=== PATIENT | male | born 1945 | race Caucasian/White ===

== ENCOUNTER 2023-10-05 00:57 | Inpatient (IN) | payer MEDICARE, BC, SELFPAY ==
[2023-10-04 22:32] VITALS: BMI 47.9
[2023-10-04 22:37] VITALS: BP 132/74
[2023-10-04 22:44] LABS: % Basophils 0.4 % (0-2); % Eosinophils 6.1 % (0-6); % Immature Granulocytes 0.2 % (0-0.5); % Lymphocytes 31.5 % (20.5-51.1); % Monocytes 15.2 % (1.7-9.3); % Neutrophils 46.6 % (42.2-75.2); Absolute Eosinophils 0.3 10^3/uL (0-0.7); Absolute Lymphocytes 1.8 10^3/uL (1.2-3.4); Absolute Monocytes 0.9 10^3/uL (0.1-0.6); Absolute Neutrophils 2.6 10^3/uL (1.4-6.5); Hematocrit 42.3 % (39.0-52.0); Hemoglobin 14.6 g/dL (13.0-18.0); Mean Corp Hgb Conc. 34.5 g/dL (33.0-37.0); Mean Corpuscular Hgb 30.5 pg (27.0-31.0); Mean Corpuscular Volume 88.5 fL (80.0-94.0); Mean Platelet Volume 10.2 fL (7.4-10.4); Nucleated Red Blood Cells % 0 % (-); Platelet Count 156 10^3/uL (130-400); Red Blood Cell Count 4.78 10^6/uL (4.70-6.10); Red Cell Dist. Width 14.3 % (11.5-14.5); White Blood Cell Count 5.6 10^3/uL (4.8-10.8)
[2023-10-04 23:00] VITALS: BP 122/59
[2023-10-04 23:02] LABS: COVID-19 Antigen Negative (Negative)
[2023-10-04 23:05] LABS: ALT (SGPT) 31 U/L (0-50); AST (SGOT) 40 U/L (17-59); Albumin 3.7 g/dl (3.5-5.0); Alkaline Phosphatase 67 U/L (38-126); Blood Urea Nitrogen 23 mg/dl (9-20); Calcium 8.2 mg/dl (8.4-10.2); Carbon Dioxide 26 mmol/L (22-30); Chloride 107 mmol/L (98-107); Glucose 114 mg/dl (70-99); Potassium 4.3 mmol/L (3.5-5.1); Sodium 136 mmol/L (135-145); Total Bilirubin 0.6 mg/dl (0.2-1.3); Total Protein 6.8 g/dl (6.3-8.2); eGFR > 60.00
[2023-10-04] MEDS: DUONEB 3 ML INH (23:07)
[2023-10-04 23:09] LABS: NT-proBNP 778 pg/ml; Troponin I < 0.012 ng/ml
[2023-10-04] MEDS: DECADRON 10 MG IV (23:21)
--- NOTE | 2023-10-04 23:21 | ED.GENMED ---
History of Present Illness
General
Chief Complaint: Breathing Problem
Source: patient
Exam Limitations: none
Time Seen by Provider: 10/04/23 23:06
Travel History
Have you had any contact with someone who has COVID-19?: No
Do you have any symptoms of coronavirus? Fever > 100 degrees, chills, cough, shortness of breath, sore throat, loss of taste or smell, muscle aches, or headache?: Yes
Symptoms:: sob/cough
History of Present Illness
History of Present Illness:
77-year-old male with history of hypertension and lymphedema prior smoker presents with 3 days worth of cough shortness of breath and wheeze. He denies chest pain. No measurable fever. He just got back from a cruise. No chest pain. No prior
history of asthma or arrhythmias. No nausea or vomiting. No other complaints at this time
Past History
Past History
ED Past Medical History: HTN, Other (morbid obesity) and Other (OA, B LE lymphedema)
ED Past Surgical History: Other (rectal/anal fissure surgery)
Social History
Tobacco: Former smoker
Alcohol: Occasional
Drug: None
Personal:
Living: with family
Employment: Retired
Family History
Family History: Other (Noncontributory)
Phy Exam
Physical Exam
Physical Exam:
General: Obese male with increased work of breathing
HEENT: Normocephalic atraumatic
Heart: Irregular rate and rhythm
Lungs: Diffuse inspiratory and expiratory wheeze
Extremities: Edema noted bilateral lower extremities
Abdomen soft nontender nondistended no guarding or rebound
Scores
Heart Failure Risk
Heart Failure Risk Score: Not Applicable
Course
Orders/Labs/Results
Orders:
Orders
10/04/23 22:33
Electrocardiogram (*1) Urgent
Reason for Study: Other
Other Reason for Exam: Respiratory Distress
Cardiac Monitoring- Treatment ONCE
EKG- Treatment ONCE
IV Insert/Care/Rem.- Treatment PRN
O2 Therapy [RESP] Urgent
Titrate/Wean O2 to maintain O2 sat greater than (%): 93
Special Instructions: TO MAINTAIN CONTINUOUS O2 SATS >/= 93%
Pulse Ox/cont/shift [RESP] Urgent
Quantity: 1
Special Instructions: continuous pulse ox
10/04/23 22:38
COVID-19 Antigen Urgent
Source: Nasal Swab
Complete Blood Count/With Diff Urgent
Comprehensive Metabolic Panel Urgent
NT-proBNP Urgent
Troponin I Urgent
Influenza A+B Rapid Molecular Urgent
SAAD Source: Nasal Swab
Specimen Description:
10/04/23 23:06
Ipratropium/Albuterol Sulfate [Duoneb] 3 ml .ROUTE .STK-MED ONE
10/04/23 23:07
Ipratropium/Albuterol Sulfate [Duoneb] 3 ml INH R NOW ONE
10/04/23 23:17
Dexamethasone Sod Phosphate [Decadron] 10 mg IV NOW STA
CR Chest Portable - 1 View Urgent
Comment:
Reason For Exam: sob
Reason Study Needs to be Portable: Patient Unstable
Abnormal Lab Results
10/04/23
22:38
Absolute Monos (auto) 0.9 H 10^3/uL
(0.1-0.6)
Monocytes % 15.2 H %
(1.7-9.3)
Eosinophils % 6.1 H %
(0-6)
BUN 23 H mg/dl
(9-20)
Glucose 114 H mg/dl
(70-99)
Calcium 8.2 L mg/dl
(8.4-10.2)
10/04/23 22:38
10/04/23 22:38
Vital Signs
Initial and Last Documented VS:
Initial Vital Signs
Temp Pulse Resp Pulse Ox
98.0 F 88 20 97
10/04/23 22:34 10/04/23 22:34 10/04/23 22:34 10/04/23 22:34
Last Documented Vital Signs
Temp Pulse Resp BP Pulse Ox
98.0 F 73 16 122/59 100
10/04/23 22:34 10/04/23 23:15 10/04/23 23:15 10/04/23 23:00 10/04/23 23:15
MDM/Problems Addressed
Differential Diagnosis Includes:
Increased respiratory effort with cough and wheeze. Consider bronchitis versus viral illness versus congestive heart failure.
EKG obtained through triage shows atrial fibrillation. No prior diagnosis of this. Onset of this is unknown.
Will check labs. Portable chest x-ray pending given the tightness on exam, will will order DuoNeb and Decadron. Patient will require admission for his work of breathing.
Influenza test is positive. He is at least 3 days into illness no indication for Tamiflu at this point
*Critical Care Note
Total Time (30-74mins, 75-104mins- exclusive of procedures): Not Applicable
ED Attending Note
-
Portions of this chart may have been created with voice recognition software.� Occasional wrong word or��sound alike� substitutions may have occurred due to the inherent limitations of voice recognition software.
Discharge Plan
Departure
Patient Disposition: Admit
Date of Disposition: 10/04/23
Time of Disposition: 23:57
Admit to: Telemetry
Presentation/result/management discussed w/ accepting MD/DO: Hospitalist
Discharge Problem:
Acute bronchitis, Influenza A, Atrial fibrillation
Prescriptions:
No Action
furosemide 20 MG tablet
20 mg PO BID
losartan 50 MG tablet
100 mg PO DAILY
triamcinolone acetonide 1 APPLIC cream
1 applic TP BID
Patient Comments:
02/27/2002- 2 weeks on then 2 weeks off
cephalexin [Keflex] 500 MG capsule
500 mg PO Q6H 6 Days Qty: 24 0RF
hydroxyzine HCl 25 MG tablet
25 mg PO BID PRN (Reason: itchiness/dizziness ) 3 Days Qty: 6 0RF
Interventions
Interventions:
*Risk Screen - Suicide Last Done: 10/04/23 22:34
*General Assessment Last Done: 10/04/23 22:34
*Neglect/Abuse Screening Last Done: 10/04/23 22:34
ED- Fall Risk Assessment Last Done: 10/04/23 22:54
*ED COVID-19 Vaccine History Last Done: 10/04/23 22:34
ED- Cardiac Assessment Last Done: 10/04/23 22:54
ED- Pulmonary Assessment Last Done: 10/04/23 22:54
[2023-10-05] VITALS (9 sets, daily range): BP systolic 117–146; BP diastolic 55–83; PULSE 86–89; O2SAT 96–97; BMI 47.0; BMI 46.9
--- NOTE | 2023-10-05 00:43 | HPS.HSE ---
Family Physician
-
Family Physician: Blaise Lizarraga
Chief Complaint
-
Cough / SOB
History of Present Illness
Patient is a 77y M with PMH significant for COPD, morbid obesity and hypertension who presents to ED complaining of cough, fatigue and SOB. Patient states that he was recently on a cruise to [facility] (out of [facility]). He developed cough and cold
symptoms about 3 days ago. He remained in his cabin on the ship for the past 2 days due to his symptoms. Patient did get some cold medicine on the ship (Contact = acetaminophen + phenylephrine). He had a cough with production of moderate amount
of yellow mucus. Pos body aches and general malaise. He notes that today he felt extremely weak and fatigued when getting off of the ship and handling luggage, etc.
He drove home and immediately went inside and fell asleep. Upon waking this evening, he felt even more SOB and presented to the ED for further evaluation.
Patient denies any chest pain or palpitations. No other current complaints or concerns.
He notes that he did have his seasonal influenza vaccination this Fall.
Patient denies any history of asthma / emphysema. I asked him about prior documented COPD and he says 'not anymore'.
Medical History
Past Medical History
Past Medical History: Reports Other
Additional Past Medical History:
COPD
Hypertension
Morbid Obesity
Chronic Lower Extremity Lymphedema / Venous Insufficiency
Past Surgical History: Reports Other
Additional Past Surgical History:
Anal Fistulectomy
Cataracts
Social History
Tobacco: Former Smoker (Quit smoking about 10 years ago. > 50 pack years total use.)
Alcohol: Occasional (History of daily beer drinking. Now only occasional.)
Drug: None
Personal:
Living: With Family
Family History
Family History: Not pertinent
Allergies / Home Medications
Allergies reflects when Allergies were last updated in [facility].
Home Medications with original date entered in [facility]
Allergy/Medication List:
Allergies
Allergy/AdvReac Type Severity Reaction Status Date / Time
No Known Allergies Allergy Verified 02/08/20 11:56
Home Medications
furosemide 20 mg tablet 20 mg PO BID Fluid retention/Swelling 05/12/16
losartan 50 mg tablet 100 mg PO DAILY Blood pressure 02/28/20
phenylephrine-acetaminophen 5 mg-500 mg tablet (Contac Cold-Flu Day) 2 tab PO Q4H 10/05/23
Review of Systems
-
History Source: Patient
A 12 point ROS was completed and negative except as noted: Yes
Constitutional: Reports Fatigue; Denies Fever or Chills
EENT: Denies Sore Throat
Respiratory: Reports Cough and Trouble Breathing
Cardiac: Denies Chest Pain or Palpitations
Abdomen/GI: Denies Abdominal Pain, Nausea, Vomiting or Diarrhea
Musculoskeletal: Reports Edema; Denies Joint Pain
Neurological: Reports Headache; Denies Dizzy
Psych: Denies Depression or Anxiety
Physical Exam
Vital Signs
Vital Signs
Temp Pulse Resp BP Pulse Ox
98.0 F 83 18 128/82 99
10/04/23 22:34 10/05/23 00:00 10/05/23 00:00 10/05/23 00:00 10/05/23 00:00
Physical Exam
General: Other (Morbidly obese 77y M in mild distress due to dyspnea.)
HEENT: Other (Thick neck.); No Moist mucous membranes
Respiratory: Other (Scattered coarse breath sounds. Diffuse expiratory wheezes.)
Cardiac: S1/S2 and Irregular Rhythm; No Murmur
GI: Soft, Non Tender, Non Distended and Normal Bowel Sounds
Musculoskeletal: No Clubbing, No Cyanosis and Other (2+ brawny edema b/l LEs.)
Neuro: AO x 3
Laboratory Results
-
03/24/24 22:38
10/04/23 22:38
Laboratory Results
Total Bilirubin 0.6 mg/dl (0.2-1.3) 10/04/23 22:38
AST 40 U/L (17-59) 10/04/23 22:38
ALT 31 U/L (0-50) 10/04/23 22:38
Alkaline Phosphatase 67 U/L (38-126) 10/04/23 22:38
Troponin I < 0.012 ng/ml 10/04/23 22:38
Impression/Plan
-
A/P: Patient is a 77y M with PMH significant for morbid obesity, HTN and COPD who presents to ED complaining of cough and SOB.
Influenza A Pneumonia
Acute Hypoxemic Respiratory Insufficiency secondary to the above
- Admit for further evaluation and treatment.
- Patient with positive Flu A assay here in the ED, recent cruise and 3 days of symptoms.
- Oxygen saturations at the time of my examination were 85% on room air and increased to 94% on 2lpm of supplemental oxygen.
- As he is being hospitalized, will begin therapy with Tamiflu 75mg BID.
- Patient did receive his seasonal vaccination.
- Follow proper precautions.
- Treat associated COPD as noted below.
- Follow for clinical improvement.
COPD with Acute Exacerbation secondary to the above
- Patient with hypoxemia, expiratory wheezing and cough.
- History of COPD and reviewed that this is not resolved after he quit smoking.
- Not on any daily / maintenance medications.
- IV steroids for now and taper / transition to oral regimen as symptoms improve.
- DuoNebs ATC and albuterol PRN.
- Would consider Pulmonary evaluation as an outpatient.
Atrial Fibrillation - New
- Patient with no prior history of A-Fib.
- ? if this is secondary to acute illness + use of phenylephrine for his cold symptoms.
- Hold further phenylephrine.
- Monitor on telemetry. Current rate controlled off of chronotropic meds.
- Begin Eliquis BID for stroke risk reductions / DVT prevention / etc.
- Cardiology evaluation given new diagnosis.
- Check Echo.
Benign Hypertension
- Stable. Continue losartan with holding parameters.
Chronic Lymphedema
- Patient with chronic venous insufficiency and edema and maintained on loop diuretic x many years.
- Continue current Lasix dose for now.
- Check Echo as noted above.
- Follow I/Os, daily weights, etc.
Morbid Obesity due to Excess Calories
- Affects all aspects of care and specifically respiratory compromise.
- Encourage efforts at healthy diet / exercise with goal of weight loss.
DVT Prophylaxis
- Beginning Eliquis as noted above.
- Has risk factors for VTE; however, current symptoms are likely explained by his influenza, COPD etc.
- Beginning therapeutic anticoagulation in any event secondary to new A-Fib.
- Could consider CTA chest / PE study if symptoms worse or do not improve.
Code Status: Full
[2023-10-05 02:12] LABS: Hematocrit 43.5 % (39.0-52.0); Mean Corp Hgb Conc. 34.5 g/dL (33.0-37.0); Mean Corpuscular Hgb 30.5 pg (27.0-31.0); Mean Corpuscular Volume 88.6 fL (80.0-94.0); Platelet Count 164 10^3/uL (130-400); Red Blood Cell Count 4.91 10^6/uL (4.70-6.10); Red Cell Dist. Width 14.3 % (11.5-14.5); White Blood Cell Count 5.4 10^3/uL (4.8-10.8)
[2023-10-05 02:31] LABS: Blood Urea Nitrogen 22 mg/dl (9-20); Calcium 8.1 mg/dl (8.4-10.2); Carbon Dioxide 27 mmol/L (22-30); Chloride 106 mmol/L (98-107); Estimated Creatinine Clearance 109 ml/min; Glucose 138 mg/dl (70-99); Potassium 4.6 mmol/L (3.5-5.1); Sodium 138 mmol/L (135-145); eGFR > 60.00
[2023-10-05] MEDS: TAMIFLU 75 MG PO ×3 (02:34→20:07)
[2023-10-05 02:37] LABS: Troponin I < 0.012 ng/ml
[2023-10-05 03:02] LABS: TSH Reflex To Free T4 1.49 uIU/ml (0.47-4.68)
[2023-10-05] MEDS: DUONEB 3 ML INH ×3 (07:29→20:14)
[2023-10-05] MEDS: ELIQUIS 5 MG PO ×2 (08:02→20:06)
[2023-10-05] MEDS: COZAAR 100 MG PO (08:02)
[2023-10-05] MEDS: LASIX 20 MG PO ×2 (08:02→20:06)
[2023-10-05] MEDS: MUCINEX 1200 MG PO ×2 (08:02→20:07)
[2023-10-05] MEDS: DECADRON 4 MG IV ×2 (08:03→15:34)
[2023-10-05 09:29] LABS: Troponin I < 0.012 ng/ml
--- NOTE | 2023-10-05 09:29 | CON.CAR ---
Addendum entered and electronically signed by Jose Antonio Church MD 10/05/23 11:20:
I saw and examined the patient.
The CASTING AND CURING OPERATOR or PA's note was reviewed and I agree with the note.
Comment: General: Well developed, well nourished in NAD.
Neck: Supple, no JVD, HJR, carotids +2 B/L, no bruits bilaterally.
Heart: Non displaced PMI, irregular, no murmurs, No S3, S4, no rubs.
Lungs: Scattered rhonchi
Extremities: No clubbing, cyanosis or edema bilaterally.
Neuro: Grossly nonfocal, awake, alert and oriented x3.
Antione has a history of hypertension, hyperlipidemia, COPD, lymphedema, spinal stenosis. He presented with shortness of breath. He is found to have flu and also atrial fibrillation. He denies any palpitations. Note he is on 4 L on admission and
remains on 4 L of oxygen.
Continue to treat for flu. There are no signs or symptoms of CHF. proBNP is only in the 700s and chest x-ray was unremarkable. Will check echocardiogram. Will rate control with Cardizem and Eliquis has been added. Could consider outpatient
cardioversion if remains in A-fib but the duration of A-fib is unclear and likelihood of staying in sinus rhythm is unclear and may be low.. He denies sleep apnea but clearly has habitus for sleep apnea. Treatment of sleep apnea would help prevent
recurrent A-fib
Original Note:
Consultation
Consultation Request
Date/Time Consultation Requested: 10/05/2023
Date/Time Consultation Performed: 10/05/2023 at 0900
Requesting Provider: Dr. De Los Santos
Performing Provider: Dr. Church
Reason for Consultation: New Afib
Medical History
-
History of Present Illness:
HPI: Enrique is a 77 year old male with PMH of HTN, HLD, COPD, lymphedema, and spinal stenosis who presented to [facility] for evaluation of SOB. He was recently on a cruise and returned home yesterday. He states while getting off the cruise and back to
his car, he started to notice he felt more SOB and dizzy with exertion. When he got home he was exhausted and went to bed, but states he could not sleep and continued to feel short of breath, prompting him to call EMS. He was brought to [facility] where
he tested positive for influenza A. He was started on tamiflu as well as IV steroids and nebs. He was hypoxic and placed on 4L NC which he remains on at this time. EKG on arrival showed he was in rate controlled atrial fibrillation. He reports no
prior diagnosis of afib and denies any palpitations. He was admitted for further treatment and evaluation and cardiology was consulted for new afib. He reports he is feeling well this morning and denies any SOB while on supplemental O2, sitting up
in bed eating breakfast.
PMH:
HTN
HLD
COPD
Lymphedema
Spinal stenosis
Past Medical History
Past Medical History: Other (In HPI)
Social History
Tobacco: Former Smoker
Alcohol: Occasional
Drug: None
Personal:
Living: With Family
Employment: Retired
Family History
Family History: CAD and Cancer
Allergies / Home Medications
Allergy/AdvReac Type Severity Reaction Status Date / Time
latex Allergy Itching Verified 10/05/23 07:17
Medication Instructions Recorded Confirmed Type
furosemide 20 mg tablet 20 mg PO BID Fluid 05/12/16 10/05/23 History
retention/Swelling
losartan 50 mg tablet 100 mg PO DAILY Blood pressure 02/28/20 10/05/23 History
phenylephrine-acetaminophen 5 2 tab PO Q4H 10/05/23 History
mg-500 mg tablet (Contac Cold-Flu
Day)
Review of Systems
-
History Source: Patient
All other systems: Negative unless noted
Physical Exam
Vital Signs
Temp Pulse Resp BP Pulse Ox
97.5 F 75 16 143/83 95
10/05/23 07:20 10/05/23 08:02 10/05/23 07:37 10/05/23 08:02 10/05/23 07:37
Lab Results
10/05/23 02:06
10/05/23 02:07
Troponin I < 0.012 ng/ml 10/05/23 08:36
Jnb-Y-Fctsfehswjq Pept 778 pg/ml 10/04/23 22:38
Physical Exam
General: Well Developed, Well Nourished and No Apparent Distress
HEENT: Normocephalic, Anicteric and Moist Mucous Membranes
Respiratory: Rhonchi and Non Labored Respirations
Cardiac: S1/S2 and Irregular Rhythm
Musculoskeletal: No Clubbing, No Cyanosis and Edema
Skin: Warm and Dry
Neuro: AO x 3 and Nonfocal/Grossly Intact
Psych: Calm
Impression / Plan
-
PCP: Blaise Lizarraga PA-C
Rigging Slinger: Dr. Church, last seen in 2015
Impression:
Presented with SOB
Influenza A
COPD w/ acute exacerbation
Atrial fibrillation - new diagnosis of unknown duration
HTN
HLD
COPD
Lymphedema
Spinal stenosis
Echo 03/17/2018: EF 50-55%, moderate cLVH, no significant valvular disease
Echo 10/05/2023: Study pending
Plan:
-Presented with SOB after recent cruise. Admitted w/ acute COPD exacerbation and influenza A. Continue steroids/nebs/tamiflu per primary service.
-In new rate controlled afib on review of EKG. Unknown duration. Patient denies any palpitations or prior knowledge of Afib.
-Eliquis 5mg BID started this admission. Will have CM assess cost.
-HR stable in 60s to 70s. Not on any rate control medications at this time. Consider starting pending echo results.
-Check echo to assess EF and for valvular disease. Last echo in 2018 with preserved EF and no significant valvular disease.
-TSH 1.49.
-Troponin negative x 3. ProBNP 778. Continue PO lasix for lymphedema.
-Discussed consideration for sleep study as OP.
-BP overall stable on losartan 100mg daily and lasix 20mg BID
-On 4L NC, wean as able.
HPI: Enrique is a 77 year old male with PMH of HTN, HLD, COPD, lymphedema, and spinal stenosis who presented to [facility] for evaluation of SOB. He was recently on a cruise and returned home yesterday. He states while getting off the cruise and back to
his car, he started to notice he felt more SOB and dizzy with exertion. When he got home he was exhausted and went to bed, but states he could not sleep and continued to feel short of breath, prompting him to call EMS. He was brought to [facility] where
he tested positive for influenza A. He was started on tamiflu as well as IV steroids and nebs. He was hypoxic and placed on 4L NC which he remains on at this time. EKG on arrival showed he was in rate controlled atrial fibrillation. He reports no
prior diagnosis of afib and denies any palpitations. He was admitted for further treatment and evaluation and cardiology was consulted for new afib. He reports he is feeling well this morning and denies any SOB while on supplemental O2, sitting up
in bed eating breakfast.
Data Reviewed
-
EKG: Tracing Personally Visualized and interpreted
Radiology: Report Reviewed by me
Labs: Labs Reviewed by me
Old Records: Reviewed
--- NOTE | 2023-10-05 10:47 | W.PN.HOSP.TC ---
Today's Communication/Plan
-
CT chest
steroids
ECHO
Assessment / Plan
Assessment / Plan
A/P:� Patient is a 77y M with PMH significant for morbid obesity, HTN and COPD who presents to ED complaining of cough and SOB.
Influenza A Pneumonia
Acute Hypoxemic Respiratory failure secondary to the above
�- Patient with positive Flu A assay here in the ED, recent cruise and 3 days of symptoms.
�- Oxygen saturations at the time of my examination were 85% on room air
�- Tamiflu 75mg BID.
�- Patient did receive his seasonal vaccination.
�- Follow proper precautions.
�- Treat associated COPD as noted below.
�- Follow for clinical improvement.
- Checking CT PE study
COPD with Acute Exacerbation secondary to the above
�- Patient with hypoxemia, expiratory wheezing and cough.
�- History of COPD and reviewed that this is not resolved after he quit smoking.
�- Not on any daily / maintenance medications.
�- IV steroids for now and taper / transition to oral regimen as symptoms improve.
�- DuoNebs ATC and albuterol PRN.
�- Would consider Pulmonary evaluation as an outpatient.
Atrial Fibrillation - New
�- Patient with no prior history of A-Fib.
�- ? if this is secondary to acute illness + use of phenylephrine for his cold symptoms.
�- Hold further phenylephrine.
�- Monitor on telemetry.� Current rate controlled off of chronotropic meds.
�- Begin Eliquis BIDe for stroke risk reductions / DVT prevention / etc.
�- Cardiology evaluation given new diagnosis.
�- Check Echo.
Benign Hypertension
�- Stable.� Continue losartan with holding parameters.
Chronic Lymphedema
�- Patient with chronic venous insufficiency and edema and maintained on loop diuretic x many years.
�- Continue current Lasix dose for now.
�- Check Echo as noted above.
�- Follow I/Os, daily weights, etc.
Morbid Obesity due to Excess Calories
�- Affects all aspects of care and specifically respiratory compromise.
�- Encourage efforts at healthy diet / exercise with goal of weight loss.
Hands and feet burning sensation-?neuropathy.
-Used to drink heavy in the past-10 beers a day. Currently not drinking
DVT Prophylaxis�-eliquis
Code Status:� Full
Anticipated Discharge: > 48 hours
Subjective/Interval History
-
Date of Service: October 05, 2023
On 4L oxygen currently
overnight required 5-6L
states cough has improved
Objective Data
-
Labs:
Laboratory Results
10/04/23 10/05/23 10/05/23
22:38 02:06 02:07
WBC 5.6 5.4
Hgb 14.6 15.0
Hct 42.3 43.5
Plt Count 156 164
Sodium 136 138
Potassium 4.3 4.6
Chloride 107 106
Carbon Dioxide 26 27
BUN 23 H 22 H
Creatinine 1.0 0.9
Glucose 114 H 138 H
Calcium 8.2 L 8.1 L
Total Bilirubin 0.6
AST 40
ALT 31
Alkaline Phosphatase 67
Vital Signs:
Vital Signs
Temp Pulse Resp BP Pulse Ox
97.5 F 75 16 143/83 95
10/05/23 07:20 10/05/23 08:02 10/05/23 07:37 10/05/23 08:02 10/05/23 09:50
I&O
10/04/23 10/05/23 10/06/23
06:59 06:59 06:59
Intake Total 320 / 320
Balance 320 / 320
Physical Exam
-
General: Well Developed, No Apparent Distress and Morbidly Obese
HEENT: Normocephalic, Atraumatic, Moist Mucous Membranes and Oxygen (4L NC )
Respiratory: Rhonchi and Decreased Breath Sounds
Cardiac: S1/S2; Negative Murmur, Rub or Gallop
GI: Soft, Nontender, Nondistended and Normal Bowel Sounds; Negative Organomegaly
Rectal: Deferred by Provider
Musculoskeletal: No Clubbing, No Cyanosis, No Edema, Edema, Right Lower Extrem and Edema, Left Lower Extrem
Skin: Negative Rash
Neuro: Awake, Alert, Oriented, AO x 3, No Motor Deficits and Nonfocal/Grossly Intact
Psych: Calm
--- NOTE | 2023-10-05 11:00 | PTOTSP ---
pt currently demonstrates ability to complete simple ADLs, functional transfers, ambulation with supervision. pt does demonstrate shortness of breath and wheezing with minimal tasks. educated pt on energy conservation techniques, including adaptive
equipment for dressing and bathing, use of walker to achieve ambulatory distance goals. no acute OT needs identified, encouraged pt OOB and to increase activity as tolerated. will sign off at this time.
[2023-10-05] MEDS: DUONEB INH (11:42)
--- NOTE | 2023-10-05 13:04 | CON.PUL ---
Consultation
Consultation Request
Date/Time Consultation Requested: 10/05/23
Date/Time Consultation Performed: 10/05/23
Performing Provider: Richard
Reason for Consultation: Hypoxemia
Medical History
-
History of Present Illness:
Patient is a 77 year old M with PMH significant for COPD, morbid obesity and hypertension who presents to ED complaining of cough, fatigue, SOB, generalized malaise and body aches.� Patient states that he was recently on a cruise to [place] [employer] (out
of [facility]).� He developed cough and cold symptoms about 3 days ago.� COVID testing negative.
Has required O2 since admission, no prior history of use. He is currently on 5L NC.
Former smoker, told he has COPD in past, no PFTs for review. Has never seen pulmonary.
feels he may have sleep apnea, +snoring/apneas.
.
Past Medical History
Past Medical History: Other (see list below)
Social History
Tobacco: Former Smoker (started age 12, up to 3PPD, quit 9 years ago)
Alcohol: None
Drug: None
Family History
Family History: Reviewed & Not Pertinent
Allergies / Home Medications
Allergies
Allergy/AdvReac Type Severity Reaction Status Date / Time
latex Allergy Itching Verified 10/05/23 07:17
Home Medications
Medication Instructions Recorded Confirmed Last Taken Type
furosemide 20 mg tablet 20 mg PO BID Fluid 05/12/16 10/05/23 02/28/20 History
retention/Swelling
losartan 50 mg tablet 100 mg PO DAILY Blood pressure 02/28/20 10/05/23 02/28/20 History
phenylephrine-acetaminophen 5 2 tab PO Q4H Congestion 10/05/23 Unknown History
mg-500 mg tablet (Contac Cold-Flu
Day)
Review of Systems
-
History Source: Patient
All other systems: Negative unless noted
Vitals / Labs / Diagnostic Testing
Vital Signs
Temp Pulse Resp BP Pulse Ox
97.3 F 87 24 146/83 96
10/05/23 11:12 10/05/23 11:12 10/05/23 11:12 10/05/23 11:12 10/05/23 11:12
Lab Data
10/05/23 02:06
10/05/23 02:07
Microbiology
10/04/23 22:38 Nasal Swab Influenza Types A & B (ELMER) - Final
Influenza A Positive, NAAT
Diagnostic Testing:
Physical Exam
-
HEENT: Normocephalic, Anicteric and Moist Mucous Membranes
Cardiovascular: S1/S2 and Regular Rhythm
Respiratory: Wheeze (slight wheeze but overall with poor air movement) and Non-Labored Respirations
GI: Soft, Non Distended and Non Tender
Neurology: Awake, Alert, Oriented, AO x 3 and No Motor Deficits
Skin: Warm, Dry and Good Color
General: Comfortable and Other (obese, SOB with conversation)
Assessment
-
Patient is a 77 year old M with PMH significant for COPD, morbid obesity and hypertension who presents to ED complaining of cough, fatigue, SOB, generalized malaise and body aches.� Patient states that he was recently on a cruise to [facility] (out
of [facility]).� He developed cough and cold symptoms about 3 days ago.� COVID testing negative. Has needed up to 5L on admission, no prior history of O2 use at home. We are consulted for eval.
Acute hypoxic respiratory failure
Possible URI given body aches/malaise/fatigue
AECOPD suspected
Suspected JESSICA, undiagnosed/untreated
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
COPD
Hypertension� �
HLD
Tobacco use-- up to 3 PPD for 50 years, quit 9 years ago
Morbid Obesity, BMI 46.9
Bilateral edema of lower extremity/chronic lymphedema
History of LE cellulitis
Tear of meniscus of left knee
Cataracts� �
Impaired fasting glucose
Plan
Hypoxemia noted on arrival, placed on 5L NC
Has required O2 since admission, no prior history of use.
Prior history of lung disease is noted including COPD, former smoker
Was told he has COPD in past, no PFTs for review. Has never seen pulmonary.
AECOPD suspected, placed on IV steroids
Obtain baseline PFT, bedside reyna
Can obtain 6MWT to eval O2 needs
CXR obtained indicating NAD
Other imaging reviewed--CT with mosaicism, likely underlying OLD
No emphysema noted, will need full PFT as OP
COPD education
Will initiate maintenance inhalers post study
Repeat ECHO results pending, prior test reviewed with stable function
proBNP neg on admission
Chronic LE edema is noted, on lasix as OP
Will need outpatient pulmonary evaluation in our office for PFTs and 6MWT
Reviewed with patient
feels he may have sleep apnea, +snoring/apneas.
Risk factors assessed for underlying sleep disordered breathing also noted, recommend outpatient PSG/sleep evaluation
Smoking history noted--150 pack years, quit 9 years ago
Continued smoking cessation
Will need yearly LDCT, CT obtained this year negative, next due 2024
Weight loss measures recommended
Obesity contributing to respiratory symptoms
We will follow
Diagnostic Data
Chest X-Ray: 10/04/23- Mild cardiomegaly. No acute pulmonary process.
CT Scan: CHEST 10/05/23- 1. No evidence of pulmonary embolism or thoracic aortic dissection.
2. Scattered foci of groundglass opacity and mosaic perfusion bilaterally, most suggestive of atypical infection/inflammation.
3. Mild ossification of the proximal LAD. Please correlate with symptoms of and risk factors for coronary artery disease, with further workup as clinically appropriate.
Echo: 03/17/18- Normal left ventricular chamber size. Normal left ventricular systolic�function. Left ventricular ejection fraction is 50-55%.�Moderate concentric left ventricular hypertrophy (1.5 cm).�No significant valvular disease.
Otherwise normal.�Compared to previous echo� 11/03/14 there is no significant change.
PFT's:
Reports and relevant images were personally reviewed.
--- NOTE | 2023-10-05 13:35 | CM ---
Addendum entered by Charissa Beal 10/05/23 17:00:
Per MD request: Eliquis 5mg BID x 60 tabs is $467.68. Patient has been given an Eliquis coupon for 1 month that can be used with his Medicare. Patient and have a [facility] med plan but it is for Catastrophic use.
Original Note:
Initial assessment completed with patient who lives with his in a 2 story elevator home with B/B on 1st floor and 1/2 bath on 2nd, 1 step to enter home. Patient has 2 battery operated scooters, his also uses, and a RW. No services in the
home, no O2, no psychiatric hospitalizations. is HC POA. Pharmacy is [facility] in [place] and PCP is Dr. Blaise Lizarraga. Patient was on a cruise when he became ill. ANTICIPATE NO NEEDS AT DISCHARGE.
[2023-10-05 13:43] LABS: Procalcitonin < 0.05 ng/ml (0.0-0.25)
--- NOTE | 2023-10-05 13:50 | CARDSERVDEF ---
Echocardiogram with Definity completed after protocol screening completed. Allergies verified.
Patent IV site: __L hand___
IV site flushed with 0.9% NaCl pre and post administration.
Diluted bolus method utilized to enhance visualization of ventricular holden.
Total volume given: __4__ mL
Patient tolerated all procedures well without complications.
[2023-10-05] MEDS: REFRESH EYE DROPS (PF) 1 DROPS OPHTH ×2 (14:39→20:07)
--- NOTE | 2023-10-05 23:52 | PTCARENOTE ---
While patient sleeping, patient briefly desat as low at 74% while on 6L nasal cannula. Patient quickly recovers to 88-94% on 6L NC. Patient noted to be breathing through his mouth. Upon waking patient - patient quickly recovers to 92-95% on 6L NC.
Patient offering no complaints. CHIEF GUARD notified. Respiratory notified. Patient placed on venturi mask @ 50%. Patient POX 94-97% with venturi mask @ 50%.
[2023-10-06] MEDS: DECADRON 4 MG IV ×4 (00:08→23:20)
[2023-10-06 03:07] VITALS: BP 131/78
[2023-10-06 04:58] LABS: % Basophils 0.1 % (0-2); % Immature Granulocytes 0.5 % (0-0.5); % Lymphocytes 9.6 % (20.5-51.1); % Monocytes 4.3 % (1.7-9.3); % Neutrophils 85.5 % (42.2-75.2); Absolute Immature Granulocytes 0.1 10^3/uL (0-0.05); Absolute Lymphocytes 0.9 10^3/uL (1.2-3.4); Absolute Monocytes 0.4 10^3/uL (0.1-0.6); Hematocrit 40.7 % (39.0-52.0); Hemoglobin 13.9 g/dL (13.0-18.0); Mean Corp Hgb Conc. 34.2 g/dL (33.0-37.0); Mean Corpuscular Hgb 30.6 pg (27.0-31.0); Mean Corpuscular Volume 89.6 fL (80.0-94.0); Mean Platelet Volume 10.4 fL (7.4-10.4); Nucleated Red Blood Cells % 0 % (-); Platelet Count 188 10^3/uL (130-400); Red Blood Cell Count 4.54 10^6/uL (4.70-6.10); Red Cell Dist. Width 14.6 % (11.5-14.5); White Blood Cell Count 9.3 10^3/uL (4.8-10.8)
[2023-10-06 05:42] VITALS: BMI 46.6
[2023-10-06 05:48] LABS: Blood Urea Nitrogen 26 mg/dl (9-20); Calcium 8.2 mg/dl (8.4-10.2); Carbon Dioxide 25 mmol/L (22-30); Chloride 105 mmol/L (98-107); Estimated Creatinine Clearance 122 ml/min; Glucose 152 mg/dl (70-99); Potassium 5.1 mmol/L (3.5-5.1); Sodium 135 mmol/L (135-145); eGFR > 60.00
[2023-10-06 06:00] VITALS: BMI 46.6
[2023-10-06] MEDS: DUONEB 3 ML INH ×2 (07:21→11:15)
[2023-10-06 07:47] VITALS: BP 122/73
[2023-10-06] MEDS: TAMIFLU 75 MG PO ×2 (08:45→20:38)
[2023-10-06] MEDS: ELIQUIS 5 MG PO ×2 (08:46→20:38)
[2023-10-06] MEDS: COZAAR 100 MG PO (08:48)
[2023-10-06] MEDS: MUCINEX 1200 MG PO ×2 (08:49→20:38)
[2023-10-06] MEDS: LASIX 20 MG PO ×2 (08:51→20:38)
[2023-10-06] MEDS: FLUSH (NSS) 2 FLUSH IV (08:54)
[2023-10-06] MEDS: REFRESH EYE DROPS (PF) 1 DROPS OPHTH ×2 (08:55→20:38)
--- NOTE | 2023-10-06 09:11 | W.PN.PUL3 ---
Today's Communication / Plan
-
Start inhalers, COPD education to continue as OP
Wean steroids as tolerated
6MWT showing severe deconditioning, needs OOB/PT/OT
Repeat home O2 eval again closer to discharge
Assessment
-
Patient is a 77 year old M with PMH significant for COPD, morbid obesity and hypertension who presents to ED complaining of cough, fatigue, SOB, generalized malaise and body aches.� Patient states that he was recently on a cruise to [facility] (out
of [facility]).� He developed cough and cold symptoms about 3 days ago.� COVID testing negative. Has needed up to 5L on admission, no prior history of O2 use at home. We are consulted for eval.
Acute hypoxic respiratory failure
Possible URI given body aches/malaise/fatigue
AECOPD suspected
Suspected JESSICA, undiagnosed/untreated
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
COPD-severe
FEV1 1.53L 45%, ratio 62 10/05/23
Hypertension� �
HLD
Tobacco use-- up to 3 PPD for 50 years, quit 9 years ago
Morbid Obesity, BMI 46.9
Bilateral edema of lower extremity/chronic lymphedema
History of LE cellulitis
Tear of meniscus of left knee
Cataracts� �
Impaired fasting glucose
Plan
Hypoxemia noted on arrival, placed on 5L NC, weaned down to 3L NC
Has required O2 since admission, no prior history of use.
Prior history of lung disease is noted including COPD, former smoker
Was told he has COPD in past, no PFTs for review. Has never seen pulmonary.
AECOPD suspected, placed on IV steroids
Obtain baseline PFT, bedside long
Showing severe obstruction, we reviewed this
Will start inhalers/education to continue as OP
Can obtain 6MWT to eval O2 needs
O2 marysol 89%, placed on 2L only due to dyspnea score 7/10 out of proportion to sat/HR, indicating severe deconditioning
This was reviewed with patient, he admits he is very sedentary
CXR obtained indicating NAD
Other imaging reviewed--CT with mosaicism, likely underlying OLD
No emphysema noted, will need full PFT as OP
COPD education
Will initiate maintenance inhalers post study
Repeat ECHO results pending, prior test reviewed with stable function
proBNP neg on admission
Chronic LE edema is noted, on lasix as OP
Will need outpatient pulmonary evaluation in our office for PFTs and 6MWT
Reviewed with patient
feels he may have sleep apnea, +snoring/apneas.
Risk factors assessed for underlying sleep disordered breathing also noted, recommend outpatient PSG/sleep evaluation
Smoking history noted--150 pack years, quit 9 years ago
Continued smoking cessation
Will need yearly LDCT, CT obtained this year negative, next due 2024
Weight loss measures recommended
Obesity contributing to respiratory symptoms
PT/OT, needs OOB/ambulation
Diagnostic Data
Chest X-Ray: 10/04/23- Mild cardiomegaly. No acute pulmonary process.
CT Scan: CHEST 10/05/23- 1. No evidence of pulmonary embolism or thoracic aortic dissection.
2. Scattered foci of groundglass opacity and mosaic perfusion bilaterally, most suggestive of atypical infection/inflammation.
3. Mild ossification of the proximal LAD. Please correlate with symptoms of and risk factors for coronary artery disease, with further workup as clinically appropriate.
Echo: 03/17/18- Normal left ventricular chamber size. Normal left ventricular systolic�function. Left ventricular ejection fraction is 50-55%.�Moderate concentric left ventricular hypertrophy (1.5 cm).�No significant valvular disease.
Otherwise normal.�Compared to previous echo� 11/03/14 there is no significant change.
PFT's: Long 10/05/23- FEV1 1.53L 45%, ratio 62--severe obstruction
Reports and relevant images were personally reviewed.
Subjective Data
-
Date of Service:
Date of Service: October 06, 2023
Chief Complaint: Pulmonary Follow Up
Subjective:
patient seen and examined, no acute events ON
SOB the same/slightly better
Objective Data
Data Reviewed
Vital Signs / I&O / Oxygen:
Vital Signs
Temp Pulse Resp BP Pulse Ox
97.3 F 88 20 122/73 97
10/06/23 07:47 10/06/23 07:47 10/06/23 07:47 10/06/23 07:47 10/06/23 07:47
Intake and Output
10/05/23 10/06/23 10/07/23
06:59 06:59 06:59
Intake Total 320 / 320 1000 / 1000
Output Total 575 / 575
Balance 320 / 320 425 / 425
SaO2 97
Nasal Cannula flow liters per 10
minute
Physical Exam
General: Comfortable and Other (NAD, obese)
HEENT: Normocephalic, Anicteric and Moist Mucous Membranes
Cardiovascular: S1-S2 and Regular Rhythm
Respiratory: Wheeze (slight) and Non-Labored Respirations
GI: Soft, Distended (obese/protuberant), Non Tender and Normal Bowel Sounds
Neurology: Awake, Alert, Oriented, AO x 3 and No Motor Deficits
Skin: Warm, Dry and Good Color
Labs/Micro/Reports
Lab Data
10/06/23 04:02
10/06/23 04:02
Microbiology
10/05/23 15:48 Urine Legionella Urinary Antigen - Final
Negative for Legionella pneumophila Serogroup 1 antigen.
A negative result does not rule out the possiblity of
Legionella infection due to other serogroups or species of
Legionella. Clinical correlation is recommended.
10/05/23 15:48 Urine Streptococcus pneumoniae Antigen (M - Final
Negative for Streptococcus pneumoniae antigen.
A negative result does not exclude infection with
Streptococcus pneumoniae. Clinical correlation is
recommended.
10/04/23 22:38 Nasal Swab Influenza Types A & B (ELMER) - Final
Influenza A Positive, NAAT
--- NOTE | 2023-10-06 09:51 | W.PN.CARDCBS ---
Today's Communication / Plan
-
Continue Eliquis.
A-fib is rate controlled.
CT scan with no pulmonary embolism.
Echo reviewed with preserved ejection fraction and some RV hypokinesis.
Would consider cardioversion as outpatient.
Continue to treat COPD/flu
Will need outpatient sleep study as likely has significant sleep apnea
Impression / Plan
-
PCP: Blaise Lizarraga PA-C
Roper Operator: Dr. Church, last seen in 2015
Impression:
Presented with SOB
Influenza A
COPD w/ acute exacerbation
Atrial fibrillation - new diagnosis of unknown duration
HTN
HLD
COPD
Lymphedema
Spinal stenosis
Echo 03/17/2018: EF 50-55%, moderate cLVH, no significant valvular disease
Echo 10/05/2023: EF 55-60%, dilated atrium, RV dilated with RV hypokinesis
Plan:
-A-fib is rate controlled. Continue rate control strategy. Continue Eliquis. His heart rates are controlled off all AV umang blockers.
-Continue to treat flu and COPD for now. If remains in A-fib in 1 month with an proceed with cardioversion.
-Echo with preserved ejection fraction, dilated atrium, and some RV hypokinesis.
-Chest CT with no evidence of pulmonary embolism.
-TSH 1.49.
-Troponin negative x 3. ProBNP 778. Continue PO lasix for lymphedema.
-Discussed consideration for sleep study as OP.
HPI: Enrique is a 77 year old male with PMH of HTN, HLD, COPD, lymphedema, and spinal stenosis who presented to [facility] for evaluation of SOB. He was recently on a cruise and returned home yesterday. He states while getting off the cruise and back to
his car, he started to notice he felt more SOB and dizzy with exertion. When he got home he was exhausted and went to bed, but states he could not sleep and continued to feel short of breath, prompting him to call EMS. He was brought to [facility] where
he tested positive for influenza A. He was started on tamiflu as well as IV steroids and nebs. He was hypoxic and placed on 4L NC which he remains on at this time. EKG on arrival showed he was in rate controlled atrial fibrillation. He reports no
prior diagnosis of afib and denies any palpitations. He was admitted for further treatment and evaluation and cardiology was consulted for new afib. He reports he is feeling well this morning and denies any SOB while on supplemental O2, sitting up
in bed eating breakfast.
Progress Note - Roper Operator
Subjective
Date of Service: October 06, 2023
Breathing is improving. Feels no palpitations.
Objective
Labs:
10/06/23 04:02
10/06/23 04:02
Labs
Hgb 13.9 g/dL (13.0-18.0) 10/06/23 04:02
Hct 40.7 % (39.0-52.0) 10/06/23 04:02
Plt Count 188 10^3/uL (130-400) 10/06/23 04:02
Sodium 135 mmol/L (135-145) 10/06/23 04:02
Potassium 5.1 mmol/L (3.5-5.1) 10/06/23 04:02
BUN 26 mg/dl (9-20) H 10/06/23 04:02
Creatinine 0.8 mg/dL (0.7-1.3) 10/06/23 04:02
Glucose 152 mg/dl (70-99) H 10/06/23 04:02
Troponins
10/04/23 10/05/23 10/05/23
22:38 02:07 07:40
Troponin I < 0.012 < 0.012 Cancelled
10/05/23 10/05/23
08:36 13:50
Troponin I < 0.012 Cancelled
Vital Signs and I&O:
Vital Signs
Temp Pulse Resp BP Pulse Ox
97.3 F 88 20 122/73 97
10/06/23 07:47 10/06/23 07:47 10/06/23 07:47 10/06/23 07:47 10/06/23 07:47
Vital Signs
Temp Pulse Resp BP Pulse Ox
97.3 F 88 20 122/73 97
10/06/23 07:47 10/06/23 07:47 10/06/23 07:47 10/06/23 07:47 10/06/23 07:47
Intake & Output
10/04/23 10/05/23 10/06/23 10/07/23
06:59 06:59 06:59 06:59
Intake Total 320 / 320 1000 / 1000
Output Total 575 / 575
Balance 320 / 320 425 / 425
Physical Exam
Physical Exam
GEN: No distress, awake, Ox3
HEENT: supple, anicteric, mmm
LUNGS: scatt rhonchi
CV: irreg, S1/S2, 1/6 syst LSB, no gallop
ABD: soft, BS+, NT/ND
EXT: trace edema
NEURO: Gross non-focal
SKIN: No rash
--- NOTE | 2023-10-06 10:45 | W.PN.HOSP.TC ---
Today's Communication/Plan
-
IV steroids
wean o2
rate control
eliquis
Assessment / Plan
Assessment / Plan
A/P:� Patient is a 77y M with PMH significant for morbid obesity, HTN and COPD who presents to ED complaining of cough and SOB.
Influenza A Pneumonia
Acute Hypoxemic Respiratory failure secondary to the above
�- Patient with positive Flu A assay here in the ED, recent cruise and 3 days of symptoms.
�- Oxygen saturations at the time of my examination were 85% on room air
�- Tamiflu 75mg BID.
�- Patient did receive his seasonal vaccination.
�- Follow proper precautions.
�- Treat associated COPD as noted below.
�- Follow for clinical improvement.
- CT chest negative for pulmonary embolism. Scattered foci of groundglass opacity and mosaic perfusion bilaterally, most suggestive of atypical infection/inflammation. Mild ossification of the proximal LAD. Please correlate with symptoms of and
risk factors for coronary artery disease, with further workup as clinically appropriate.
-Pro-Francisco negative. Urine strep and Legionella antigen negative. Check sputum sample.
- Appreciate pulmonary input
COPD with Acute Exacerbation secondary to the above
�- Patient with hypoxemia, expiratory wheezing and cough.
�- History of COPD and reviewed that this is not resolved after he quit smoking.
�- Not on any daily / maintenance medications.
�- IV steroids for now and taper / transition to oral regimen as symptoms improve.
�- DuoNebs ATC and albuterol PRN.
Atrial Fibrillation - New
�- Patient with no prior history of A-Fib.
�- ? if this is secondary to acute illness + use of phenylephrine for his cold symptoms.
�- Hold further phenylephrine.
�- Monitor on telemetry.� Current rate controlled off of chronotropic meds.
�- Begin Eliquis BIDe for stroke risk reductions / DVT prevention / etc.
�- Cardiology evaluation given new diagnosis.
�-Echo with EF 55 to 60% with diastolic function indeterminate. Severely dilated left and right atrium. Right ventricular hypokinesis.
Benign Hypertension
�- Stable.� Continue losartan with holding parameters.
Chronic Lymphedema
�- Patient with chronic venous insufficiency and edema and maintained on loop diuretic x many years.
�- Continue current Lasix dose for now.
�- Check Echo as noted above.
�- Follow I/Os, daily weights, etc.
Morbid Obesity due to Excess Calories
�- Affects all aspects of care and specifically respiratory compromise.
�- Encourage efforts at healthy diet / exercise with goal of weight loss.
- Will need sleep apnea study upon discharge.
Hands and feet burning sensation-?neuropathy.
-Used to drink heavy in the past-10 beers a day. Currently not drinking
DVT Prophylaxis�-eliquis
Code Status:� Full
Anticipated Discharge: > 48 hours
Subjective/Interval History
-
Date of Service: October 06, 2023
Pt with increased oxygen requirement overnight
Oxygen requirement tend to go up daily sleeping
Denies any chest pain
States of productive cough.
Objective Data
-
Labs:
Laboratory Results
10/06/23
04:02
WBC 9.3
Hgb 13.9
Hct 40.7
Plt Count 188
Sodium 135
Potassium 5.1
Chloride 105
Carbon Dioxide 25
BUN 26 H
Creatinine 0.8
Glucose 152 H
Calcium 8.2 L
Vital Signs:
Vital Signs
Temp Pulse Resp BP Pulse Ox
97.3 F 88 20 122/73 97
10/06/23 07:47 10/06/23 07:47 10/06/23 07:47 10/06/23 07:47 10/06/23 07:47
I&O
10/05/23 10/06/23 10/07/23
06:59 06:59 06:59
Intake Total 320 / 320 1000 / 1000
Output Total 575 / 575
Balance 320 / 320 425 / 425
Physical Exam
-
General: Well Developed, No Apparent Distress and Morbidly Obese
HEENT: Normocephalic, Atraumatic, Moist Mucous Membranes and Oxygen (10L )
Respiratory: Rhonchi and Decreased Breath Sounds
Cardiac: S1/S2; Negative Murmur, Rub or Gallop
GI: Soft, Nontender, Nondistended and Normal Bowel Sounds; Negative Organomegaly
Rectal: Deferred by Provider
Musculoskeletal: No Clubbing, No Cyanosis, No Edema, Edema, Right Lower Extrem and Edema, Left Lower Extrem
Skin: Negative Rash
Neuro: Awake, Alert, Oriented, AO x 3, No Motor Deficits and Nonfocal/Grossly Intact
Psych: Calm
Data Reviewed
-
Total Time Spent with Patient (in minutes): 55
[2023-10-06 11:20] VITALS: BP 112/67
[2023-10-06] MEDS: SYMBICORT 160/4.5 MCG INHALER 2 PUFF INH (18:01)
[2023-10-06 19:27] VITALS: BP 130/68
[2023-10-06 23:11] VITALS: BP 133/80
[2023-10-07 03:26] VITALS: BP 121/73
--- NOTE | 2023-10-07 03:49 | DOWNTIME ---
There was a [employer] Sales Representative Downtime on 10/07/2023 from 0100 to 10/07/2023 at 0322. Downtime documentation of patient's care, including medication administrations, has been reconciled in the electronic record per guidelines. Refer to the
patient's paper chart under the miscellaneous tab to see printed paper medication records and downtime forms.
[2023-10-07 04:54] LABS: % Basophils 0.1 % (0-2); % Immature Granulocytes 0.7 % (0-0.5); % Lymphocytes 9.2 % (20.5-51.1); % Monocytes 3.2 % (1.7-9.3); % Neutrophils 86.8 % (42.2-75.2); Absolute Immature Granulocytes 0.1 10^3/uL (0-0.05); Absolute Lymphocytes 1.1 10^3/uL (1.2-3.4); Absolute Monocytes 0.4 10^3/uL (0.1-0.6); Absolute Neutrophils 10.7 10^3/uL (1.4-6.5); Hematocrit 42.6 % (39.0-52.0); Hemoglobin 14.3 g/dL (13.0-18.0); Mean Corp Hgb Conc. 33.6 g/dL (33.0-37.0); Mean Corpuscular Hgb 30.7 pg (27.0-31.0); Mean Corpuscular Volume 91.4 fL (80.0-94.0); Mean Platelet Volume 10.3 fL (7.4-10.4); Nucleated Red Blood Cells % 0 % (-); Platelet Count 218 10^3/uL (130-400); Red Blood Cell Count 4.66 10^6/uL (4.70-6.10); Red Cell Dist. Width 14.6 % (11.5-14.5); White Blood Cell Count 12.3 10^3/uL (4.8-10.8)
[2023-10-07 05:33] LABS: Blood Urea Nitrogen 29 mg/dl (9-20); Calcium 8.3 mg/dl (8.4-10.2); Carbon Dioxide 26 mmol/L (22-30); Chloride 102 mmol/L (98-107); Estimated Creatinine Clearance > 125 ml/min; Glucose 145 mg/dl (70-99); Potassium 4.9 mmol/L (3.5-5.1); Sodium 136 mmol/L (135-145); eGFR > 60.00
[2023-10-07 05:52] VITALS: BMI 46.8
[2023-10-07 06:00] VITALS: BMI 46.8
[2023-10-07 07:34] VITALS: BP 136/84
[2023-10-07] MEDS: MUCINEX 1200 MG PO ×2 (07:54→19:59)
[2023-10-07] MEDS: LASIX 20 MG PO ×2 (07:54→19:59)
[2023-10-07] MEDS: COZAAR 100 MG PO (07:54)
[2023-10-07] MEDS: TAMIFLU 75 MG PO ×2 (07:54→20:00)
[2023-10-07] MEDS: ELIQUIS 5 MG PO ×2 (07:55→19:59)
[2023-10-07] MEDS: REFRESH EYE DROPS (PF) 1 DROPS OPHTH ×2 (07:55→19:59)
[2023-10-07] MEDS: DESENEX/MITRAZOL/ZEASORB 1 APPLIC TOPICAL ×2 (07:55→19:59)
[2023-10-07] MEDS: DECADRON 4 MG IV (07:55)
[2023-10-07] MEDS: SYMBICORT 160/4.5 MCG INHALER 2 PUFF INH ×2 (07:59→20:10)
[2023-10-07] MEDS: SPIRIVA RESPIMAT 2.5 MCG 2 PUFF INH (07:59)
--- NOTE | 2023-10-07 09:53 | W.PN.PUL3 ---
Today's Communication / Plan
-
Feeling better, will transition IV steroids to PO
Continue inhalers at discharge
Home o2 eval
Outpatient pulmonary FU recommended, reviewed with patient
Discharge planning per team
Assessment
-
Patient is a 77 year old M with PMH significant for COPD, morbid obesity and hypertension who presents to ED complaining of cough, fatigue, SOB, generalized malaise and body aches.� Patient states that he was recently on a cruise to [place] (out
of [facility]).� He developed cough and cold symptoms about 3 days ago.� COVID testing negative. Has needed up to 5L on admission, no prior history of O2 use at home. We are consulted for eval.
Acute hypoxic respiratory failure
Possible URI given body aches/malaise/fatigue
AECOPD suspected
Suspected JESSICA, undiagnosed/untreated
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
COPD-severe
FEV1 1.53L 45%, ratio 62 /
Hypertension� �
HLD
Tobacco use-- up to 3 PPD for 50 years, quit 9 years ago
Morbid Obesity, BMI 46.9
Bilateral edema of lower extremity/chronic lymphedema
History of LE cellulitis
Tear of meniscus of left knee
Cataracts� �
Impaired fasting glucose
Plan
Hypoxemia noted on arrival, placed on 5L NC, weaned down to 3L NC
Has required O2 since admission, no prior history of use.
Home O2 eval eventually
Prior history of lung disease is noted including COPD, former smoker
Was told he has COPD in past, no PFTs for review. Has never seen pulmonary.
AECOPD suspected, placed on IV steroids
Obtain baseline PFT, bedside long
Showing severe obstruction, we reviewed this
Will start inhalers/education to continue as OP
Can obtain 6MWT to eval O2 needs
O2 marysol 89%, placed on 2L only due to dyspnea score 7/10 out of proportion to sat/HR, indicating severe deconditioning
This was reviewed with patient, he admits he is very sedentary
CXR obtained indicating NAD
Other imaging reviewed--CT with mosaicism, likely underlying OLD
No emphysema noted, will need full PFT as OP
COPD education
Continue maintenance inhalers upon discharge as well
Repeat ECHO results pending, prior test reviewed with stable function
proBNP neg on admission
Chronic LE edema is noted, on lasix as OP
Will need outpatient pulmonary evaluation in our office for PFTs and 6MWT
Reviewed with patient
feels he may have sleep apnea, +snoring/apneas.
Risk factors assessed for underlying sleep disordered breathing also noted, recommend outpatient PSG/sleep evaluation
Smoking history noted--150 pack years, quit 9 years ago
Continued smoking cessation
Will need yearly LDCT, CT obtained this year negative, next due 2024
Weight loss measures recommended
Obesity contributing to respiratory symptoms
PT/OT, needs OOB/ambulation
Diagnostic Data
Chest X-Ray: 10/04/23- Mild cardiomegaly. No acute pulmonary process.
CT Scan: CHEST 10/05/23- 1. No evidence of pulmonary embolism or thoracic aortic dissection.
2. Scattered foci of groundglass opacity and mosaic perfusion bilaterally, most suggestive of atypical infection/inflammation.
3. Mild ossification of the proximal LAD. Please correlate with symptoms of and risk factors for coronary artery disease, with further workup as clinically appropriate.
Echo: 03/17/18- Normal left ventricular chamber size. Normal left ventricular systolic�function. Left ventricular ejection fraction is 50-55%.�Moderate concentric left ventricular hypertrophy (1.5 cm).�No significant valvular disease.
Otherwise normal.�Compared to previous echo� 11/03/14 there is no significant change.
PFT's: Long 10/05/23- FEV1 1.53L 45%, ratio 62--severe obstruction
Reports and relevant images were personally reviewed.
Subjective Data
-
Date of Service:
Date of Service: October 07, 2023
Chief Complaint: Pulmonary Follow Up
Subjective:
Better this AM
Subj and obj appears less SOB
Objective Data
Data Reviewed
Vital Signs / I&O / Oxygen:
Vital Signs
Temp Pulse Resp BP Pulse Ox
97.2 F 80 16 136/84 96
10/07/23 07:34 10/07/23 08:32 10/07/23 08:32 10/07/23 07:54 10/07/23 08:32
Intake and Output
10/06/23 10/07/23 10/08/23
06:59 06:59 06:59
Intake Total 1000 / 1000 940 / 940
Output Total 575 / 575
Balance 425 / 425 940 / 940
SaO2 96
Nasal Cannula flow liters per 5
minute
Physical Exam
General: Comfortable and Other (NAD, obese)
HEENT: Normocephalic, Anicteric and Moist Mucous Membranes
Cardiovascular: S1-S2 and Regular Rhythm
Respiratory: Wheeze (slight) and Non-Labored Respirations
GI: Soft, Distended (obese/protuberant), Non Tender and Normal Bowel Sounds
Neurology: Awake, Alert, Oriented, AO x 3 and No Motor Deficits
Skin: Warm, Dry and Good Color
Labs/Micro/Reports
Lab Data
10/07/23 04:03
10/07/23 04:03
Microbiology
10/05/23 15:48 Urine Legionella Urinary Antigen - Final
Negative for Legionella pneumophila Serogroup 1 antigen.
A negative result does not rule out the possiblity of
Legionella infection due to other serogroups or species of
Legionella. Clinical correlation is recommended.
10/05/23 15:48 Urine Streptococcus pneumoniae Antigen (M - Final
Negative for Streptococcus pneumoniae antigen.
A negative result does not exclude infection with
Streptococcus pneumoniae. Clinical correlation is
recommended.
10/04/23 22:38 Nasal Swab Influenza Types A & B (ELMER) - Final
Influenza A Positive, NAAT
--- NOTE | 2023-10-07 09:58 | W.PN.HOSP.TC ---
Today's Communication/Plan
-
wean o2
iv steroids
eliquis
oob
pulm recs
Assessment / Plan
Assessment / Plan
A/P:� Patient is a 77y M with PMH significant for morbid obesity, HTN and COPD who presents to ED complaining of cough and SOB.
Influenza A Pneumonia
Acute Hypoxemic Respiratory failure secondary to the above
�- Patient with positive Flu A assay here in the ED, recent cruise and 3 days of symptoms.
�- Oxygen saturations at the time of my examination were 85% on room air
�- Tamiflu 75mg BID.
�- Patient did receive his seasonal vaccination.
�- Follow proper precautions.
�- Treat associated COPD as noted below.
�- Follow for clinical improvement.
- CT chest negative for pulmonary embolism. Scattered foci of groundglass opacity and mosaic perfusion bilaterally, most suggestive of atypical infection/inflammation. Mild ossification of the proximal LAD. Please correlate with symptoms of and
risk factors for coronary artery disease, with further workup as clinically appropriate.
-Pro-Francisco negative. Urine strep and Legionella antigen negative. Check sputum sample pending.
- Appreciate pulmonary input
COPD with Acute Exacerbation secondary to the above
�- Patient with hypoxemia, expiratory wheezing and cough.
�- History of COPD and reviewed that this is not resolved after he quit smoking.
�- Not on any daily / maintenance medications.
�- IV steroids for now and taper / transition to oral regimen as symptoms improve.
�- Started on symbicort and spirvia per pulm
- Home o2 eval prior to dc. If doesnt qualify will need nocturnal O2 assessment.
- Needs outpatient sleep study.
Atrial Fibrillation - New
�- Patient with no prior history of A-Fib.
�- ? if this is secondary to acute illness + use of phenylephrine for his cold symptoms.
�- Hold further phenylephrine.
�- Monitor on telemetry.� Current rate controlled off of chronotropic meds.
�- Begin Eliquis BID for stroke risk reductions / DVT prevention / etc.
�- Cardiology evaluation given new diagnosis.
�-Echo with EF 55 to 60% with diastolic function indeterminate. Severely dilated left and right atrium. Right ventricular hypokinesis.
Benign Hypertension
�- Stable.� Continue losartan with holding parameters.
Chronic Lymphedema
�- Patient with chronic venous insufficiency and edema and maintained on loop diuretic x many years.
�- Continue current Lasix dose for now.
�- Check Echo as noted above.
�- Follow I/Os, daily weights, etc.
Morbid Obesity due to Excess Calories
�- Affects all aspects of care and specifically respiratory compromise.
�- Encourage efforts at healthy diet / exercise with goal of weight loss.
- Will need sleep apnea study upon discharge.
Hands and feet burning sensation-?neuropathy.
-Used to drink heavy in the past-10 beers a day. Currently not drinking
DVT Prophylaxis�-eliquis
Code Status:� Full
Anticipated Discharge: > 48 hours
Subjective/Interval History
-
Date of Service: October 07, 2023
Overnight required 5L from 3L during daytime
states feeling better
Objective Data
-
Labs:
Laboratory Results
10/07/23
04:03
WBC 12.3 H
Hgb 14.3
Hct 42.6
Plt Count 218
Sodium 136
Potassium 4.9
Chloride 102
Carbon Dioxide 26
BUN 29 H
Creatinine 0.7
Glucose 145 H
Calcium 8.3 L
Vital Signs:
Vital Signs
Temp Pulse Resp BP Pulse Ox
97.2 F 80 16 136/84 96
10/07/23 07:34 10/07/23 08:32 10/07/23 08:32 10/07/23 07:54 10/07/23 08:32
I&O
10/06/23 10/07/23 10/08/23
06:59 06:59 06:59
Intake Total 1000 / 1000 940 / 940
Output Total 575 / 575
Balance 425 / 425 940 / 940
Physical Exam
-
General: Well Developed, No Apparent Distress and Morbidly Obese
HEENT: Normocephalic, Atraumatic, Moist Mucous Membranes and Oxygen (3L )
Respiratory: Rhonchi and Decreased Breath Sounds
Cardiac: S1/S2; Negative Murmur, Rub or Gallop
GI: Soft, Nontender, Nondistended and Normal Bowel Sounds; Negative Organomegaly
Rectal: Deferred by Provider
Musculoskeletal: No Clubbing, No Cyanosis, No Edema, Edema, Right Lower Extrem and Edema, Left Lower Extrem
Skin: Negative Rash
Neuro: Awake, Alert, Oriented, AO x 3, No Motor Deficits and Nonfocal/Grossly Intact
Psych: Calm
--- NOTE | 2023-10-07 10:03 | W.PN.CARDCBS ---
Addendum entered and electronically signed by Jose Antonio Church MD 10/07/23 11:16:
I saw and examined the patient.
The IMMIGRATION CONSULTANT or PA's note was reviewed and I agree with the note.
Comment: General: Well developed, well nourished in NAD.
Neck: Supple, no JVD, HJR, carotids +2 B/L, no bruits bilaterally.
Heart: Non displaced PMI, Irreg, no murmurs, No S3, S4, no rubs.
Lungs: scattered rhonchi
Extremities: No clubbing, cyanosis or edema bilaterally.
Neuro: Grossly nonfocal, awake, alert and oriented x3.
Stable cardiology status for discharge. Will consider outpatient cardioversion when seen in office. He remains on oxygen.
will sign off, call with questions
Original Note:
Today's Communication / Plan
-
in rate controlled afib
continue eliquis
consider for OP CV
OP cardiac follow up arranged
Impression / Plan
-
PCP: Blaise Lizarraga PA-C
Payroll Assistant: Dr. Church, last seen in 2015
Impression:
Presented with SOB
Influenza A
COPD w/ acute exacerbation
Atrial fibrillation - new diagnosis of unknown duration
HTN
HLD
COPD
Lymphedema
Spinal stenosis
Echo 03/17/2018: EF 50-55%, moderate cLVH, no significant valvular disease
Echo 10/05/2023: EF 55-60%, dilated atrium, RV dilated with RV hypokinesis
Plan:
-HRs in afib, controlled off AV umang blocking agents. plan for continued rate control at this time.
-continue eliquis 5mg BID. of note, per CM 'Eliquis 5mg BID x 60 tabs is $467.68. Patient has been given an Eliquis coupon for 1 month that can be used with his Medicare. Patient and have a [facility] med plan but it is for Catastrophic use.' will
reeval as OP
-continue treatment of COPD/flu.
-consider for OP CV
-echo with preserved EF
-continue OP lasix for lymphedema. continue OP losartan for HTN.
-consider for sleep study as OP
-OP cardiac follow up arranged
-d/w hospitalist
HPI: Enrique is a 77 year old male with PMH of HTN, HLD, COPD, lymphedema, and spinal stenosis who presented to [facility] for evaluation of SOB. He was recently on a cruise and returned home yesterday. He states while getting off the cruise and back to
his car, he started to notice he felt more SOB and dizzy with exertion. When he got home he was exhausted and went to bed, but states he could not sleep and continued to feel short of breath, prompting him to call EMS. He was brought to [facility] where
he tested positive for influenza A. He was started on tamiflu as well as IV steroids and nebs. He was hypoxic and placed on 4L NC which he remains on at this time. EKG on arrival showed he was in rate controlled atrial fibrillation. He reports no
prior diagnosis of afib and denies any palpitations. He was admitted for further treatment and evaluation and cardiology was consulted for new afib. He reports he is feeling well this morning and denies any SOB while on supplemental O2, sitting up
in bed eating breakfast.
Progress Note - Payroll Assistant
Subjective
Date of Service: October 07, 2023
no issues overnight noted
Objective
Labs:
10/07/23 04:03
10/07/23 04:03
Labs
Hgb 14.3 g/dL (13.0-18.0) 10/07/23 04:03
Hct 42.6 % (39.0-52.0) 10/07/23 04:03
Plt Count 218 10^3/uL (130-400) 10/07/23 04:03
Sodium 136 mmol/L (135-145) 10/07/23 04:03
Potassium 4.9 mmol/L (3.5-5.1) 10/07/23 04:03
BUN 29 mg/dl (9-20) H 10/07/23 04:03
Creatinine 0.7 mg/dL (0.7-1.3) 10/07/23 04:03
Glucose 145 mg/dl (70-99) H 10/07/23 04:03
Troponins
10/04/23 10/05/23 10/05/23
22:38 02:07 07:40
Troponin I < 0.012 < 0.012 Cancelled
10/05/23 10/05/23
08:36 13:50
Troponin I < 0.012 Cancelled
Vital Signs and I&O:
Vital Signs
Temp Pulse Resp BP Pulse Ox
97.2 F 80 16 136/84 96
10/07/23 07:34 10/07/23 08:32 10/07/23 08:32 10/07/23 07:54 10/07/23 08:32
Vital Signs
Temp Pulse Resp BP Pulse Ox
97.2 F 80 16 136/84 96
10/07/23 07:34 10/07/23 08:32 10/07/23 08:32 10/07/23 07:54 10/07/23 08:32
Intake & Output
10/05/23 10/06/23 10/07/23 10/08/23
07:59 07:59 07:59 07:59
Intake Total 320 / 320 1000 / 1000 940 / 940
Output Total 575 / 575
Balance 320 / 320 425 / 425 940 / 940
[2023-10-07 12:06] VITALS: BP 125/87
--- NOTE | 2023-10-07 13:29 | CM ---
DISCHARGE PLAN OF CARE: HOME WITH NO NEEDS.
[2023-10-07 15:40] VITALS: BP 136/78
[2023-10-07] MEDS: OCEAN, SALINE MIST 50 SPRAYS NASAL (17:29)
[2023-10-07 19:20] VITALS: BP 133/81
[2023-10-07 22:49] VITALS: BP 128/66
[2023-10-08 02:57] VITALS: BP 128/85
[2023-10-08 05:33] VITALS: BMI 46.6
[2023-10-08 06:47] LABS: Blood Urea Nitrogen 32 mg/dl (9-20); Calcium 8.2 mg/dl (8.4-10.2); Carbon Dioxide 29 mmol/L (22-30); Chloride 101 mmol/L (98-107); Estimated Creatinine Clearance > 125 ml/min; Glucose 129 mg/dl (70-99); Potassium 4.5 mmol/L (3.5-5.1); Sodium 137 mmol/L (135-145); eGFR > 60.00
[2023-10-08 07:15] VITALS: BP 137/81
[2023-10-08] MEDS: SYMBICORT 160/4.5 MCG INHALER 2 PUFF INH ×2 (07:49→20:33)
[2023-10-08] MEDS: SPIRIVA RESPIMAT 2.5 MCG 2 PUFF INH (07:49)
[2023-10-08] MEDS: REFRESH EYE DROPS (PF) 1 DROPS OPHTH ×2 (08:17→20:12)
[2023-10-08] MEDS: MUCINEX 1200 MG PO ×2 (08:17→20:11)
[2023-10-08] MEDS: DELTASONE 50 MG PO (08:17)
[2023-10-08] MEDS: TAMIFLU 75 MG PO ×2 (08:17→20:12)
[2023-10-08] MEDS: ELIQUIS 5 MG PO ×2 (08:17→20:11)
[2023-10-08] MEDS: LASIX 20 MG PO ×2 (08:17→20:11)
[2023-10-08] MEDS: COZAAR 100 MG PO (08:18)
[2023-10-08] MEDS: DESENEX/MITRAZOL/ZEASORB 1 APPLIC TOPICAL ×2 (08:18→20:12)
[2023-10-08 11:00] VITALS: BP 126/84
--- NOTE | 2023-10-08 11:33 | W.PN.HOSP.TC ---
Today's Communication/Plan
-
BC
Po steroids
home o2 eval
nocturnal o2 (requirement usually goes up due to JESSICA/?OHSA)
Start dispo
Assessment / Plan
Assessment / Plan
A/P:� Patient is a 77y M with PMH significant for morbid obesity, HTN and COPD who presents to ED complaining of cough and SOB.
Influenza A Pneumonia
Acute Hypoxemic Respiratory failure secondary to the above
�- Patient with positive Flu A assay here in the ED, recent cruise and 3 days of symptoms.
�- Oxygen saturations at the time of my examination were 85% on room air
�- Tamiflu 75mg BID complete course.
�- Patient did receive his seasonal vaccination.
�- Follow proper precautions.
�- Treat associated COPD as noted below.
�- Follow for clinical improvement.
- CT chest negative for pulmonary embolism. Scattered foci of groundglass opacity and mosaic perfusion bilaterally, most suggestive of atypical infection/inflammation. Mild ossification of the proximal LAD. Please correlate with symptoms of and
risk factors for coronary artery disease, with further workup as clinically appropriate.
-Pro-Francisco negative. Urine strep and Legionella antigen negative. Check sputum sample pending.
- Home O2 eval. Will need nocturnal O2 study too as seems o2 requirement trend up at night time.
- Appreciate pulmonary input
COPD with Acute Exacerbation secondary to the above
�- Patient with hypoxemia, expiratory wheezing and cough.
�- History of COPD and reviewed that this is not resolved after he quit smoking.
�- Not on any daily / maintenance medications.
�- IV steroids for now and taper / transition to oral regimen as symptoms improve.
�- Started on symbicort and spirvia per pulm
- Transitioned to po steroids. slow taper off.
- Home o2 eval prior to dc. If doesnt qualify will need nocturnal O2 assessment.
- Needs outpatient sleep study.
Atrial Fibrillation - New
�- Patient with no prior history of A-Fib.
�- ? if this is secondary to acute illness + use of phenylephrine for his cold symptoms.
�- Hold further phenylephrine.
�- Monitor on telemetry.� Current rate controlled off of chronotropic meds.
�- Begin Eliquis BID for stroke risk reductions / DVT prevention / etc.
�- Cardiology evaluation given new diagnosis.
�-Echo with EF 55 to 60% with diastolic function indeterminate. Severely dilated left and right atrium. Right ventricular hypokinesis.
Benign Hypertension
�- Stable.� Continue losartan with holding parameters.
Chronic Lymphedema
�- Patient with chronic venous insufficiency and edema and maintained on loop diuretic x many years.
�- Continue current Lasix dose for now.
�- Check Echo as noted above.
�- Follow I/Os, daily weights, etc.
Morbid Obesity due to Excess Calories
�- Affects all aspects of care and specifically respiratory compromise.
�- Encourage efforts at healthy diet / exercise with goal of weight loss.
- Will need sleep apnea study upon discharge.
Hands and feet burning sensation-?neuropathy.
-Used to drink heavy in the past-10 beers a day. Currently not drinking
DVT Prophylaxis�-eliquis
Code Status:� Full
Anticipated Discharge: Within 24 hours
Subjective/Interval History
-
Date of Service: October 08, 2023
on 1L oxygen currently
require more at nighttime
states breathing improved
Objective Data
-
Labs:
Laboratory Results
10/08/23
04:43
Sodium 137
Potassium 4.5
Chloride 101
Carbon Dioxide 29
BUN 32 H
Creatinine 0.7
Glucose 129 H
Calcium 8.2 L
Vital Signs:
Vital Signs
Temp Pulse Resp BP Pulse Ox
97.5 F 79 16 137/81 93
10/08/23 07:15 10/08/23 08:18 10/08/23 07:59 10/08/23 08:18 10/08/23 09:48
I&O
10/07/23 10/08/23 10/09/23
06:59 06:59 06:59
Intake Total 0 / 0 1739
Balance 0 1739
Physical Exam
-
General: Well Developed, No Apparent Distress and Morbidly Obese
HEENT: Normocephalic, Atraumatic, Moist Mucous Membranes and Oxygen (1L )
Respiratory: Rhonchi (improved ) and Decreased Breath Sounds
Cardiac: S1/S2; Negative Murmur, Rub or Gallop
GI: Soft, Nontender, Nondistended and Normal Bowel Sounds; Negative Organomegaly
Rectal: Deferred by Provider
Musculoskeletal: No Clubbing, No Cyanosis, No Edema, Edema, Right Lower Extrem and Edema, Left Lower Extrem
Skin: Negative Rash
Neuro: Awake, Alert, Oriented, AO x 3, No Motor Deficits and Nonfocal/Grossly Intact
Psych: Calm
--- NOTE | 2023-10-08 12:30 | W.PN.PUL3 ---
Today's Communication / Plan
-
Doing well, no new complaints
Prednisone taper at discharge
Home O2 eval
OP pulmonary FU
Discharge planning per team
Assessment
-
Patient is a 77 year old M with PMH significant for COPD, morbid obesity and hypertension who presents to ED complaining of cough, fatigue, SOB, generalized malaise and body aches.� Patient states that [place] was [place] (out
of [facility]).� He developed cough and cold symptoms about 3 days ago.� COVID testing negative. Has needed up to 5L on admission, no prior history of O2 use at home. We are consulted for eval.
Acute hypoxic respiratory failure
Possible URI given body aches/malaise/fatigue
AECOPD suspected
Suspected JESSICA, undiagnosed/untreated
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
COPD-severe
FEV1 1.53L 45%, ratio 62 10/05/23
Hypertension� �
HLD
Tobacco use-- up to 3 PPD for 50 years, quit 9 years ago
Morbid Obesity, BMI 46.9
Bilateral edema of lower extremity/chronic lymphedema
History of LE cellulitis
Tear of meniscus of left knee
Cataracts� �
Impaired fasting glucose
Plan
Hypoxemia noted on arrival, placed on 5L NC, weaned down to 3L NC
Has required O2 since admission, no prior history of use.
Home O2 eval eventually
Prior history of lung disease is noted including COPD, former smoker
Was told he has COPD in past, no PFTs for review. Has never seen pulmonary.
AECOPD suspected, placed on IV steroids/transitioned to PO steroids
Obtain baseline PFT, bedside reyna
Showing severe obstruction, we reviewed this
Will start inhalers/education to continue as OP
Can obtain 6MWT to eval O2 needs
O2 marysol 89%, placed on 2L only due to dyspnea score 7/10 out of proportion to sat/HR, indicating severe deconditioning
This was reviewed with patient, he admits he is very sedentary
CXR obtained indicating NAD
Other imaging reviewed--CT with mosaicism, likely underlying OLD
No emphysema noted, will need full PFT as OP
COPD education
Continue maintenance inhalers upon discharge as well
Repeat ECHO results pending, prior test reviewed with stable function
proBNP neg on admission
Chronic LE edema is noted, on lasix as OP
Will need outpatient pulmonary evaluation in our office for PFTs and 6MWT
Reviewed with patient
feels he may have sleep apnea, +snoring/apneas.
Risk factors assessed for underlying sleep disordered breathing also noted, recommend outpatient PSG/sleep evaluation
We reviewed this again
Smoking history noted--150 pack years, quit 9 years ago
Continued smoking cessation
Will need yearly LDCT, CT obtained this year negative, next due 2024
Weight loss measures recommended
Obesity contributing to respiratory symptoms
PT/OT, needs OOB/ambulation
Discharge planning per team
Diagnostic Data
Chest X-Ray: 10/04/23- Mild cardiomegaly. No acute pulmonary process.
CT Scan: CHEST 10/05/23- 1. No evidence of pulmonary embolism or thoracic aortic dissection.
2. Scattered foci of groundglass opacity and mosaic perfusion bilaterally, most suggestive of atypical infection/inflammation.
3. Mild ossification of the proximal LAD. Please correlate with symptoms of and risk factors for coronary artery disease, with further workup as clinically appropriate.
Echo: 03/17/18- Normal left ventricular chamber size. Normal left ventricular systolic�function. Left ventricular ejection fraction is 50-55%.�Moderate concentric left ventricular hypertrophy (1.5 cm).�No significant valvular disease.
Otherwise normal.�Compared to previous echo� 11/03/14 there is no significant change.
PFT's: Reyna 10/05/23- FEV1 1.53L 45%, ratio 62--severe obstruction
Reports and relevant images were personally reviewed.
Subjective Data
-
Date of Service:
Date of Service: October 08, 2023
Chief Complaint: Pulmonary Follow Up
Subjective:
patient seen, no new events on
no new complaints
Objective Data
Data Reviewed
Vital Signs / I&O / Oxygen:
Vital Signs
Temp Pulse Resp BP Pulse Ox
97.5 F 79 16 137/81 93
10/08/23 07:15 10/08/23 08:18 10/08/23 07:59 10/08/23 08:18 10/08/23 09:48
Intake and Output
10/07/23 10/08/23 10/09/23
06:59 06:59 06:59
Intake Total 940 / 940 1740 / 1740
Balance 940 / 940 1740 / 1740
SaO2 93
Nasal Cannula flow liters per 1
minute
Physical Exam
General: Comfortable and Other (NAD, obese)
HEENT: Normocephalic, Anicteric and Moist Mucous Membranes
Cardiovascular: S1-S2 and Regular Rhythm
Respiratory: Wheeze (slight) and Non-Labored Respirations
GI: Soft, Distended (obese/protuberant), Non Tender and Normal Bowel Sounds
Neurology: Awake, Alert, Oriented, AO x 3 and No Motor Deficits
Skin: Warm, Dry and Good Color
Labs/Micro/Reports
Lab Data
10/07/23 04:03
10/08/23 04:43
Microbiology
10/07/23 22:25 Sputum Gram Stain - Preliminary
10/05/23 15:48 Urine Legionella Urinary Antigen - Final
Negative for Legionella pneumophila Serogroup 1 antigen.
A negative result does not rule out the possiblity of
Legionella infection due to other serogroups or species of
Legionella. Clinical correlation is recommended.
10/05/23 15:48 Urine Streptococcus pneumoniae Antigen (M - Final
Negative for Streptococcus pneumoniae antigen.
A negative result does not exclude infection with
Streptococcus pneumoniae. Clinical correlation is
recommended.
--- NOTE | 2023-10-08 15:11 | CM ---
Discharge Plan of Care: Home with no additional skilled services. O2 walk eval completed. Does not meet criteria for home O2 during the day. 94% at rest, 92% ambulating 250 feet. NEEDS NOCTURNAL O2 TEST prior to discharge.
[2023-10-08 15:50] VITALS: BP 139/84
[2023-10-08 19:50] VITALS: BP 136/81
[2023-10-08 23:39] VITALS: BP 134/73
[2023-10-09 03:15] VITALS: BP 135/91
[2023-10-09 05:44] VITALS: BMI 46.5
[2023-10-09 06:43] LABS: Blood Urea Nitrogen 33 mg/dl (9-20); Calcium 8.4 mg/dl (8.4-10.2); Carbon Dioxide 30 mmol/L (22-30); Chloride 103 mmol/L (98-107); Estimated Creatinine Clearance 122 ml/min; Glucose 107 mg/dl (70-99); Potassium 4.3 mmol/L (3.5-5.1); Sodium 134 mmol/L (135-145); eGFR > 60.00
[2023-10-09 07:06] VITALS: BP 145/92
[2023-10-09] MEDS: SYMBICORT 160/4.5 MCG INHALER 2 PUFF INH (07:34)
[2023-10-09] MEDS: SPIRIVA RESPIMAT 2.5 MCG 2 PUFF INH (07:34)
[2023-10-09] MEDS: LASIX 20 MG PO (08:29)
[2023-10-09] MEDS: DELTASONE 50 MG PO (08:30)
[2023-10-09] MEDS: COZAAR 100 MG PO (08:30)
[2023-10-09] MEDS: TAMIFLU 75 MG PO (08:30)
[2023-10-09] MEDS: MUCINEX 1200 MG PO (08:31)
[2023-10-09] MEDS: REFRESH EYE DROPS (PF) 1 DROPS OPHTH (08:31)
[2023-10-09] MEDS: ELIQUIS 5 MG PO (08:31)
--- NOTE | 2023-10-09 10:48 | W.PN.HOSP.TC ---
Addendum entered and electronically signed by Manjinder Whitney MD 10/09/23 14:33:
Patient [facility] Faxed Symbicort not covered. Alternative Breo prescription electronically sent
Original Note:
Today's Communication/Plan
-
BC
Eliquis
nocturnal o2
dc home
Assessment / Plan
Assessment / Plan
A/P:� Patient is a 77y M with PMH significant for morbid obesity, HTN and COPD who presents to ED complaining of cough and SOB.
Influenza A Pneumonia
Acute Hypoxemic Respiratory failure secondary to the above
�- Patient with positive Flu A assay here in the ED, recent cruise and 3 days of symptoms.
�- Oxygen saturations at the time of my examination were 85% on room air
�- Tamiflu 75mg BID completed course.
�- Patient did receive his seasonal vaccination.
�- Follow proper precautions.
�- Treat associated COPD as noted below.
�- Follow for clinical improvement.
- CT chest negative for pulmonary embolism. Scattered foci of groundglass opacity and mosaic perfusion bilaterally, most suggestive of atypical infection/inflammation. Mild ossification of the proximal LAD. Please correlate with symptoms of and
risk factors for coronary artery disease, with further workup as clinically appropriate.
-Pro-Francisco negative. Urine strep and Legionella antigen negative. Poor quality sputum sample.
- Did not qualify for home o2. Drop in nocturnal oxygen to lowest 58% saturation and would benefit from 2L oxygen at night time and daytime prn during sleep.
- Appreciate pulmonary input
COPD with Acute Exacerbation secondary to the above
�- Patient with hypoxemia, expiratory wheezing and cough.
�- History of COPD and reviewed that this is not resolved after he quit smoking.
�- Not on any daily / maintenance medications.
�- IV steroids for now and taper / transition to oral regimen as symptoms improve.
�- Started on symbicort and spirvia per pulm
- Transitioned to po steroids. slow taper off.
- Needs outpatient sleep study.
Atrial Fibrillation - New
�- Patient with no prior history of A-Fib.
�- ? if this is secondary to acute illness + use of phenylephrine for his cold symptoms.
�- Remains in afib but rate controlled-tele reviewed
�- Monitor on telemetry.� Current rate controlled off of chronotropic meds.
�- Started on Eliquis 5mg BID for stroke risk reductions / DVT prevention / etc.
�- Cardiology evaluation given new diagnosis.
�-Echo with EF 55 to 60% with diastolic function indeterminate. Severely dilated left and right atrium. Right ventricular hypokinesis.
Benign Hypertension
�- Stable.� Continue losartan with holding parameters.
Chronic Lymphedema
�- Patient with chronic venous insufficiency and edema and maintained on loop diuretic x many years.
�- Continue current Lasix dose for now.
�- Check Echo as noted above.
�- Follow I/Os, daily weights, etc.
Morbid Obesity due to Excess Calories
�- Affects all aspects of care and specifically respiratory compromise.
�- Encourage efforts at healthy diet / exercise with goal of weight loss.
- Will need sleep apnea study upon discharge.
Hands and feet burning sensation-?neuropathy.
-Used to drink heavy in the past-10 beers a day. Currently not drinking
DVT Prophylaxis�-eliquis
Code Status:� Full
More than 30 minutes spent in discharge including
Final examination of the patient
Summarizing hospital stay
Instructions for continuing care to all relevant caregivers
Preparation of discharge records, prescriptions, and referral forms
Total time spent (in minutes): 50
Anticipated Discharge: Today
Subjective/Interval History
-
Date of Service: October 09, 2023
States the bronchodilators helped her.
Objective Data
-
Labs:
Laboratory Results
10/09/23
04:54
Sodium 134 L
Potassium 4.3
Chloride 103
Carbon Dioxide 30
BUN 33 H
Creatinine 0.8
Glucose 107 H
Calcium 8.4
Vital Signs:
Vital Signs
Temp Pulse Resp BP Pulse Ox
97.6 F 82 16 135/91 97
10/09/23 07:06 10/09/23 08:29 10/09/23 07:42 10/09/23 08:29 10/09/23 07:42
I&O
10/08/23 10/09/23 10/10/23
06:59 06:59 06:59
Intake Total 1740 / 1740 0 / 1680
Balance 1740 / 1740 1680 / 1680
Physical Exam
-
General: Well Developed, No Apparent Distress and Morbidly Obese
HEENT: Normocephalic, Atraumatic and Moist Mucous Membranes
Respiratory: Rhonchi (improved ) and Decreased Breath Sounds
Cardiac: S1/S2; Negative Murmur, Rub or Gallop
GI: Soft, Nontender, Nondistended and Normal Bowel Sounds; Negative Organomegaly
Rectal: Deferred by Provider
Musculoskeletal: No Clubbing, No Cyanosis, No Edema, Edema, Right Lower Extrem and Edema, Left Lower Extrem
Skin: Negative Rash
Neuro: Awake, Alert, Oriented, AO x 3, No Motor Deficits and Nonfocal/Grossly Intact
Psych: Calm
--- NOTE | 2023-10-09 10:56 | W.DCSUMMARY ---
Discharge Summary
Discharge Data
Date of Admission: 10/05/23
Date of Discharge: 10/09/23
-
Pending Results: No
Hospital Course
77y M with PMH significant for morbid obesity, HTN and COPD who presents to ED complaining of cough and SOB. Positive influenza A pneumonia. Also acute hypoxic respiratory failure and COPD exacerbation. Patient with undiagnosed COPD. Patient
was advised however to transition to p.o. steroids on discharge. Patient completed course of Tamiflu. Patient also with new onset of A-fib and was started on Eliquis. Echo with EF 55 to 60% with diastolic function indeterminate. Severely dilated
left and right atrium. Right ventricular hypokinesis. CT chest negative for pulmonary embolism. Scattered foci of groundglass opacity and mosaic perfusion bilaterally, most suggestive of atypical infection/inflammation. Mild ossification of the
proximal LAD. Please correlate with symptoms of and risk factors for coronary artery disease, with further workup as clinically appropriate. Pulmonary and cardiology was consulted. Patient was able to wean off oxygen. Patient was started on
bronchodilators. Patient qualified for nocturnal oxygen case management was consulted for nocturnal oxygen set up to be completed. Patient with significant improvement in breathing. Recommend outpatient sleep study.
Discharge Plan
-
Patient Disposition: Home (Routine Discharge)
Discharge Diagnosis/Procedures: Influenza A pneumonia
Acute hypoxic respiratory failure
Acute COPD exacerbation
New onset atrial fibrillation
Condition: Fair
Diet: As tolerated and Low Fat
Activity: With assistance and As tolerated
Driving Restrictions: As prior to admission
Referrals:
Lyndsay Bowden PA-C [Specified Professional Personl] - 10/28/23 1:40 pm (You have a cardiology follow up appointment at the [facility]. Please call with questions. )
Malina Ramos, [Active] - (4-6 weeks, PFTs)
Blaise Lizarraga PA-C [Family Provider] -
Prescriptions:
New
Eliquis 5 mg Tablet
5 mg PO BID 30 Days Qty: 60 0RF
Spiriva Respimat 2.5 mcg/actuation Mist
2 puff inhalation R DAILY 30 Days Qty: 4 0RF
budesonide-formoterol [Symbicort] 160-4.5 mcg/actuation Hfa Aerosol Inhaler
2 puff inhalation R BID 30 Days Qty: 10.2 0RF
benzonatate 100 mg Capsule
200 mg PO TIDPRN PRN (Reason: Cough) Qty: 20 0RF
prednisone 10 mg Tablet
See Rx Instructions .ROUTE .COMPLEX Qty: 45 0RF
Rx Instructions:
Take By Mouth:
50 mg daily x3 days, 40 mg daily x3 days,
30 mg daily x3 days, 20 mg daily x3 days,
10 mg daily x3 days
Continued
furosemide 20 MG tablet
20 mg PO BID
losartan 50 MG tablet
100 mg PO DAILY
Discontinued
Contac Cold-Flu Day 5-500 mg Tablet
2 tab PO Q4H
Discharge Orders:
Discharge Patient (As Directed); Ordered 10/09/23
Ordered By: Manjinder Whitney
Discharge Date and Time
Discharge Date/Time: 10/09/23 12:30
Print Language: [place]
[2023-10-09 11:07] VITALS: BP 143/89
[2023-10-09] MEDS: DESENEX/MITRAZOL/ZEASORB TOPICAL (11:42)
--- NOTE | 2023-10-09 15:29 | CM ---
Patient has been medically cleared for discharge to home with nocturnal O2 with [employer]. O2 concentrator to be delivered today. transported home.
== END 2023-10-09 12:30 | disposition home or self-care (01) | DRG 193 ==
LOC: 2 NORTH 00:57
PROVIDERS: ADMITTING PHYSICIAN Hospitalist; ATTENDING PHYSICIAN Hospitalist; CONSULT PHYSICIAN Internal Medicine; CONSULT PHYSICIAN Internal Medicine Cardiovascular Disease; EMERGENCY PHYSICIAN Emergency Medicine; FAMILY PHYSICIAN Physician Assistant Medical
DX: J10.01 Influenza due to other identified influenza virus with the same other identified influenza virus pneumonia (principal); J96.01 Acute respiratory failure with hypoxia; J44.1 Chronic obstructive pulmonary disease with (acute) exacerbation; Z68.42 Body mass index [BMI] 45.0-49.9, adult; E66.01 Morbid (severe) obesity due to excess calories; I48.91 Unspecified atrial fibrillation; I10 Essential (primary) hypertension
CPT/HCPCS: 71045; 71275; 80048; 80053; 83880; 84145; 84443; 84484; 85025; 85027; 87070; 87205; 87449; 87502; 87811; 87899; 93005; 93307; 94060; 94640; 94761; 94762; 96374; 97162; 97166; 99285; Q9957; Q9967

== ENCOUNTER → 2023-11-24 | Outpatient (REF) | payer MEDICARE, BC, SELFPAY | LOC: DHSLP | PROVIDERS: ATTENDING PHYSICIAN Internal Medicine; FAMILY PHYSICIAN Physician Assistant Medical | DX: G47.33 Obstructive sleep apnea (adult) (pediatric) (principal); R09.02 Hypoxemia | CPT/HCPCS: 95800 ==

== ENCOUNTER 2024-04-07 09:39 | Day surgery (SDC) | payer MEDICARE, BC, SELFPAY ==
--- NOTE | 2024-04-07 11:13 | ITS.CL.CARDI ---
Satellite Instruction Facilitator - Cardioversion
Cardioversion
Procedure Report:
Procedure: Direct current electrical cardioversion
Pre-operative diagnosis: Persistent atrial fibrillation
Post-operative diagnosis: Persistent atrial fibrillation status post DC cardioversion to sinus rhythm
Anesthesia: MAC
Attending Physician: Toney Edmond MD
Procedure Description: The patient was brought to the electrophysiology laboratory in the fasting state. Adherence to anticoagulation regimen was confirmed. Informed consent was obtained from the patient prior to the start of the procedure.
Electrodes were placed on the patient and connected to an external defibrillator. Monitoring of blood pressure, ECG tracings, and pulse oximetry was initiated. The pads were applied to the patient in the anterior and posterior positions. The patient
was sedated by the anesthesiologist. Initially 200 joule and subsequently 360 joule biphasic synchronized shocks were delivered to the patient under MAC anesthesia. Sinus rhythm was successfully restored. The patient recovered uneventfully from MAC
anesthesia. There were no immediate post-procedure complications. The patient left the lab in good condition. The attending physician was present throughout the entire procedure.
Impression: Successful direct current cardioversion with latter-day of sinus rhythm after 200 joule and subsequent 360 joule biphasic synchronized shocks.
[2024-04-07 11:33] VITALS: BMI 46.5
== END 2024-04-07 12:09 | disposition home or self-care (01) ==
LOC: CATH 09:39
PROVIDERS: ATTENDING PHYSICIAN Internal Medicine Cardiovascular Disease; FAMILY PHYSICIAN Physician Assistant Medical; OTHER PHYSICIAN Internal Medicine Cardiovascular Disease
DX: I48.19 Other persistent atrial fibrillation (principal); I45.10 Unspecified right bundle-branch block; I10 Essential (primary) hypertension; E78.5 Hyperlipidemia, unspecified; G47.33 Obstructive sleep apnea (adult) (pediatric); Z87.891 Personal history of nicotine dependence; Z79.01 Long term (current) use of anticoagulants
CPT/HCPCS: 92960; 93005

== ENCOUNTER → 2024-04-27 09:15 | Outpatient (REF) | payer MEDICARE, BC, SELFPAY | LOC: DHSLP 09:15 | PROVIDERS: ATTENDING PHYSICIAN Internal Medicine; FAMILY PHYSICIAN Physician Assistant Medical | DX: G47.33 Obstructive sleep apnea (adult) (pediatric) (principal); R09.02 Hypoxemia; G47.61 Periodic limb movement disorder | CPT/HCPCS: 95811 ==

== ENCOUNTER 2024-11-26 14:46 | Inpatient (IN) | payer MEDICARE, BC, SELFPAY ==
[2024-11-26] VITALS (17 sets, daily range): BP systolic 70–137; BP diastolic 47–78; PULSE 2–81; BMI 45.7
[2024-11-26 09:52] LABS: Hematocrit 37.8 % (39.0-52.0); Hemoglobin 13.3 g/dL (13.0-18.0); Mean Corp Hgb Conc. 35.2 g/dL (33.0-37.0); Mean Corpuscular Hgb 30.5 pg (27.0-31.0); Mean Corpuscular Volume 86.7 fL (80.0-94.0); Mean Platelet Volume 10.1 fL (7.4-10.4); Platelet Count 219 10^3/uL (130-400); Red Blood Cell Count 4.36 10^6/uL (4.70-6.10); White Blood Cell Count 24.1 10^3/uL (4.8-10.8)
[2024-11-26 10:13] LABS: ALT (SGPT) 25 U/L (0-50); AST (SGOT) 32 U/L (17-59); Albumin 3.6 g/dl (3.5-5.0); Alkaline Phosphatase 44 U/L (38-126); Blood Urea Nitrogen 26 mg/dl (9-20); Calcium 8.4 mg/dl (8.4-10.2); Carbon Dioxide 24 mmol/L (22-30); Chloride 106 mmol/L (98-107); Glucose 143 mg/dl (70-99); Potassium 3.6 mmol/L (3.5-5.1); Sodium 137 mmol/L (135-145); Total Bilirubin 0.8 mg/dl (0.2-1.3); Total Protein 6.5 g/dl (6.3-8.2); eGFR > 60.00
[2024-11-26 10:36] LABS: % Basophils 0.2 % (0-2); % Lymphocytes 3.6 % (20.5-51.1); % Monocytes 3.8 % (1.7-9.3); % Neutrophils 91.4 % (42.2-75.2); Absolute Basophils 0.1 10^3/uL (0-0.2); Absolute Immature Granulocytes 0.3 10^3/uL (0-0.05); Absolute Lymphocytes 0.9 10^3/uL (1.2-3.4); Absolute Monocytes 0.9 10^3/uL (0.1-0.6); Nucleated Red Blood Cells % 0 % (-)
--- NOTE | 2024-11-26 10:45 | ED.GENMED ---
History of Present Illness
General
Chief Complaint: Skin Problem
Time Seen by Provider: 11/26/24 10:45
History of Present Illness
History of Present Illness:
TIME OF INITIAL ENCOUNTER: 10:45 AM
HPI: The patient presents due to worsening right lower extremity cellulitic changes. On November 13, the patient accidentally struck his distal right alonso with a bolt. He was placed on cephalexin at urgent care. He then developed desquamation of the
skin to the palms however he continued the antibiotic. There was increasing concern for infection of the right lower extremity. He saw mangle roller who put him on mupirocin ointment. His redness continues to worsen. He also reports some degree
of shortness of breath. He is found to be in A-fib again and had 1 episode of A-fib in the past. He is on Eliquis.
EXAM:
GENERAL: Well appearing in no distress
HEENT: Moist oral mucosa
CARDIOVASCULAR: No murmurs, normal heart rate, slightly irregular rhythm, No chest wall tenderness
PULMONARY: No respiratory distress, breath sounds are clear and equal
ABDOMEN: Soft with no peritoneal signs, no tenderness
NEUROLOGIC: Good strength all extremities, no coordination deficits
PSYCHIATRIC: Appropriate mental status, normal insight and judgement
EXTREMITIES: Nontender, bilateral lower extremity edema, moves all extremities equally
SKIN: Marked erythema to the distal right lower extremity that extends above the knee, there is a 1 cm ulcerative lesion with purulent drainage to the distal anterior right alonso
NUMBER AND COMPLEXITY OF PROBLEMS ADDRESSED AT THE ENCOUNTER
� Chronic conditions affecting care: Former smoker with JESSICA uses BiPAP, high blood pressure, A-fib on Eliquis
� Acute Exacerbation and/or Progression of Chronic Illness: This is an acute problem
� Differential Diagnosis includes: Right lower extremity infection, sepsis, bacteremia, wound infection
AMOUNT AND/OR COMPLEXITY OF DATA TO BE REVIEWED AND ANALYZED
� I performed an independent evaluation of and my interpretation is:
EKG: A-fib, right bundle branch block
CT:
X-rays:
Laboratory Studies: White count 24.1 with left shift, chemistries unremarkable however the BUN is slightly elevated 26 lactic is normal,
Other:
� Review of other/old records: I reviewed records, the patient did have a cardioversion with Dr. Boateng and was shocked twice during the procedure
� Clinical information was obtained by an independent historian: I spoke to at bedside
� Prescriptions/Medications Considered but not given:
� Further testing considered but not performed:
RISK OF COMPLICATIONS AND/OR MORBIDITY OR MORTALITY OF PATIENT MANAGEMENT
� Social determinants of health affecting care: Lives at home
� Discussion with other providers: Hospitalist, Dr. Laird for admission
� Escalation of care including admission/observation vs risk of discharge considered: Will plan admission to the hospital as the patient's white count is 24,000. He reportedly had a fever of last night of 101 Fahrenheit. He
does have recurrence of A-fib and at request of family I did notify Dr. Lawrence patient is known to Dr. Church.
ANY OTHER UPDATES:
There was some questionable readings of low blood pressures�he was given 1 L of IV fluid. He remained asymptomatic from a low blood pressure standpoint.
Past History
Past History
ED Past Medical History: HTN, Other (morbid obesity) and Other (OA, B LE lymphedema)
ED Past Surgical History: Other (rectal/anal fissure surgery)
Social History
Tobacco: Former smoker
Alcohol: Occasional
Drug: None
Personal:
Living: with family
Employment: Retired
Family History
Family History: Other (Noncontributory)
Phy Exam
Physical Exam
Physical Exam:
See HPI
Course
Orders/Labs/Results
Orders:
Orders
11/26/24 09:36
ECG [Electrocardiogram (*1)] Urgent
Reason for Study: Shortness of Breath
EKG- Treatment ONCE
11/26/24 09:40
Complete Blood Count/With Diff Urgent
Comprehensive Metabolic Panel Urgent
11/26/24 11:04
Piperacillin/Tazo 3.375 Gram [Zosyn] 3.375 gram in 50 ml IV NOW
11/26/24 11:05
Vancomycin [Vancocin] 2,000 mg 0.9% Sodium Chloride 500 ml [Nss] 500 ml IV NOW
11/26/24 11:37
Lactic Acid Q4H
Comment: CANCEL 2nd LACTIC ACID IF 1st LACTIC ACID IS LESS THAN 2
Blood Culture Q30M
SAAD Source: Blood/Venous
Specimen Description:
Blood Culture Q30M
SAAD Source: Blood/Venous
Specimen Description:
Wound Culture [Wound/Abscess/Other Culture] Urgent
SAAD Source: Ulcer
Specimen Description:
Date Specimen was Collected: 11/26/24
Time Specimen was Collected: 11:26
11/26/24 11:43
0.9% Sodium Chloride 1000 ml [Nss] 1,000 ml IV BOLUS
11/26/24 14:19
Consult Surgery [SURGICAL CONSULT] Routine
Consulting Provider: Ezio Toscano
Was physician already notified: Yes
Reason for consult: LLE wound
INFECTIOUS DISEASE CONSULT Routine
Consulting Provider: Karine Smith
Was physician already notified: Yes
Reason for consult: LLE cellulitis
Linezolid [Zyvox] 600 mg PO NOW STA
Piperacillin/Tazo 4.5 Gram [Zosyn] 4.5 gram in 100 ml IV NOW
11/26/24 14:28
Admit/Transfer Patient As Directed
Co-Sign Provider:
Level of Care: Inpatient admission
Assign to:: IMU- Intermediate Care
Physician / Group: Moy
Diagnosis: severe sepsis due to LLE cellulitis
Reason for Hospitalization: severe sepsis due to LLE cellulitis
Expected length of stay greater than two midnights?: Yes
ELOS- Estimated Length of Stay in days: 5
I certify the patient meets the requirements for IP care: Yes
11/26/24 14:29
Lower Ext Right w Contrast CT [CT Lower Ext W/iv Cont Rt] Routine
Comment:
Reason For Exam: persistent alonso wound after injury on 11/13
Code Status As Directed
Resuscitation Status: Full Code
PRN Pain Medication Management As Directed
May give lesser potent ordered pain med per pt: Yes
preference::
Protocol:: Medication orders for pain may be administered in a
manner that supports deferring to patient preference
when the pt is:
- Requesting an ordered lesser potent pain medication.
Least to most potent pain medications are defined
as: acetaminophen < NSAID < tramadol < opioids
(morphine, oxycodone, hydromorphone).
- Requesting a lesser dose of the same medication IF
ORDERED.
- Requesting a less intrusive route of administration
if both routes are prescribed by the provider (PO <
IV).
11/26/24 16:00
Meropenem [Merrem] 2,000 mg 0.9% Sodium Chloride 100 ml [Nss] 60 ml IV Q8H
Abnormal Lab Results
11/26/24
09:40
WBC 24.1 H 10^3/uL
(4.8-10.8)
RBC 4.36 L 10^6/uL
(4.70-6.10)
Hct 37.8 L %
(39.0-52.0)
Abs Immat Gran (auto) 0.3 H 10^3/uL
(0-0.05)
Absolute Neuts (auto) 22.0 H 10^3/uL
(1.4-6.5)
Absolute Lymphs (auto) 0.9 L 10^3/uL
(1.2-3.4)
Absolute Monos (auto) 0.9 H 10^3/uL
(0.1-0.6)
Immature Gran % 1.0 H %
(0-0.5)
Neutrophils % 91.4 H %
(42.2-75.2)
Lymphocytes % 3.6 L %
(20.5-51.1)
BUN 26 H mg/dl
(9-20)
Glucose 143 H mg/dl
(70-99)
11/26/24 09:40
11/26/24 09:40
Vital Signs
Initial and Last Documented VS:
Initial Vital Signs
Temp Pulse Resp BP Pulse Ox
37.3 C 66 18 113/55 96
11/26/24 09:31 11/26/24 09:31 11/26/24 09:31 11/26/24 09:31 11/26/24 09:31
Last Documented Vital Signs
Temp Pulse Resp BP Pulse Ox
37.3 C 72 27 113/55 97
11/26/24 09:31 11/26/24 11:15 11/26/24 11:15 11/26/24 09:31 11/26/24 11:28
*Critical Care Note
Total Time (30-74mins, 75-104mins- exclusive of procedures): Not Applicable
ED Attending Note
-
Portions of this chart may have been created with voice recognition software.� Occasional wrong word or��sound alike� substitutions may have occurred due to the inherent limitations of voice recognition software.
Discharge Plan
Departure
Patient Disposition: Admit
Date of Disposition: 11/26/24
Time of Disposition: 11:20
Presentation/result/management discussed w/ accepting MD/DO: Hospitalist
Discharge Problem:
Cellulitis
Interventions
Interventions:
*Risk Screen - Suicide Last Done: 11/26/24 09:31
*General Assessment Last Done: 11/26/24 09:31
*Neglect/Abuse Screening Last Done: 11/26/24 11:28
*ED- Fall Risk Assessment Last Done: 11/26/24 11:28
*ED COVID-19 Vaccine History Last Done: 11/26/24 11:28
ED-Skin Assessment Last Done: 11/26/24 11:28
[2024-11-26] MEDS: NSS 1000 IV ×3 (11:57→20:45)
[2024-11-26] MEDS: ZOSYN 50 IV ×3 (12:02→23:58)
[2024-11-26 12:03] LABS: Lactic Acid 1.6 mmol/L (0.7-2.0)
[2024-11-26] MEDS: VANCOCIN 540 MG IV (12:57)
--- NOTE | 2024-11-26 13:56 | HPS.HSE ---
Addendum entered and electronically signed by Venkat Winter MD 11/26/24 15:00:
Correction to physical exam:
R hand with skin desquamation
RUE with macular rash consistent with allergic rxn to Vanco
Original Note:
Family Physician
-
Family Physician: Blaise Lizarraga
Chief Complaint
-
RLE cellulitis
History of Present Illness
79 y/o M with PMHx:
COPD
Essential hypertension
Chronic lymphedema
Morbid obesity due to excess calories, BMI 45.7
Neuropathy
Atrial fibrillation, unknown type
who p/w right lower extremity cellulitis. On 11/13/24 the patient had trauma to his distal right alonso due to hitting a bolt. He went to urgent care and was placed on Keflex for right lower extremity cellulitis. He did have desquamation of the skin
on his palms but he continues to take Keflex nonetheless. He saw formstone fitter this is cellulitic changes were not improving. He was placed on mupirocin ointment. He reports 101 F fever yesterday. Reports some shortness of breath associated with
when he goes into atrial fibrillation.
Medical History
Past Medical History
Past Medical History: Reports Other (as per HPI)
Past Surgical History: Reports Other (N/A)
Social History
Tobacco: Former Smoker
Alcohol: None
Drug: None
Family History
Family History: Not pertinent
Allergies / Home Medications
Allergies reflects when Allergies were last updated in [employer].
Home Medications with original date entered in [employer]
Allergy/Medication List:
Allergies
Allergy/AdvReac Type Severity Reaction Status Date / Time
cephalexin [From Keflex] Allergy itching, Verified 11/26/24 09:33
skin
peeling
latex Allergy Itching Verified 11/26/24 09:33
Home Medications
apixaban 5 mg tablet (Eliquis) 5 mg PO BID@0700,1800 11/26/24
furosemide 40 mg tablet 80 mg PO BID@0700,1800 11/26/24
losartan 100 mg tablet 100 mg PO DAILY 11/26/24
mupirocin 2 % topical ointment 1 applic topical BID 11/26/24
therapeutic multivitamin 1 tab PO DAILY 11/26/24
Review of Systems
-
A 12 point ROS was completed and negative except as noted: Yes
Constitutional: Reports No Symptoms
Physical Exam
Vital Signs
Vital Signs
Temp Pulse Resp BP Pulse Ox
99.2 F 72 27 113/55 97
11/26/24 09:31 11/26/24 11:15 11/26/24 11:15 11/26/24 09:31 11/26/24 11:28
Physical Exam
General: Other (.)
Laboratory Results
-
11/26/24 09:40
11/26/24 09:40
Laboratory Results
Lactic Acid 1.6 mmol/L (0.7-2.0) 11/26/24 11:37
Total Bilirubin 0.8 mg/dl (0.2-1.3) 11/26/24 09:40
AST 32 U/L (17-59) 11/26/24 09:40
ALT 25 U/L (0-50) 11/26/24 09:40
Alkaline Phosphatase 44 U/L (38-126) 11/26/24 09:40
Impression/Plan
-
Gen: NAD, AAOx3.
Eyes: EOMI, PERRLA, no scleral icterus.
Neck: supple.
CV: RRR, +S1/S2, no m/r/g.
Resp: CTAB, no rales, wheezes, or rhonchi.
Abd: +BS, soft, NT, ND
Skin: LLE cellulitis, LLE ulcer with thick serous drainage with induration
Neuro: CN 2-12 intact, non-focal.
Psych: Normal mood and affect.
Sepsis due to LLE cellulitis due to puncture wound:
-patient had allergic reaction to Keflex prior to admission and vancomycin in the ER
-continue with Zyvox and meropenem
-30cc/kg IVF bolus for ABW of 113.7kg
-follow BCxs
-surgery and ID to see
-trend leukocytosis/fever curve
Other problems:
Afib, presumed paroxysmal: cont Eliquis
Essential HTN: Hold ARB/lasix
Morbid obesity due to excess calories
FULL/Eliquis
--- NOTE | 2024-11-26 14:19 | EDRN ---
Dr. Winter made aware of patient's rash traveling up right arm. Asuncion stopped per Dr. Winter.
[2024-11-26] MEDS: ZYVOX 600 MG PO ×2 (14:58→21:42)
--- NOTE | 2024-11-26 15:11 | CON.GS ---
Addendum entered and electronically signed by Ezio Toscano MD 11/27/24 11:25:
Patient seen and examined.
Patient is a 79 yo M with a PMH of morbid obesity, HTN, HLD, A-fib (on Eliquis, LD 11/25), COPD, JESSICA, chronic lymphedema, s/p LEFT meniscus repair, s/p anal fistulotomy and endorectal advancement [place] [address] Edward. Mr. Smalls presents with
a RIGHT lower extremity wound. He states that he struck his leg on some metal hardware back on 11/13/2024. He initially suffered some bleeding which is subsequently resolved. He went to an urgent care and received a tetanus shot and was placed on
Keflex. Unfortunately he developed desquamation of the skin on his palms and was unable to complete his antibiotic course. He was evaluated by an outpatient carton stapler and prescribed mupirocin ointment. He states that the redness to the site
has persisted despite topical ointment. He developed fevers and chills on the evening of 11/25. Currently he denies any worsening pain and states that he feels improved. No drainage. No fevers since admission.
Gen: NAD
RLE: small ulceration to right alonso measuring 2 cm, desiccated fat, slough and small eschar to base of wound, mild blanching erythema down to the ankle and up to the mid thigh (marked, improved), mild pain, no drainage, no bullae or necrosis, no
crepitus
Labs and CT scan imaging were reviewed.
Patient is a 79 yo M p/w RLE cellulitis secondary to a wound from a recent trauma in the setting of morbid obesity, anticoagulation, and lymphedema
No concern for a necrotizing soft tissue infection either clinically or radiographically. No evidence of a deeper seeded fluid collection or abscess requiring surgical drainage. Symptoms have persisted due to incomplete antibiotic treatment
secondary to intolerances and reactions. Recommend local wound care. No plans or indication for surgical intervention. All questions answered. Call with any questions or concerns.
-- Local wound care with Adrianna Roman, DALJIT
-- Abx per primary and ID
-- Call with any questions or concerns
Original Note:
Consultation
-
Date/Time Consultation Performed: 11/26/24 1500
Medical History
-
Chief Complaint: right alonso wound
History of Present Illness:
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 He had quite a lot of bleeding with the initial injury and has had
bleeding off and on since but none on current exam. He went to urgent care just after his injury and received a tetanus shot and was placed on Keflex. He developed desquamation of the skin on his palms on this medication but did continue to take it.
He was seen as an outpatient by dermatology as his RLE continued to be reddened and was placed on topical mupirocin for the wound. Redness to the site persisted despite topical therapy. Last night, he became chilled with rigors and his noted a
temperature of 101. He presents today through the ED for further evaluation. On exam, chronic lymphedema is present but equal bilaterally with discoloration to BLLE. Good capillary refill noted bilaterally as well as strong DP and PT pulses. There
is a small imna sized ulcer to the right alonso with surrounding erythema ascending up to the upper thigh.
Past Medical History
Past Medical History: Arrhythmias (afib, CV), COPD, HTN, Hypercholesterolemia and Other (morbid obesity, chronic lymphedema, JESSICA)
Past Surgical History: Orthopedic (left meniscus repair) and Other (anal fistulotomy and endorectal advancement flap (2016, [place]), cataracts)
Social History
Tobacco: Former Smoker
Personal:
Living: With Family
Family History
Family History: Reviewed & Not Pertinent
Allergies / Home Medications
Allergy/AdvReac Type Severity Reaction Status Date / Time
cephalexin [From Keflex] Allergy itching, Verified 11/26/24 09:33
skin
peeling
latex Allergy Itching Verified 11/26/24 09:33
�Medication �Instructions �Recorded �Confirmed �Type
apixaban 5 mg tablet (Eliquis) 5 mg PO BID@0700,1800 11/26/24 11/26/24 History
furosemide 40 mg tablet 80 mg PO BID@0700,1800 11/26/24 11/26/24 History
losartan 100 mg tablet 100 mg PO DAILY 11/26/24 11/26/24 History
mupirocin 2 % topical ointment 1 applic topical BID 11/26/24 11/26/24 History
therapeutic multivitamin 1 tab PO DAILY 11/26/24 11/26/24 History
Review of Systems
-
History Source: Patient and Family
All other systems: Negative unless noted
A 10 point review of systems was completed, and was negative except as per HPI.
Physical Exam
Vital Signs
Temp Pulse Resp BP Pulse Ox
99.2 F 72 27 113/55 97
11/26/24 09:31 11/26/24 11:15 11/26/24 11:15 11/26/24 09:31 11/26/24 11:28
11/25/24 11/26/24 11/27/24
06:59 06:59 06:59
Actual Weight 161.5 kg
Body Mass Index (BMI) 45.7
Lab Results
11/26/24 09:40
11/26/24 09:40
WBC 24.1 10^3/uL (4.8-10.8) H 11/26/24 09:40
Hgb 13.3 g/dL (13.0-18.0) 11/26/24 09:40
Hct 37.8 % (39.0-52.0) L 11/26/24 09:40
Plt Count 219 10^3/uL (130-400) 11/26/24 09:40
Abs Immat Gran (auto) 0.3 10^3/uL (0-0.05) H 11/26/24 09:40
Neutrophils % 91.4 % (42.2-75.2) H 11/26/24 09:40
Physical Exam
General: Well Developed and Well Nourished
HEENT: Moist Mucous Membranes
Respiratory: Non Labored Respirations
Cardiac: Peripheral Edema (3+ BLLE) and Other (strong dp and pt BLLE, good cap refill)
GI: Soft and Non Tender
Skin: Warm and Other (small ulceration to right alonso with slough and small eschar to base of wound with erythema down to the ankle and up to the mid thigh (marked))
Neuro: Awake, Alert and AO x 3
Psych: Calm
Data Reviewed
-
Labs: Labs Reviewed by me, Discussed with Physician and Discussed with Patient
Old Records: Reviewed
Assessment / Plan
-
79 yo male with h/o lymphedema and morbid obesity on Eliquis for Afib (LD 11/25/24 in the am) presenting with cellulitis extending from an ulceration from injury on 11/13/24 by a metal bracket. S/p tetanus shot shortly after injury. S/p course of
keflex then mupirocin as OP.
On exam, chronic lymphedema is present but equal bilaterally with chronic discoloration to BLLE. Good capillary refill noted bilaterally as well as strong DP and PT pulses. There is a small mina sized ulcer to the right alonso with slough/eschar at
base of wound and surrounding erythema ascending up to the upper thigh. No palpable induration/fluctuance. Febrile to 101 at home, afebrile here. WBC up to 24.2. VSS.
--Check CT of the RLE with IV contrast in further evaluation
--Local wound care with Santyl to base of wound for chemical debridement of small layer of slough
--ABX as per ID, erythema to level of upper thigh marked at bedside
--Eliquis on hold pending CT findings
--Follow CBC/fever trend
--Wound and blood cx sent and pending
No plans for surgery today, anticipate he will likely improve with local wound care and abx. Further surgical recs pending CT findings.
--- NOTE | 2024-11-26 16:45 | CON.ID ---
Consultation
-
Date/Time Consultation Requested: November 26, 2024 1419
Date/Time Consultation Performed: November 26, 2024 1645
Requesting Provider: Dr. Venkat Winter
Performing Provider: Dr. Karine Smith
Reason for Consultation: Puncture wound
Chief Complaint / Past History
Chief Complaint
Left leg redness and swelling.
History of Present Illness
History obtained from the patient and from his at bedside. 79-year-old male with history of COPD, atrial fibrillation, venous insufficiency, bilateral lower extremity lymphedema who presented to the ED today due to fever, chills, and leg
infection. On November 13, he banged his left leg against the latch of the train model table. There was a deep wound that kept bleeding. He went to urgent care the same day who cleaned the wound, gave him a tetanus shot, and prescribed cephalexin for 7
days. While on cephalexin he developed diffuse itching and skin peeling on his palms. He did complete the course of cephalexin. He saw dermatology who recommended topical mupirocin. Last evening, patient had sudden onset of shaking chills. His
took his temperature and it was 101. This morning he noted that his left leg was red and more swollen. He came to the ER. Temperature 103. White count 24. He received Zosyn first followed by IV vancomycin. However during vancomycin
infusion, he developed pruritic rash from the infusion site up to his arm. The vancomycin was discontinued. Pruritus is better.
Past History
Additional Past Medical History:
COPD
Hypertension
Paroxysmal atrial fibrillation
HLD
Spinal stenosis
Neuropathy
JESSICA
Class III obesity BMI 46
Bilateral LE lymphedema, compliant with compression pumps
Venous insufficiency h/x ablation
Left knee meniscal repair
anal fistulotomy and endorectal advancement flap
Allergy History:
cephalexin [From Keflex] Allergy (Verified 11/26/24 09:33)
itching, skin peeling
latex Allergy (Verified 11/26/24 09:33)
Itching
Medications Reviewed: Yes
Current Antibiotics:
Vancomycin, Zosyn, linezolid in ED
Meropenem day 1
Social History
Tobacco: Former Smoker
Alcohol: None
Drug: None
Personal:
Family History
Family History: Not Pertinent
Review of Systems
Review of Systems
General: Fever, Chills and Change in Appetite
HEENT: Negative Sinus Problems or Headache
Cardiovascular: Negative Chest Pain or Dyspnea
Respiratory: Negative Dyspnea or Cough
Gasteroenterology: Negative Nausea, Vomiting or Diarrhea
Genital / Urological: Negative Dysuria or Flank Pain
Endocrine: Weakness
Neurological: Negative Dizziness
All systems: All other systems were reviewed and were negative
Vital Signs
Temp Pulse Resp BP Pulse Ox
99.2 F 72 27 113/55 97
11/26/24 09:31 11/26/24 11:15 11/26/24 11:15 11/26/24 09:31 11/26/24 11:28
Physical Exam
Physical Exam
Constitutional: No Acute Distress
Eyes: No Conjunctival Hemorrhage and Sclera Anicteric
Cardiovascular: Regular Rate and S1/S2
Pulmonary: Clear
Gastrointestinal: Soft, Non Tender, Non Distended and Normal Bowel Sounds
Extremities: Edema (LLE 3+ edema) and Erythema (Bright erythema from ankle all the way up to upper thigh, + warmth.)
Wound: Other (Left distal leg with round 1cm wound deep with serous drainage. )
Neurological: AO x 3
Lab / Diagnostic Study Results
11/26/24 09:40
11/26/24 09:40
Abs Immat Gran (auto) 0.3 10^3/uL (0-0.05) H 11/26/24 09:40
Absolute Neuts (auto) 22.0 10^3/uL (1.4-6.5) H 11/26/24 09:40
Absolute Lymphs (auto) 0.9 10^3/uL (1.2-3.4) L 11/26/24 09:40
Absolute Monos (auto) 0.9 10^3/uL (0.1-0.6) H 11/26/24 09:40
Absolute Basos (auto) 0.1 10^3/uL (0-0.2) 11/26/24 09:40
Immature Gran % 1.0 % (0-0.5) H 11/26/24 09:40
Neutrophils % 91.4 % (42.2-75.2) H 11/26/24 09:40
Lymphocytes % 3.6 % (20.5-51.1) L 11/26/24 09:40
Monocytes % 3.8 % (1.7-9.3) 11/26/24 09:40
Eosinophils % 0.0 % (0-6) 11/26/24 09:40
Basophils % 0.2 % (0-2) 11/26/24 09:40
Lactic Acid Cancelled 11/26/24 15:15
Microbiology Results
Micro:
11/26/24 11:37 Wound Culture - Pending
Ulcer Gram Stain - Preliminary
11/26/24 11:37 Blood Culture - Pending
Blood/Venous
11/26/24 11:37 Blood Culture - Pending
Blood/Venous
Assessment / Plan
# Acute LLE cellulitis
# Recent hx of trauma/puncture wound to LLE
# Sepsis with fever and leukocytosis
# Allergy to cephalexin (skin peeling on palms) and IV Vancomycin (infusion site pruritic rash streaking up arm)
- Suspect Group A step vs Staph cellulitis
-Resume po linezolid which has toxin inhibitor properties.
-Pt tolerated PCN in the past. Also tolerated Zosyn in ED.
Replace meropenem with Zosyn.
- Follow blood cx's.
- CT LLE pending
- Trend temps/wbc.
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
COPD
Hypertension
Paroxysmal atrial fibrillation
HLD
Spinal stenosis
Neuropathy
JESSICA
Class III obesity BMI 46
Bilateral LE lymphedema, compliant with compression pumps
Venous insufficiency h/x ablation
Left knee meniscal repair
anal fistulotomy and endorectal advancement flap
--- NOTE | 2024-11-26 19:00 | EDRN ---
Report received, introduced myself to patient and family, informed patient that he may be staying down here due to bed availability but will keep him updated, processed his admission orders to can medicate per the MAR, patient otherwise resting
comfortably
[2024-11-26] MEDS: ELIQUIS 5 MG PO (20:33)
[2024-11-26] MEDS: SANTYL OINTMENT 1 APPLIC TOPICAL (20:33)
--- NOTE | 2024-11-26 20:40 | EDRN ---
Patient informed me that he is on Bipap at night, do not see an admission order for bipap, yesika texted STAGE SETTINGS PAINTER covering IMU to have this ordered for patient
[2024-11-26] MEDS: TYLENOL 650 MG PO (21:59)
--- NOTE | 2024-11-26 22:13 | EDRN ---
Patient ambulated into the restroom and then back in bed, placed patient in hospital bed for comfort, rechecked temp as well which was starting to rise, medicated as ordered in SEP and respiratory placed patient on bipap, call taylor in reach, no
further needs at this time.
[2024-11-27] VITALS (15 sets, daily range): BP systolic 93–158; BP diastolic 50–88; PULSE 2–75; BMI 45.7
--- NOTE | 2024-11-27 01:30 | EDRN ---
Patient bond trader taylor, thought he needed to go to the bathroom, gave him a specimen cup to try, wasn't able to urinate, gave patient a new gown, his got wet, back in bed resting comfortably.
[2024-11-27 01:49] LABS: Lactic Acid 1.2 mmol/L (0.7-2.0)
[2024-11-27 04:51] LABS: Urine Albumin 2+ (Neg - Trace); Urine Bilirubin Negative (Negative); Urine Character Clear (Clear); Urine Color Yellow; Urine Glucose Negative (Negative); Urine Ketone Negative (Negative); Urine Leukocyte Negative (Negative); Urine Nitrite Negative (Negative); Urine Occult Blood 1+ (Negative); Urine Specific Gravity 1.015 (<1.030); Urine Urobilinogen Negative (Neg - 1+)
[2024-11-27 05:15] LABS: Urine Squamous Cell >30 /LPF (Few)
[2024-11-27 05:16] LABS: Urine Amorphous Seen; Urine White Cell 21-25 /HPF (0-5)
[2024-11-27 05:17] LABS: Urine Bacteria Many (Negative)
[2024-11-27] MEDS: ZOSYN 50 IV ×4 (06:29→23:54)
[2024-11-27 06:43] LABS: Hematocrit 35.3 % (39.0-52.0); Hemoglobin 12.5 g/dL (13.0-18.0); Mean Corp Hgb Conc. 35.4 g/dL (33.0-37.0); Mean Corpuscular Volume 87.6 fL (80.0-94.0); Mean Platelet Volume 10.3 fL (7.4-10.4); Platelet Count 188 10^3/uL (130-400); Red Blood Cell Count 4.03 10^6/uL (4.70-6.10); Red Cell Dist. Width 14.4 % (11.5-14.5); White Blood Cell Count 14.5 10^3/uL (4.8-10.8)
[2024-11-27 06:53] LABS: Blood Urea Nitrogen 21 mg/dl (9-20); Calcium 7.7 mg/dl (8.4-10.2); Carbon Dioxide 25 mmol/L (22-30); Chloride 109 mmol/L (98-107); Estimated Creatinine Clearance 93 ml/min; Glucose 114 mg/dl (70-99); Potassium 3.6 mmol/L (3.5-5.1); Sodium 136 mmol/L (135-145); eGFR > 60.00
[2024-11-27] MEDS: ZYVOX 600 MG PO ×2 (07:27→19:54)
[2024-11-27] MEDS: ELIQUIS 5 MG PO ×2 (07:27→17:02)
[2024-11-27] MEDS: NSS 1000 IV (10:30)
--- NOTE | 2024-11-27 11:22 | W.PN.HOSP.TC ---
Today's Communication/Plan
-
see outlined plan below
Assessment / Plan
Assessment / Plan
Gen: NAD, AAOx3.
Eyes: EOMI, PERRLA, no scleral icterus.
Neck: supple.
CV: RRR, +S1/S2, no m/r/g.
Resp: CTAB, no rales, wheezes, or rhonchi.
Abd: +BS, soft, NT, ND
Skin: LLE cellulitis, LLE ulcer with thick serous drainage with induration. b/l hand with skin desquamation
Neuro: CN 2-12 intact, non-focal.
Psych: Normal mood and affect.
Assessment:
Sepsis due to LLE cellulitis due to puncture wound
- s/p sepsis protocol IVF
- completed Keflex course (developed allergic symptoms)
- Vanco in ER led to pruritus
- continue Zosyn and Zyvox per ID
- follow cultures
- CT: Small defect in the soft tissues of the anterior mid to lower leg corresponding to the history of a alonso wound. no drainable fluid collection.
- GS evaluated, no surgical plans. continue wound care
Afib, presumed paroxysmal: cont Eliquis
COPD
HLD
Spinal stenosis
Neuropathy
JESSICA
Bilateral LE lymphedema, compliant with compression pumps
Venous insufficiency h/x ablation
- continue Lasix
Essential HTN: Hold ARB. Continue Lasix
Morbid obesity due to excess calories
DVT ppx: Eliquis
Code: Full
Anticipated Discharge: > 48 hours
Subjective/Interval History
-
Date of Service: November 27, 2024
resting comfortably, no complaints at present
tolerating Zosyn
Objective Data
-
Labs:
Laboratory Results
11/27/24
06:25
WBC 14.5 H
Hgb 12.5 L
Hct 35.3 L
Plt Count 188
Sodium 136
Potassium 3.6
Chloride 109 H
Carbon Dioxide 25
BUN 21 H
Creatinine 1.0
Glucose 114 H
Calcium 7.7 L
Vital Signs:
Vital Signs
Temp Pulse Resp BP Pulse Ox
99.3 F 86 18 93/55 92
11/27/24 06:34 11/27/24 07:00 11/27/24 07:00 11/27/24 07:00 11/27/24 06:00
Data Reviewed
-
Total Time Spent with Patient (in minutes): 45
Labs: Labs Reviewed by me
--- NOTE | 2024-11-27 11:25 | W.PN.ID1 ---
Date of Service
Date of Service: November 27, 2024
Today's Communication
Continue linezolid and Zosyn.
Assessment / Plan
# Acute LLE cellulitis
# Recent hx of trauma/puncture wound to LLE
# Sepsis with fever and leukocytosis - improving
# Allergy to cephalexin (skin peeling on palms) and IV Vancomycin (infusion site pruritic rash streaking up arm)
# BLE lymphedema
- Wound cx: Pseudomonas
- Follow blood cx's.
-Continue po linezolid (d2) and Zosyn (d2)
- DALJIT-wrap compression
- Trend temps/wbc.
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
COPD
Hypertension
Paroxysmal atrial fibrillation
HLD
Spinal stenosis
Neuropathy
JESSICA
Class III obesity BMI 46
Bilateral LE lymphedema, compliant with compression pumps
Venous insufficiency h/x ablation
Left knee meniscal repair
anal fistulotomy and endorectal advancement flap
Chief Complaint
-: Cellulitis
Subjective / Review of Systems
Feeling better today. Left leg still swollen.
Vital Signs / Physical Exam
Vital Signs
Vital Signs
Temp Pulse Resp BP Pulse Ox
99.3 F 86 18 93/55 92
11/27/24 06:34 11/27/24 07:00 11/27/24 07:00 11/27/24 07:00 11/27/24 06:00
Selected Entries
11/26/24
21:57
Temp 100.5 F H
Physical Exam
Constitutional: No Acute Distress and Obese
Cardiovascular: Regular Rate and S1/S2
Pulmonary: Clear
Gastrointestinal: Soft, Non Tender and Non Distended
Genito-Urinary: Negative CVA Tenderness
Extremities: Edema (LLE 3+ edema) and Erythema (Erythema ankle to thigh slightly improved)
Wound: Other (Left distal leg wound dry)
Neurological: AO x 3
Objective Data
Lab Data
Lab Results
11/27/24 06:25
11/27/24 06:25
Estimated Creat Clear 93 ml/min 11/27/24 06:25
Lactic Acid Cancelled 11/27/24 07:10
Total Bilirubin 0.8 mg/dl (0.2-1.3) 11/26/24 09:40
AST 32 U/L (17-59) 11/26/24 09:40
ALT 25 U/L (0-50) 11/26/24 09:40
Alkaline Phosphatase 44 U/L (38-126) 11/26/24 09:40
Most recent labs reviewed.
Micro Results:
11/26/24 11:37 Wound Culture - Preliminary
Ulcer Pseudomonas aeruginosa
Gram Stain - Preliminary
11/27/24 04:20 Urine Culture - Pending
Urine
11/27/24 01:26 Blood Culture - Pending
Blood/Venous
11/27/24 01:26 Blood Culture - Pending
Blood/Venous
11/26/24 11:37 Blood Culture - Pending
Blood/Venous
11/26/24 11:37 Blood Culture - Pending
Blood/Venous
11/26/24 CT LLE: Small defect in the soft tissues of the anterior mid to lower leg corresponding to the history of a alonso wound. No drainable fluid collection. Diffuse subcutaneous edema about the lower leg, ankle, and foot. No radiopaque foreign
body or soft tissue gas. Trace knee joint effusion. No Bowden's cyst. No significant ankle joint effusion. The visualized subcutaneous soft tissues and musculature are otherwise unremarkable by CT.
Care Review
Plan reviewed with: Physician (Dr. Ann)
--- NOTE | 2024-11-27 13:14 | PTCARENOTE ---
patient arrived to unit. VSS. Patient Ox4. Patient tolerated ambulating from stretcher to bed. free from falls. patient in NAD. Wound to R leg assessed and dressing clean, dry, and intact. call taylor in reach. safety maintained.
[2024-11-27] MEDS: KCL 40 MEQ PO (16:14)
[2024-11-27] MEDS: LASIX 80 MG PO (16:14)
[2024-11-27] MEDS: SANTYL OINTMENT 1 APPLIC TOPICAL (17:02)
[2024-11-28] VITALS (9 sets, daily range): BP systolic 118–143; BP diastolic 71–96; PULSE 68–80; BMI 45.8
[2024-11-28] MEDS: NSS 1000 IV (03:20)
[2024-11-28] MEDS: ZOSYN 50 IV (06:23)
[2024-11-28] MEDS: LASIX 80 MG PO (08:08)
[2024-11-28] MEDS: ZYVOX 600 MG PO ×2 (08:09→20:50)
[2024-11-28] MEDS: ELIQUIS 5 MG PO ×2 (08:11→17:51)
[2024-11-28 08:50] LABS: Hematocrit 36.5 % (39.0-52.0); Hemoglobin 12.5 g/dL (13.0-18.0); Mean Corp Hgb Conc. 34.2 g/dL (33.0-37.0); Mean Corpuscular Hgb 30.1 pg (27.0-31.0); Mean Platelet Volume 10.1 fL (7.4-10.4); Platelet Count 208 10^3/uL (130-400); Red Blood Cell Count 4.15 10^6/uL (4.70-6.10); Red Cell Dist. Width 14.5 % (11.5-14.5); White Blood Cell Count 9.2 10^3/uL (4.8-10.8)
[2024-11-28 09:09] LABS: Blood Urea Nitrogen 16 mg/dl (9-20); Calcium 8.2 mg/dl (8.4-10.2); Carbon Dioxide 24 mmol/L (22-30); Chloride 111 mmol/L (98-107); Estimated Creatinine Clearance 93 ml/min; Glucose 124 mg/dl (70-99); Potassium 4.2 mmol/L (3.5-5.1); Sodium 140 mmol/L (135-145); eGFR > 60.00
--- NOTE | 2024-11-28 10:09 | W.PN.HOSP.TC ---
Today's Communication/Plan
-
continue Abx per ID
continue wound care
hold diuretics, hold IVF
check orthostatics
compression therapy
Assessment / Plan
Assessment / Plan
Gen: NAD, AAOx3.
Eyes: EOMI, PERRLA, no scleral icterus.
Neck: supple.
CV: RRR, +S1/S2, no m/r/g.
Resp: CTAB, no rales, wheezes, or rhonchi.
Abd: +BS, soft, NT, ND
Skin: LLE cellulitis, LLE ulcer with thick serous drainage with induration. b/l hand with skin desquamation
Neuro: CN 2-12 intact, non-focal.
Psych: Normal mood and affect.
Assessment:
Sepsis due to LLE cellulitis due to puncture wound
- s/p sepsis protocol IVF
- completed Keflex course (developed allergic symptoms)
- Vanco in ER led to pruritus
- continue Zosyn and Zyvox per ID
- wound culture with pseudomonas
- CT: Small defect in the soft tissues of the anterior mid to lower leg corresponding to the history of a alonso wound. no drainable fluid collection.
- GS evaluated, no surgical plans. continue wound care
Afib, presumed paroxysmal: cont Eliquis
COPD
HLD
Spinal stenosis
Neuropathy
JESSICA
Bilateral LE lymphedema, compliant with compression pumps
Venous insufficiency h/x ablation
- continue Lasix
Essential HTN: Hold ARB. Continue Lasix
Morbid obesity due to excess calories
DVT ppx: Eliquis
Code: Full
Anticipated Discharge: > 48 hours
Subjective/Interval History
-
Date of Service: November 27, 2024
reports dizziness, BP 120 (baseline is 120)
denies any other complaints
Objective Data
-
Labs:
Laboratory Results
11/28/24
08:29
WBC 9.2
Hgb 12.5 L
Hct 36.5 L
Plt Count 208
Sodium 140
Potassium 4.2
Chloride 111 H
Carbon Dioxide 24
BUN 16
Creatinine 1.0
Glucose 124 H
Calcium 8.2 L
Vital Signs:
Vital Signs
Temp Pulse Resp BP Pulse Ox
98.4 F 78 18 120/71 95
11/28/24 07:27 11/28/24 07:27 11/28/24 07:27 11/28/24 07:27 11/28/24 07:27
I&O
11/27/24 11/28/24 11/29/24
06:59 06:59 06:59
Intake Total 720 / 720
Balance 720 / 720
Data Reviewed
-
Total Time Spent with Patient (in minutes): 44
Labs: Labs Reviewed by me
--- NOTE | 2024-11-28 10:37 | W.PN.ID1 ---
Date of Service
Date of Service: November 28, 2024
Today's Communication
-Continue po linezolid (d3)
- Narrow Zosyn to cipro 750mg po bid (d3).
-Follow clinically
Assessment / Plan
# Acute LLE cellulitis, improving
# Recent hx of trauma/puncture wound to LLE
# Sepsis with fever and leukocytosis - resolved
# Allergy to cephalexin (skin peeling on palms) and IV Vancomycin (infusion site pruritic rash streaking up arm)
# BLE lymphedema
- Wound cx: Pseudomonas
- blood cx's negative to date
-Continue po linezolid (d3)
- Narrow Zosyn to cipro 750mg po bid (d3).
- Continue thigh-high DALJIT-wrap compression
- Continue to follow clinically
# Conditions SHOWER MAID
COPD
Hypertension
Paroxysmal atrial fibrillation
HLD
Spinal stenosis
Neuropathy
JESSICA
Class III obesity BMI 46
Bilateral LE lymphedema, compliant with compression pumps
Venous insufficiency h/x ablation
Left knee meniscal repair
anal fistulotomy and endorectal advancement flap
Chief Complaint
-: Cellulitis
Subjective / Review of Systems
leg more comfortable
Vital Signs / Physical Exam
Vital Signs
Vital Signs
Temp Pulse Resp BP Pulse Ox
98.4 F 78 18 120/71 95
11/28/24 07:27 11/28/24 07:27 11/28/24 07:27 11/28/24 07:27 11/28/24 07:27
Physical Exam
Constitutional: No Acute Distress
Cardiovascular: Regular Rate and S1/S2
Pulmonary: Clear
Gastrointestinal: Soft, Non Tender and Non Distended
Genito-Urinary: Negative CVA Tenderness
Extremities: Edema (LLE 3+ edema) and Erythema (Erythema ankle to thigh decreased, not as warm)
Wound: Other (Left distal leg wound dry)
Neurological: AO x 3
Objective Data
Lab Data
Lab Results
11/28/24 08:29
11/28/24 08:29
Estimated Creat Clear 93 ml/min 11/28/24 08:29
Lactic Acid Cancelled 11/27/24 07:10
Total Bilirubin 0.8 mg/dl (0.2-1.3) 11/26/24 09:40
AST 32 U/L (17-59) 11/26/24 09:40
ALT 25 U/L (0-50) 11/26/24 09:40
Alkaline Phosphatase 44 U/L (38-126) 11/26/24 09:40
Most recent labs reviewed.
Micro Results:
11/27/24 04:20 Urine Culture - Final
Urine No Significant Growth
11/26/24 11:37 Wound Culture - Preliminary
Ulcer Pseudomonas aeruginosa
Gram Stain - Preliminary
11/27/24 01:26 Blood Culture - Preliminary
Blood/Venous No Growth in 24 hours- Final report to follow
11/27/24 01:26 Blood Culture - Preliminary
Blood/Venous No Growth in 24 hours- Final report to follow
11/26/24 11:37 Blood Culture - Preliminary
Blood/Venous No Growth in 24 hours- Final report to follow
11/26/24 11:37 Blood Culture - Preliminary
Blood/Venous No Growth in 24 hours- Final report to follow
11/26/24 CT LLE: Small defect in the soft tissues of the anterior mid to lower leg corresponding to the history of a alonso wound. No drainable fluid collection. Diffuse subcutaneous edema about the lower leg, ankle, and foot. No radiopaque foreign
body or soft tissue gas. Trace knee joint effusion. No Bowden's cyst. No significant ankle joint effusion. The visualized subcutaneous soft tissues and musculature are otherwise unremarkable by CT.
[2024-11-28] MEDS: CIPRO 500 MG PO ×2 (11:24→20:50)
[2024-11-28] MEDS: CIPRO 250 MG PO ×2 (11:24→20:50)
--- NOTE | 2024-11-28 13:59 | CM ---
Addendum entered by Chantel eWi 11/28/24 14:07:
PCP: Dr Lizarraga
Pharmacy: [facility] in [place]
Original Note:
business project manager reviewed patient's chart and met with patient and patient reports that he lives with his spouse in a 2 story home with an elevator, patient is independent with adl's and ambulation, patient has scooters and BIPAP machine in home,
recommendation is for home with visiting nurses options reviewed with patient and patient has selected [facility], [facility] liasion contacted.
Plan; Home with [facility] when stable.
--- NOTE | 2024-11-28 14:25 | WOUNDNOTE ---
[facility] RN note: Patient admitted with R leg cellulitis.
See H&P for complete history. Lives with Breanne.
PMH: ED Past Medical History: HTN, Other (morbid obesity) and Other (OA, B LE lymphedema)
ED Past Surgical History: Other (rectal/anal fissure surgery)
Wound Location and type/assessment: Patient admitted with: R lower anterior leg with trauma wound from a metal object. Reviewed surgical consult, Santyl already on order. R leg with resolving cellulitis, base of ulcer with olguin slough, no odor. +
pseudomonas on wound culture results, I&D on consult. L leg with no open ulcer, scar visible lower medial leg. Heels and sacrum intact. Patient states he uses eloisa wraps at home for chronic lymphedema and lymphedema pump daily. Has Velcro compression
wraps but does not like to use them.
Appetite: Good.
Pressure redistribution devices in place: Accumax, can turn self.
Plan: Continue Santyl dressing and eloisa wraps as ordered, dressing and eloisa changed.
Updated care plan and will follow as needed.
Note to case management of equipment requested for discharge: None.
Recommend follow up at wound care center upon discharge.
--- NOTE | 2024-11-28 14:34 | VNURNOTE ---
Home Health Liaison met with patient at bedside to discuss [facility] nurse/therapy, visits, schedule and homebound status. Patient is agreeable and understands that visits at home will be 2-3 x per week to assess and teach medical management and wound
care. Patient is aware that [facility] will contact them for start of care in 1-2 days after discharge from .
[facility] referral completed in [facility].
[2024-11-28] MEDS: SANTYL OINTMENT TOPICAL (17:50)
[2024-11-29 03:20] VITALS: BP 150/78
[2024-11-29] MEDS: ELIQUIS 5 MG PO ×2 (06:05→17:49)
[2024-11-29 07:12] LABS: Hematocrit 36.8 % (39.0-52.0); Hemoglobin 12.5 g/dL (13.0-18.0); Mean Corpuscular Hgb 30.1 pg (27.0-31.0); Mean Corpuscular Volume 88.7 fL (80.0-94.0); Mean Platelet Volume 10.6 fL (7.4-10.4); Platelet Count 239 10^3/uL (130-400); Red Blood Cell Count 4.15 10^6/uL (4.70-6.10); Red Cell Dist. Width 14.2 % (11.5-14.5); White Blood Cell Count 7.9 10^3/uL (4.8-10.8)
[2024-11-29 07:31] VITALS: BP 134/79
[2024-11-29 07:48] LABS: Blood Urea Nitrogen 17 mg/dl (9-20); Calcium 8.4 mg/dl (8.4-10.2); Carbon Dioxide 27 mmol/L (22-30); Chloride 109 mmol/L (98-107); Estimated Creatinine Clearance 104 ml/min; Glucose 106 mg/dl (70-99); Potassium 4.2 mmol/L (3.5-5.1); Sodium 139 mmol/L (135-145); eGFR > 60.00
[2024-11-29] MEDS: ZYVOX 600 MG PO (08:20)
[2024-11-29] MEDS: CIPRO 250 MG PO (08:20)
[2024-11-29] MEDS: CIPRO 500 MG PO (08:21)
--- NOTE | 2024-11-29 09:15 | W.PN.ID1 ---
Date of Service
Date of Service: November 29, 2024
Today's Communication
- DC po linezolid (d4)
- Switch cipro 750mg po bid (d4 abx) to Levofloxacin 750mg po q24h
- If tolerates levofloxacin, continue abx through 12/05/24.
Assessment / Plan
# Acute LLE cellulitis, continues to improve
# Recent hx of trauma/puncture wound to LLE
# New orthostatic dizziness
# s/p Sepsis with fever and leukocytosis - resolved
# Allergy to cephalexin (skin peeling on palms) and IV Vancomycin (infusion site pruritic rash streaking up arm)
# BLE lymphedema
- Wound cx: Pseudomonas, Group B strep
- blood cx's negative to date
- Dizziness possible due to linezolid
- DC po linezolid (d4)
- Switch cipro 750mg po bid (d4 abx) to Levofloxacin 750mg po q24h
- If tolerates levofloxacin, continue abx through 12/05/24.
- Continue thigh-high DALJIT-wrap compression
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
COPD
Hypertension
Paroxysmal atrial fibrillation
HLD
Spinal stenosis
Neuropathy
JESSICA
Class III obesity BMI 46
Bilateral LE lymphedema, compliant with compression pumps
Venous insufficiency h/x ablation
Left knee meniscal repair
anal fistulotomy and endorectal advancement flap
Chief Complaint
-: Cellulitis
Subjective / Review of Systems
Spoke to on phone and patient.
Pt reports he feels dizzy upon standing. Sxs started 2 days ago.
Vital Signs / Physical Exam
Vital Signs
Vital Signs
Temp Pulse Resp BP Pulse Ox
98.3 F 62 20 134/79 95
11/29/24 07:31 11/29/24 07:31 11/29/24 07:31 11/29/24 07:31 11/29/24 07:31
Physical Exam
Constitutional: No Acute Distress
Cardiovascular: Irregular Rate and S1/S2
Pulmonary: Clear
Gastrointestinal: Soft, Non Tender and Non Distended
Genito-Urinary: Negative CVA Tenderness
Extremities: Edema (LLE 2+ edema) and Erythema (Erythema ankle to thigh now mild, receding)
Wound: Other (Left distal leg wound stable)
Neurological: AO x 3
Objective Data
Lab Data
Lab Results
11/29/24 05:57
11/29/24 05:57
Estimated Creat Clear 104 ml/min 11/29/24 05:57
Lactic Acid Cancelled 11/27/24 07:10
Total Bilirubin 0.8 mg/dl (0.2-1.3) 11/26/24 09:40
AST 32 U/L (17-59) 11/26/24 09:40
ALT 25 U/L (0-50) 11/26/24 09:40
Alkaline Phosphatase 44 U/L (38-126) 11/26/24 09:40
Most recent labs reviewed.
Micro Results:
11/27/24 01:26 Blood Culture - Preliminary
Blood/Venous No Growth in 48 hours- Final report to follow
11/27/24 01:26 Blood Culture - Preliminary
Blood/Venous No Growth in 48 hours- Final report to follow
11/26/24 11:37 Wound Culture - Final
Ulcer Pseudomonas aeruginosa
Streptococcus agalactiae
Gram Stain - Final
11/26/24 11:37 Blood Culture - Preliminary
Blood/Venous No Growth in 48 hours- Final report to follow
11/26/24 11:37 Blood Culture - Preliminary
Blood/Venous No Growth in 48 hours- Final report to follow
11/27/24 04:20 Urine Culture - Final
Urine No Significant Growth
11/26/24 CT LLE: Small defect in the soft tissues of the anterior mid to lower leg corresponding to the history of a alonso wound. No drainable fluid collection. Diffuse subcutaneous edema about the lower leg, ankle, and foot. No radiopaque foreign
body or soft tissue gas. Trace knee joint effusion. No Bowden's cyst. No significant ankle joint effusion. The visualized subcutaneous soft tissues and musculature are otherwise unremarkable by CT.
Care Review
Plan reviewed with: Physician (Dr. Amie Ann)
--- NOTE | 2024-11-29 10:06 | W.PN.HOSP.TC ---
Today's Communication/Plan
-
monitor dizziness off Zyvox
continue Levaquin per ID
Assessment / Plan
Assessment / Plan
Assessment:
Sepsis due to LLE cellulitis due to puncture wound
- s/p sepsis protocol IVF
- completed Keflex course (developed allergic symptoms)
- Vanco in ER led to pruritus
- continue Levaquin per ID
- wound culture with pseudomonas
- Zyvox stopped due to possible dizziness
- CT: Small defect in the soft tissues of the anterior mid to lower leg corresponding to the history of a alonso wound. no drainable fluid collection.
- GS evaluated, no surgical plans. continue wound care
Afib, presumed paroxysmal: cont Eliquis
COPD
HLD
Spinal stenosis
Neuropathy
JESSICA
Bilateral LE lymphedema, compliant with compression pumps
Venous insufficiency h/x ablation
- continue Lasix
Essential HTN: Hold ARB. Continue Lasix
Morbid obesity due to excess calories
DVT ppx: Eliquis
Code: Full
Anticipated Discharge: Within 24 hours
Subjective/Interval History
-
Date of Service: November 29, 2024
dizziness possibly related to Linezolid - that was discontinued this AM
otherwise no complaints
Objective Data
-
Labs:
Laboratory Results
11/29/24
05:57
WBC 7.9
Hgb 12.5 L
Hct 36.8 L
Plt Count 239
Sodium 139
Potassium 4.2
Chloride 109 H
Carbon Dioxide 27
BUN 17
Creatinine 0.9
Glucose 106 H
Calcium 8.4
Vital Signs:
Vital Signs
Temp Pulse Resp BP Pulse Ox
98.3 F 62 20 134/79 95
11/29/24 07:31 11/29/24 07:31 11/29/24 07:31 11/29/24 07:31 11/29/24 07:31
I&O
11/28/24 11/29/24 11/30/24
06:59 06:59 06:59
Intake Total 720 / 720 840 / 840
Balance 720 / 720 840 / 840
Physical Exam
-
General: No Apparent Distress
HEENT: Normocephalic and Atraumatic
Respiratory: Negative Wheezes
Cardiac: Regular Rhythm and S1/S2
GI: Soft
Genito-urinary: No Costovertebral Tender
Musculoskeletal: Other (Edema (LLE 2+ edema) and Erythema (Erythema ankle to thigh now mild, receding))
Neuro: AO x 3
Psych: Calm
Data Reviewed
-
Total Time Spent with Patient (in minutes): 44
Labs: Labs Reviewed by me
[2024-11-29 10:55] VITALS: BP 120/80; BP 122/80; BP 129/83; PULSE 62; PULSE 64; PULSE 68
--- NOTE | 2024-11-29 11:36 | CM ---
Chart reviewed and patient is for possible discharge tomorrow per physician, to home with [facility], [facility] liaison contacted.
Plan; Home with spouse and [facility].
[2024-11-29 15:03] VITALS: BP 111/77
[2024-11-29] MEDS: SANTYL OINTMENT 1 APPLIC TOPICAL (17:40)
[2024-11-29] MEDS: LEVAQUIN 750 MG PO (19:33)
[2024-11-29 19:43] VITALS: BP 111/78
[2024-11-29 23:22] VITALS: BP 132/79
[2024-11-30 03:20] VITALS: BP 134/80
[2024-11-30] MEDS: ELIQUIS 5 MG PO (06:01)
[2024-11-30 07:30] VITALS: BP 144/87
[2024-11-30 08:22] LABS: Hematocrit 36.3 % (39.0-52.0); Hemoglobin 12.5 g/dL (13.0-18.0); Mean Corp Hgb Conc. 34.4 g/dL (33.0-37.0); Mean Corpuscular Hgb 30.5 pg (27.0-31.0); Mean Corpuscular Volume 88.5 fL (80.0-94.0); Mean Platelet Volume 9.9 fL (7.4-10.4); Platelet Count 241 10^3/uL (130-400); Red Cell Dist. Width 14.2 % (11.5-14.5); White Blood Cell Count 7.2 10^3/uL (4.8-10.8)
--- NOTE | 2024-11-30 08:51 | W.PN.ID1 ---
Date of Service
Date of Service: November 30, 2024
Today's Communication
- Continue Levofloxacin 750mg po q24h (d5 appropriate abx) through 12/05/24.
Trend QTc today.
Assessment / Plan
# Acute LLE cellulitis, resolving
# Recent hx of trauma/puncture wound to LLE
# New orthostatic dizziness
# s/p Sepsis with fever and leukocytosis - resolved
# Allergy to cephalexin (skin peeling on palms) and IV Vancomycin (infusion site pruritic rash streaking up arm)
# BLE lymphedema
- Wound cx: Pseudomonas, Group B strep
- blood cx's negative to date
- Dizziness possible due to linezolid -dc'd on day 4 (11/29)
- Sxs improving
- Continue Levofloxacin 750mg po q24h (d5 appropriate abx) through 12/05/24.
Trend QTc today.
- Continue compression
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
COPD
Hypertension
Paroxysmal atrial fibrillation
HLD
Spinal stenosis
Neuropathy
JESSICA
Class III obesity BMI 46
Bilateral LE lymphedema, compliant with compression pumps
Venous insufficiency h/x ablation
Left knee meniscal repair
anal fistulotomy and endorectal advancement flap
Chief Complaint
-: Cellulitis
Subjective / Review of Systems
Dizziness upon standing improving.
Vital Signs / Physical Exam
Vital Signs
Vital Signs
Temp Pulse Resp BP Pulse Ox
97.3 F 62 18 144/87 96
11/30/24 07:30 11/30/24 07:30 11/30/24 07:30 11/30/24 07:30 11/30/24 07:30
Physical Exam
Constitutional: No Acute Distress
Cardiovascular: Irregular Rate and S1/S2
Pulmonary: Clear
Gastrointestinal: Soft, Non Tender and Non Distended
Genito-Urinary: Negative CVA Tenderness
Extremities: Edema (LLE edema improving) and Erythema (Erythema ankle to thigh resolving)
Wound: Other (Left distal leg wound stable)
Neurological: AO x 3
Objective Data
Lab Data
Lab Results
11/30/24 07:51
Estimated Creat Clear 104 ml/min 11/29/24 05:57
Lactic Acid Cancelled 11/27/24 07:10
Total Bilirubin 0.8 mg/dl (0.2-1.3) 11/26/24 09:40
AST 32 U/L (17-59) 11/26/24 09:40
ALT 25 U/L (0-50) 11/26/24 09:40
Alkaline Phosphatase 44 U/L (38-126) 11/26/24 09:40
Most recent labs reviewed.
Micro Results:
11/27/24 01:26 Blood Culture - Preliminary
Blood/Venous No Growth in 72 hours- Final report to follow
11/27/24 01:26 Blood Culture - Preliminary
Blood/Venous No Growth in 72 hours- Final report to follow
11/26/24 11:37 Blood Culture - Preliminary
Blood/Venous No Growth in 72 hours- Final report to follow
11/26/24 11:37 Blood Culture - Preliminary
Blood/Venous No Growth in 72 hours- Final report to follow
11/26/24 11:37 Wound Culture - Final
Ulcer Pseudomonas aeruginosa
Streptococcus agalactiae
Gram Stain - Final
11/27/24 04:20 Urine Culture - Final
Urine No Significant Growth
11/26/24 CT LLE: Small defect in the soft tissues of the anterior mid to lower leg corresponding to the history of a alonso wound. No drainable fluid collection. Diffuse subcutaneous edema about the lower leg, ankle, and foot. No radiopaque foreign
body or soft tissue gas. Trace knee joint effusion. No Bowden's cyst. No significant ankle joint effusion. The visualized subcutaneous soft tissues and musculature are otherwise unremarkable by CT.
Care Review
Plan reviewed with: Physician (Dr. Amie Ann)
[2024-11-30 09:37] VITALS: BP 108/60; BP 99/63; PULSE 73; PULSE 84
[2024-11-30 09:38] LABS: Blood Urea Nitrogen 15 mg/dl (9-20); Calcium 8.6 mg/dl (8.4-10.2); Carbon Dioxide 26 mmol/L (22-30); Chloride 110 mmol/L (98-107); Estimated Creatinine Clearance 104 ml/min; Glucose 106 mg/dl (70-99); Potassium 4.5 mmol/L (3.5-5.1); Sodium 139 mmol/L (135-145); eGFR > 60.00
--- NOTE | 2024-11-30 11:27 | W.PN.HOSP.TC ---
Today's Communication/Plan
-
dc home/VN today
Assessment / Plan
Assessment / Plan
Assessment:
Sepsis due to LLE cellulitis due to puncture wound
- s/p sepsis protocol IVF
- completed Keflex course (developed allergic symptoms)
- Vanco in ER led to pruritus
- continue Levaquin per ID through 12/05
- wound culture with pseudomonas
- Zyvox stopped due to possible dizziness
- CT: Small defect in the soft tissues of the anterior mid to lower leg corresponding to the history of a alonso wound. no drainable fluid collection.
- GS evaluated, no surgical plans. continue wound care
Afib, presumed paroxysmal: cont Eliquis
COPD
HLD
Spinal stenosis
Neuropathy
JESSICA
Bilateral LE lymphedema, compliant with compression pumps
Venous insufficiency h/x ablation
- continue Lasix
Essential HTN: Hold ARB. Continue Lasix
Morbid obesity due to excess calories
DVT ppx: Eliquis
Code: Full
More than 30 minutes spent in discharge including
Final examination of the patient
Summarizing hospital stay
Instructions for continuing care to all relevant caregivers
Preparation of discharge records, prescriptions, and referral forms
Total time spent (in minutes):41
Anticipated Discharge: Today
Subjective/Interval History
-
Date of Service: November 30, 2024
resting comfortably, no complaints at present
Objective Data
-
Labs:
Laboratory Results
11/30/24
07:51
WBC 7.2
Hgb 12.5 L
Hct 36.3 L
Plt Count 241
Sodium 139
Potassium 4.5
Chloride 110 H
Carbon Dioxide 26
BUN 15
Creatinine 0.9
Glucose 106 H
Calcium 8.6
Vital Signs:
Vital Signs
Temp Pulse Resp BP Pulse Ox
97.3 F 62 18 144/87 96
11/30/24 07:30 11/30/24 07:30 11/30/24 07:30 11/30/24 07:30 11/30/24 08:00
I&O
11/29/24 11/30/24 12/01/24
06:59 06:59 06:59
Intake Total 840 / 840 1440 / 1440
Balance 840 / 840 1440 / 1440
Physical Exam
-
General: No Apparent Distress
HEENT: Normocephalic and Atraumatic
Respiratory: Negative Wheezes
Cardiac: Regular Rhythm and S1/S2
GI: Soft and Nontender
Genito-urinary: No Costovertebral Tender
Neuro: AO x 3
Psych: Calm
Data Reviewed
-
Total Time Spent with Patient (in minutes): 41
Labs: Labs Reviewed by me
--- NOTE | 2024-11-30 11:29 | W.DS.TRANS ---
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
-
Discharge Instructions:
Discharge Diagnosis/Procedures sepsis from LLE wound/cellulitis
Diet Regular
Activity As tolerated
Other Services VN
Instructions:
Stand-Alone Forms:
Changes to Home Medications: No
Discharge Medications:
DC Medications w/original date entered in [employer]
apixaban 5 mg tablet (Eliquis) 5 mg PO BID@0700,1800 Blood Clot Prevention/Tx 11/26/24
furosemide 40 mg tablet 80 mg PO BID@0700,1800 Fluid Retention/Swelling 11/26/24
losartan 100 mg tablet 100 mg PO DAILY Blood Pressure 11/26/24
mupirocin 2 % topical ointment 1 applic topical BID INFECTION PREVENTION 11/26/24
therapeutic multivitamin 1 tab PO DAILY Supplement 11/26/24
levofloxacin 750 mg tablet 750 mg PO Q24H #5 tabs 11/30/24
Home Medication Changes
Pending Results: No
Total time spent discharging patient (in min): 41
--- NOTE | 2024-11-30 11:33 | CM ---
IMM completed and placed on chart, plan is for patient to return to home today with [facility].
Plan; Home with [facility].
[2024-11-30 12:00] VITALS: BP 165/93
== END 2024-11-30 12:37 | disposition home health service (06) | DRG 872 ==
LOC: 4 WEST ACU 14:46
PROVIDERS: Student in an Organized Health Care Education/Training Program; ADMITTING PHYSICIAN Internal Medicine; ATTENDING PHYSICIAN Internal Medicine; CONSULT PHYSICIAN Internal Medicine Infectious Disease; CONSULT PHYSICIAN Surgery; EMERGENCY PHYSICIAN Emergency Medicine; FAMILY PHYSICIAN Physician Assistant Medical
DX: A41.9 Sepsis, unspecified organism (principal); L03.116 Cellulitis of left lower limb; L03.115 Cellulitis of right lower limb; Z68.42 Body mass index [BMI] 45.0-49.9, adult; R65.20 Severe sepsis without septic shock; I48.0 Paroxysmal atrial fibrillation; J44.9 Chronic obstructive pulmonary disease, unspecified; E66.813 Obesity, class 3; E78.00 Pure hypercholesterolemia, unspecified; I10 Essential (primary) hypertension; Z87.891 Personal history of nicotine dependence; Z79.01 Long term (current) use of anticoagulants; Z79.899 Other long term (current) drug therapy
CPT/HCPCS: 73701; 80048; 80053; 81003; 81015; 83605; 85025; 85027; 87040; 87070; 87071; 87077; 87086; 87147; 87186; 87205; 93005; 94660; 96361; 96365; 96366; 96367; 97162; 97166; 97530; 99284; J2185; Q9967

== ENCOUNTER 2024-12-09 06:16 | Outpatient (RCR) | payer MEDICARE, BC, SELFPAY | END 2024-12-09 23:59 | disposition home or self-care (01) | LOC: RPT 06:16 | PROVIDERS: ATTENDING PHYSICIAN Physician Assistant Medical | DX: H81.12 Benign paroxysmal vertigo, left ear (principal); Z73.6 Limitation of activities due to disability | CPT/HCPCS: 97112; 97162 ==

== ENCOUNTER → 2024-12-12 12:26 | Outpatient (REF) | payer MEDICARE, BC, SELFPAY | LOC: WOUND 12:26 | PROVIDERS: ATTENDING PHYSICIAN Surgery; FAMILY PHYSICIAN Physician Assistant Medical | DX: L97.222 Non-pressure chronic ulcer of left calf with fat layer exposed (principal); I73.9 Peripheral vascular disease, unspecified; I89.0 Lymphedema, not elsewhere classified; E66.01 Morbid (severe) obesity due to excess calories; J44.9 Chronic obstructive pulmonary disease, unspecified; Z87.891 Personal history of nicotine dependence | CPT/HCPCS: 11042; 99204 ==

== ENCOUNTER → 2024-12-13 08:50 | Outpatient (REF) | payer MEDICARE, BC, SELFPAY | LOC: RAD 08:50 | PROVIDERS: ATTENDING PHYSICIAN Surgery; FAMILY PHYSICIAN Physician Assistant Medical | DX: L97.222 Non-pressure chronic ulcer of left calf with fat layer exposed (principal); I73.9 Peripheral vascular disease, unspecified | CPT/HCPCS: 93922 ==

== ENCOUNTER → 2024-12-20 09:03 | Outpatient (REF) | payer MEDICARE, BC, SELFPAY | LOC: WOUND 09:03 | PROVIDERS: ATTENDING PHYSICIAN Surgery; FAMILY PHYSICIAN Physician Assistant Medical | DX: L97.222 Non-pressure chronic ulcer of left calf with fat layer exposed (principal); I73.9 Peripheral vascular disease, unspecified; I89.0 Lymphedema, not elsewhere classified; E66.01 Morbid (severe) obesity due to excess calories; J44.9 Chronic obstructive pulmonary disease, unspecified; Z87.891 Personal history of nicotine dependence | CPT/HCPCS: 99213 ==

== ENCOUNTER → 2024-12-29 07:53 | Outpatient (REF) | payer MEDICARE, BC, SELFPAY | LOC: WOUND 07:53 | PROVIDERS: ATTENDING PHYSICIAN Surgery; FAMILY PHYSICIAN Physician Assistant Medical | DX: L97.222 Non-pressure chronic ulcer of left calf with fat layer exposed (principal); I73.9 Peripheral vascular disease, unspecified; I89.0 Lymphedema, not elsewhere classified; E66.01 Morbid (severe) obesity due to excess calories; J44.9 Chronic obstructive pulmonary disease, unspecified; Z87.891 Personal history of nicotine dependence | CPT/HCPCS: 11042 ==

== ENCOUNTER → 2025-01-12 10:30 | Outpatient (REF) | payer MEDICARE, BC, SELFPAY | LOC: WOUND 10:30 | PROVIDERS: ATTENDING PHYSICIAN Surgery; FAMILY PHYSICIAN Physician Assistant Medical | DX: L97.222 Non-pressure chronic ulcer of left calf with fat layer exposed (principal); I73.9 Peripheral vascular disease, unspecified; I89.0 Lymphedema, not elsewhere classified; E66.01 Morbid (severe) obesity due to excess calories; J44.9 Chronic obstructive pulmonary disease, unspecified; Z87.891 Personal history of nicotine dependence | CPT/HCPCS: 11042 ==

== ENCOUNTER 2025-01-15 14:54 | Inpatient (IN) | payer MEDICARE, BC, SELFPAY ==
[2025-01-15] VITALS (7 sets, daily range): BP systolic 96–137; BP diastolic 53–112; PULSE 2–84; BMI 44.5; BMI 39.8
--- NOTE | 2025-01-15 12:37 | ED.GENMED ---
History of Present Illness
General
Chief Complaint: Skin Problem
Time Seen by Provider: 01/15/25 12:07
History of Present Illness
History of Present Illness:
79-year-old male presents to the ER for further treatment of pain and swelling to his right lower extremity. Patient states that on November 13 he experienced a puncture wound to the anterior surface of his right lower leg. He has been following with
wound care. He has been having packing changes and had been on antibiotics earlier, including a hospitalization due to cellulitis. He is not currently on antibiotics. He was seen at the wound center 2 days ago and had dressing change but has
subsequently developed a blister adjacent to the puncture site which has ruptured. and patient noted worsening redness along with decreased appetite, fatigue and a temperature of 101 last night. Patient denies any significant pain at time of
evaluation. He did have emesis this morning. He denies any urinary discomforts but did have some diarrhea today.
Past History
Past History
ED Past Medical History: HTN, Other (morbid obesity) and Other (OA, B LE lymphedema)
ED Past Surgical History: Other (rectal/anal fissure surgery)
Social History
Tobacco: Former smoker
Alcohol: Occasional
Drug: None
Personal:
Living: with family
Employment: Retired
Family History
Family History: Other (Noncontributory)
Phy Exam
Physical Exam
Physical Exam:
Patient is awake, alert, obese, mild conversational dyspnea when laying supine, mucous membranes moist, heart regular rate and rhythm without murmurs or ectopy, lungs are clear to auscultation without wheezes rales or rhonchi, conjunctiva pink,
abdomen is soft, obese, nontender, right lower extremity with extensive induration and erythema from dorsal foot to mid thigh with streaking along the anterior medial upper thigh, there is a 1 cm area of skin opening with packing present in the
anterior surface of the right lower leg, there is a ruptured vesicle adjacent to the area of packing, no crepitance, no ecchymosis, 2+ DP pulses present symmetric bilateral lower extremities, GCS is 15
Course
Orders/Labs/Results
Orders:
Orders
01/15/25 12:32
Electrocardiogram (*1) Urgent
Reason for Study: Other
Other Reason for Exam: sepsis
Cardiac Monitoring- Treatment ONCE
EKG- Treatment ONCE
IV Insert/Care/Rem.- Treatment PRN
Piperacillin/Tazo 4.5 Gram [Zosyn] 4.5 gram in 100 ml IV NOW
Pulse Ox/cont/shift [RESP] Urgent
Quantity: 1
01/15/25 13:03
Ipratropium/Albuterol Sulfate [Duoneb] 3 ml .ROUTE .ST-MED ONE
01/15/25 13:17
Blood Culture Q30M
SAAD Source: Blood/Venous
Specimen Description:
01/15/25 13:18
Complete Blood Count/With Diff Urgent
Comprehensive Metabolic Panel Urgent
Lactic Acid Q4H
Comment: CANCEL 2nd LACTIC ACID IF 1st LACTIC ACID IS LESS THAN 2
Manual Differential Urgent
Troponin I Urgent
Urinalysis Reflex To Culture Urgent
Date Specimen was Collected: 01/15/25
Time Specimen was Collected: 12:37
Urine Microscopic Reflex Cult Urgent
Urine Culture Urgent
SAAD Source: U
Specimen Description:
Date Specimen was Collected: 01/15/25
Time Specimen was Collected: 12:37
01/15/25 13:52
Blood Culture Q30M
SAAD Source: Blood/Venous
Specimen Description:
01/15/25 14:45
Admit/Transfer Patient As Directed
Co-Sign Provider:
Level of Care: Inpatient admission
Assign to:: Medical/Surgical
Physician / Group: [email or web address]
Diagnosis: Sepsis due to RLE cellulitis
Reason for Hospitalization: Sepsis due to RLE cellulitis
Expected length of stay greater than two midnights?: Yes
ELOS- Estimated Length of Stay in days: 5
I certify the patient meets the requirements for IP care: Yes
01/15/25 14:47
Code Status As Directed
Resuscitation Status: Full Code
01/15/25 16:45
Lactic Acid Q4H
Comment: CANCEL 2nd LACTIC ACID IF 1st LACTIC ACID IS LESS THAN 2
Abnormal Lab Results
01/15/25
13:18
WBC 25.8 H 10^3/uL
(4.8-10.8)
RBC 4.42 L 10^6/uL
(4.70-6.10)
Abs Neuts (Manual) 24.2 H 10^3/uL
(1.4-6.5)
Segmented Neutrophils 83 H %
(42-75)
Band Neutrophils 11 H %
(0-3)
Lymphocytes (Manual) 3 L %
(20-51)
BUN 30 H mg/dl
(9-20)
Glucose 131 H mg/dl
(70-99)
Lactic Acid 2.4 H mmol/L
(0.7-2.0)
Ur Occult Blood Reflex 1+ A
(Negative)
Leukocyte Esterase Rfl 1+ A
(Negative)
Urine RBC 3-6 A /HPF
(0-2)
Urine Albumin (Reflex) 1+ A
(Neg - Trace)
01/15/25 13:18
01/15/25 13:18
White blood count significantly elevated, blood sugar mildly elevated, creatinine preserved
Vital Signs
Initial and Last Documented VS:
Initial Vital Signs
Temp Pulse Resp BP Pulse Ox
99.1 F 95 16 102/64 96
01/15/25 10:02 01/15/25 10:02 01/15/25 10:02 01/15/25 10:02 01/15/25 10:02
Last Documented Vital Signs
Temp Pulse Resp BP Pulse Ox
98.9 F 86 21 101/58 99
01/15/25 12:55 01/15/25 13:30 01/15/25 13:30 01/15/25 13:00 01/15/25 13:30
MDM/Problems Addressed
Differential Diagnosis Includes:
Differential diagnosis to consider but not limited to cellulitis, failure to improve on appropriate outpatient therapy, deep space infection, sepsis, bacteremia along with other etiologies considered
Chronic conditions affecting care:
Lymphedema, obesity, obstructive sleep apnea
Comment
Comment:
I reviewed prior hospitalization record given prior medication allergies, in particular record dated 11/26/2024-patient tolerated Zosyn during previous hospitalization.
*Pulse Oximetry
SaO2: 96
Oxygen Mode of Delivery: Room air
Patient hypoxic: no
*EKG
Interpreted by ED Provider?: Yes (I have reviewed and interpreted rhythm strip showing atrial fibrillation with right bundle branch block and a controlled rate. I independently viewed and interpreted twelve-lead EKG showing A-fib with a rate of 86,
normal axis, right bundle branch block, nonspecific T wave changes without evidence )
EKG Intrepretation Date: 01/15/25
EKG Intrepretation Time: 13:18
*Critical Care Note
Total Time (30-74mins, 75-104mins- exclusive of procedures): Not Applicable
Update Note
Update Note:
I discussed with patient and present at bedside need for admission given failure to improve on appropriate outpatient treatment. Broad-spectrum antibiotics ordered at time of initial treatment. Once test results available, I reviewed this
information with the hospitalist, Dr. Elliott, who accepts patient for admission for further care and treatment of acute cellulitis
ED Attending Note
-
Portions of this chart may have been created with voice recognition software.� Occasional wrong word or��sound alike� substitutions may have occurred due to the inherent limitations of voice recognition software.
Discharge Plan
Departure
Patient Disposition: Admit
Admit to: Telemetry
Presentation/result/management discussed w/ accepting MD/DO: Hospitalist
Discharge Problem:
Cellulitis
Interventions
Interventions:
*Risk Screen - Suicide Last Done: 01/15/25 12:55
*General Assessment Last Done: 01/15/25 12:55
*Neglect/Abuse Screening Last Done: 01/15/25 12:55
*ED- Fall Risk Assessment Last Done: 01/15/25 12:55
*ED COVID-19 Vaccine History Last Done: 01/15/25 16:14
*Nursing Disposition Last Done: 01/15/25 16:14
ED-Skin Assessment Last Done: 01/15/25 12:55
[2025-01-15] MEDS: ZOSYN 100 IV (13:21)
[2025-01-15 13:49] LABS: ALT (SGPT) 22 U/L (0-50); AST (SGOT) 27 U/L (17-59); Albumin 3.9 g/dl (3.5-5.0); Alkaline Phosphatase 47 U/L (38-126); Blood Urea Nitrogen 30 mg/dl (9-20); Calcium 8.5 mg/dl (8.4-10.2); Carbon Dioxide 26 mmol/L (22-30); Chloride 101 mmol/L (98-107); Estimated Creatinine Clearance 71 ml/min; Glucose 131 mg/dl (70-99); Potassium 3.7 mmol/L (3.5-5.1); Sodium 136 mmol/L (135-145); Total Protein 7.0 g/dl (6.3-8.2); eGFR 55.19
[2025-01-15 13:59] LABS: Troponin I < 0.012 ng/ml
[2025-01-15 14:01] LABS: Hematocrit 39.4 % (39.0-52.0); Hemoglobin 13.6 g/dL (13.0-18.0); Mean Corp Hgb Conc. 34.5 g/dL (33.0-37.0); Mean Corpuscular Volume 89.1 fL (80.0-94.0); Platelet Count 214 10^3/uL (130-400); Red Cell Dist. Width 14.5 % (11.5-14.5)
--- NOTE | 2025-01-15 14:35 | HPS.HSE ---
Family Physician
-
Family Physician: Blaise Lizarraga
Chief Complaint
-
pain and swelling to his right lower extremity.
History of Present Illness
HPI
79M Morbidly obese, DX: sepsis from LLE wound/cellulitis , Bilateral LE lymphedema, seen at ER:
- for further treatment of pain and swelling to his right lower extremity.
- on November 13 he experienced a puncture wound to the anterior surface of his right lower leg.
- has been following with wound care.
- He has been having packing changes and had been on antibiotics earlier, including a hospitalization due to cellulitis. He is not currently on antibiotics.
- was seen at the wound center 2 days ago and had dressing change but has subsequently developed a blister adjacent to the puncture site which has ruptured.
- and patient noted worsening redness along with decreased appetite, fatigue and a temperature of 101 last night.
Patient denies any significant pain at time of evaluation. He did have emesis this morning. He denies any urinary discomforts but did have some diarrhea today.
Medical History
Past Medical History
Past Medical History: Reports Other (as per HPI)
Past Surgical History: Reports Other (N/A)
Social History
Tobacco: Former Smoker
Alcohol: None
Drug: None
Family History
Family History: Not pertinent
Allergies / Home Medications
Allergies reflects when Allergies were last updated in [facility].
Home Medications with original date entered in [facility]
Allergy/Medication List:
Allergies
Allergy/AdvReac Type Severity Reaction Status Date / Time
cephalexin [From Keflex] Allergy itching, Verified 11/26/24 09:33
skin
peeling
latex Allergy Itching Verified 11/26/24 09:33
Home Medications
apixaban 5 mg tablet (Eliquis) 5 mg PO BID@0700,1800 11/26/24
furosemide 40 mg tablet 80 mg PO BID@0700,1800 11/26/24
losartan 100 mg tablet 100 mg PO DAILY 11/26/24
mupirocin 2 % topical ointment 1 applic topical BID 11/26/24
therapeutic multivitamin 1 tab PO DAILY 11/26/24
Review of Systems
-
A 12 point ROS was completed and negative except as noted: Yes
Constitutional: Reports No Symptoms
Physical Exam
Vital Signs
Vital Signs
Temp Pulse Resp BP Pulse Ox
98.9 F 86 21 101/58 99
01/15/25 12:55 01/15/25 13:30 01/15/25 13:30 01/15/25 13:00 01/15/25 13:30
Physical Exam
General: Well Developed, Well Nourished, No Apparent Distress and Morbidly Obese
HEENT: NormoCephalic, Moist mucous membranes and Atraumatic
Respiratory: Clear
Cardiac: S1/S2 and Regular Rhythm; No Murmur or Rub
GI: Soft, Non Tender, Non Distended and Normal Bowel Sounds; No Organomegaly
Rectal: Deferred by Provider
Musculoskeletal: No Clubbing, No Cyanosis and Other (Rt HARLEY cellulitis with punctured wound )
Skin: Rash and Other (Bilateral LE lymphedema)
Neuro: Nonfocal/grossly intact
Hematologic/Lymphatic: Other
Psych: Calm
Laboratory Results
-
01/15/25 13:18
01/15/25 13:18
Laboratory Results
Lactic Acid 2.4 mmol/L (0.7-2.0) H 01/15/25 13:18
Total Bilirubin 1.0 mg/dl (0.2-1.3) 01/15/25 13:18
AST 27 U/L (17-59) 01/15/25 13:18
ALT 22 U/L (0-50) 01/15/25 13:18
Alkaline Phosphatase 47 U/L (38-126) 01/15/25 13:18
Troponin I < 0.012 ng/ml 01/15/25 13:18
Data Reviewed
-
Lab Data: Labs Reviewed by me
Impression/Plan
-
Vital Signs
Temp Pulse Resp BP Pulse Ox
98.9 F 86 21 101/58 99
01/15/25 12:55 01/15/25 13:30 01/15/25 13:30 01/15/25 13:00 01/15/25 13:30
Abnormal Lab Results
01/15/25
13:18
WBC 25.8 H
RBC 4.42 L
BUN 30 H
Glucose 131 H
Lactic Acid 2.4 H
ASSESSMENT & PLAN
Pending Rx reconciliation
Sepsis due to RLE cellulitis due to puncture wound : potential Group A step vs Staph cellulitis
Hypotensive, WCC > 10, LA > 2.4
- HX allergic reaction to Keflex prior to admission and vancomycin in the ER
- HX of tolerance to PCN in the past and tolerated Zosyn
- start Zosyn.
- septic IVF maintainable
- follow BCxs
- trend leukocytosis/fever curve
Bilateral LE lymphedema, compliant with compression pumps
Venous insufficiency h/x ablation
- continue Lasix
HX JESSICA use BiPAP HS ( own)
Morbid obesity due to excess calories
- orderd for BiPAP to use own
Other problems:
Afib, presumed paroxysmal: cont Eliquis
Essential HTN: Hold ARB/lasix
DVT Px: Eliquis
Full code
IP MS
[2025-01-15 14:43] LABS: Absolute Neutrophils -Man Diff 24.2 10^3/uL (1.4-6.5); Platelets Checked YES
[2025-01-15 14:45] LABS: Normal RBC Morphology Yes
[2025-01-15 14:46] LABS: Total Cells Counted 100
[2025-01-15 15:14] LABS: Urine Character Clear (Clear)
--- NOTE | 2025-01-15 16:14 | EDRN ---
this RN called the receiving unit and notified them that paper report was going to be tubed up
[2025-01-15] MEDS: COZAAR 100 MG PO (17:42)
[2025-01-15] MEDS: NSS 1000 IV (17:43)
[2025-01-15] MEDS: ZOSYN 50 IV (20:43)
[2025-01-15] MEDS: ELIQUIS 5 MG PO (20:43)
[2025-01-16] MEDS: ZOSYN 50 IV ×4 (02:40→19:35)
[2025-01-16 05:43] VITALS: PULSE 2
[2025-01-16 07:50] VITALS: BP 121/69
[2025-01-16] MEDS: LASIX 80 MG PO ×2 (08:31→17:08)
[2025-01-16] MEDS: ELIQUIS 5 MG PO ×2 (08:31→19:35)
[2025-01-16 08:40] LABS: Hematocrit 38.8 % (39.0-52.0); Hemoglobin 13.4 g/dL (13.0-18.0); Mean Corp Hgb Conc. 34.5 g/dL (33.0-37.0); Mean Corpuscular Volume 88.4 fL (80.0-94.0); Platelet Count 194 10^3/uL (130-400); Red Cell Dist. Width 14.7 % (11.5-14.5)
--- NOTE | 2025-01-16 08:57 | W.PN.HOSP.TC ---
Today's Communication/Plan
-
IV ABx
Consult ID
Stop IVF
Assessment / Plan
Assessment / Plan
Physical Exam
General: Well Developed, Well Nourished, No Apparent Distress and Morbidly Obese
HEENT: Normocephalic, Moist mucous membranes and Atraumatic
Respiratory: Clear
Cardiac: S1/S2
GI: Soft, Non Tender, Non Distended and Normal Bowel Sounds, obese.
Rectal: NO bleeding.
Musculoskeletal: No Clubbing, No Cyanosis and Other (Rt HARLEY cellulitis, redness above knee to ankle, with punctured wound )
Skin: Rash and Other (Bilateral LE lymphedema)
Neuro: AAOX 3, Followed commands, Nonfocal/grossly intact
Psych: Calm
# Sepsis POA with lactic acidosis, due to RLE cellulitis due to puncture wound : potential Group A step vs Staph cellulitis
not septic shock, mild hypotension on admission but not c/w shock
WCC > 10, LA > 2.4. Normal lactic acid now
- HX allergic reaction to Keflex prior to admission and vancomycin in the ER
- HX of tolerance to PCN in the past and tolerated Zosyn
- started Zosyn.
- septic IVF maintainable
- follow BCxs
- trend leukocytosis/fever curve appreciate ID consul,
Bilateral LE lymphedema, compliant with compression pumps
Venous insufficiency h/x ablation
- continue Lasix
HX JESSICA use BiPAP HS ( own)
Morbid obesity due to excess calories
- ordered for BiPAP to use own
# Morbid obesity, BMI 39,
Check hemoglobin A1c
Discussed with patient about his weight, he is aware of his unhealthy weight and reported that inability to perform exercise contributing and reports(I do not eat a lot)
Other problems:
Afib, presumed paroxysmal: cont Eliquis
Essential HTN: Hold ARB/lasix
DVT Px: Eliquis
Total time spent to see the patient, examine the patient, review data and lab result, discuss treatment plan with patient, nursing staff around 55 minutes
Anticipated Discharge: > 48 hours
Subjective/Interval History
-
Date of Service: January 16, 2025
Objective Data
-
Labs:
Laboratory Results
01/16/25
08:18
WBC 18.9 H
Hgb 13.4
Hct 38.8 L
Plt Count 194
Sodium Pending
Potassium Pending
Chloride Pending
Carbon Dioxide Pending
BUN Pending
Creatinine Pending
Glucose Pending
Calcium Pending
Total Bilirubin Pending
AST Pending
ALT Pending
Alkaline Phosphatase Pending
Vital Signs:
Vital Signs
Temp Pulse Resp BP Pulse Ox
98.1 F 91 18 121/69 97
01/16/25 07:50 01/16/25 07:50 01/16/25 07:50 01/16/25 07:50 01/16/25 07:50
I&O
01/15/25 01/16/25 01/17/25
06:59 06:59 06:59
Intake Total 1240 / 1240
Balance 1240 / 1240
[2025-01-16 09:41] LABS: ALT (SGPT) 22 U/L (0-50); AST (SGOT) 30 U/L (17-59); Albumin 3.7 g/dl (3.5-5.0); Alkaline Phosphatase 54 U/L (38-126); Blood Urea Nitrogen 35 mg/dl (9-20); Calcium 8.3 mg/dl (8.4-10.2); Carbon Dioxide 26 mmol/L (22-30); Chloride 100 mmol/L (98-107); Estimated Creatinine Clearance 62 ml/min; Glucose 138 mg/dl (70-99); Potassium 3.8 mmol/L (3.5-5.1); Sodium 135 mmol/L (135-145); Total Protein 6.7 g/dl (6.3-8.2); eGFR 50.49
--- NOTE | 2025-01-16 10:37 | VNURNOTE ---
Chart reviewed.� Patient is current with [facility] nursing.� Will continue to follow hospital course and DC plans.
--- NOTE | 2025-01-16 13:04 | WOUNDNOTE ---
WO RN note: Patient admitted with right leg cellulitis
See H&P for complete history.
PMH: Ex-smoker, bipatp, HTN, arthritis, lymphedema
Wound Location and type/assessment: Patient admitted with right leg cellulitis with puncture wound and adjacent open blister. Patient good historian and follows up at [facility]. Last visit was 01/12. Patient said wound occurred in November. The puncture
wound has erythema related to cellulitis. Periwound of both wounds are slightly macerated.
Appetite: Good
Pressure redistribution devices in place: [employer] Accumax, instructed on keep heels off-loaded and frequent repositioning.
Plan: Clean with with Vashe, apply no-sting barrier around wounds and pack puncture wound with mesalt ribbon and cover with dry dressing. May cover blister wound with adaptic and dry dressing. Confirmed order for compression with [employer]AL[employer]. Will confirm
orders with hospitalist and update nurse. Updated care plan and will follow as needed.
Note to case management of equipment requested for discharge:
Recommend follow up at wound care center upon discharge.
--- NOTE | 2025-01-16 13:57 | WOUNDNOTE ---
RIGHT LEG WOUNDS
--- NOTE | 2025-01-16 13:57 | WOUNDNOTE ---
RIGHT LEG WOUNDs
[2025-01-16 15:01] VITALS: BP 109/69
--- NOTE | 2025-01-16 15:34 | CM ---
Addendum entered by Charissa Beal 01/16/25 15:41:
PA is Soco Lizarraga and Pharmacy is [facility].
Original Note:
Lives with his in a 2 story home with elevator, B/B on . [employer] patient was independent with ADL's and ambulation. He has a BIPAP and motorized scooter. He is current with [facility] RN services. Discharge POC: Home with resumption of [facility].
--- NOTE | 2025-01-16 16:12 | CON.ID ---
Consultation
-
Date/Time Consultation Requested: January 16, 2025 0612
Date/Time Consultation Performed: January 16, 2025 1615
Requesting Provider: Dr. Silvia Jeffries
Performing Provider: Dr. Karine Smith
Reason for Consultation: Cellulitis
Chief Complaint / Past History
Chief Complaint
leg redness
History of Present Illness
79-year-old male with history of COPD, atrial fibrillation, venous insufficiency, bilateral lower extremity lymphedema who presented to the ED January 15 due to ruptured blister with redness and edema of the right leg. Patient is well-known to me who
was hospitalized from November 26 November 30 due to right lower extremity cellulitis after sustaining a wound when he bumped his alonso against the train model table. Culture grew Pseudomonas and group B strep. He received IV antibiotic the hospital then
transition to oral levofloxacin which he completed on December 05. Patient also has been going to the wound care center and he reports that the wound was getting smaller. After the last visit with the wound dressed, he noted discomfort around that
area. The next day when he changed the dressing, he noted a large blister. He took a shower and the blister ruptured. Yesterday his noted to right leg started to become redder. He also reports subjective fever and chills at home. He
therefore came to the ER. White count 25.8. No fever in the hospital. He was started on Zosyn. Patient reports he is compliant with the lymphedema pumps as well as Tubigrip. No further chills.
Past History
Additional Past Medical History:
COPD
Hypertension
Paroxysmal atrial fibrillation
HLD
Spinal stenosis
Neuropathy
JESSICA
Class III obesity BMI 40
Bilateral LE lymphedema, compliant with compression pumps
Venous insufficiency h/x ablation
Left knee meniscal repair
Anal fistulotomy and endorectal advancement flap
Allergy History:
adhesive Allergy (Verified 01/15/25 10:02)
Itching
cephalexin (From Keflex) Allergy (Verified 01/15/25 10:02)
itching, skin peeling
vancomycin Allergy (Verified 01/15/25 10:02)
Infusion site pruritic rash up the arm
Medications Reviewed: Yes
Current Antibiotics:
Zosyn
Social History
Tobacco: Former Smoker
Alcohol: None
Drug: None
Personal:
Family History
Family History: Not Pertinent
Review of Systems
Review of Systems
General: Fever, Chills and Change in Appetite
HEENT: Negative Sinus Problems, Headache or Pharyngitis
Cardiovascular: Negative Chest Pain
Respiratory: Negative Dyspnea or Cough
Gasteroenterology: Negative Nausea or Vomiting
Genital / Urological: Negative Dysuria or Flank Pain
Endocrine: Weakness
All systems: All other systems were reviewed and were negative
Vital Signs
Temp Pulse Resp BP Pulse Ox
97.4 F 94 17 109/69 96
01/16/25 15:01 01/16/25 15:01 01/16/25 15:01 01/16/25 15:01 01/16/25 15:01
Physical Exam
Physical Exam
Constitutional: No Acute Distress, Comfortable and Obese
Eyes: No Conjunctival Hemorrhage and Sclera Anicteric
Cardiovascular: Regular Rate and S1/S2
Pulmonary: Clear
Gastrointestinal: Soft, Non Tender, Non Distended and Normal Bowel Sounds
Extremities: Edema (Bilateral lower extremity lymphedema) and Erythema (Right lower extremity with pink erythema surrounding a ruptured blister superficial wound, and the previous puncture wound which looks smaller and dry.)
Neurological: AO x 3
Lab / Diagnostic Study Results
01/16/25 08:18
01/16/25 08:18
Total Counted 100 01/15/25 13:18
Abs Neuts (Manual) 24.2 10^3/uL (1.4-6.5) H 01/15/25 13:18
Segmented Neutrophils 83 % (42-75) H 01/15/25 13:18
Band Neutrophils 11 % (0-3) H 01/15/25 13:18
Lymphocytes (Manual) 3 % (20-51) L 01/15/25 13:18
Eosinophils (Manual) 1 % (0-6) 01/15/25 13:18
Lactic Acid Cancelled 01/16/25 05:11
Ur Squamous Epith Cells 3-5 /LPF (Few) 01/15/25 13:18
Microbiology Results
Micro:
01/15/25 13:52 Blood Culture - Preliminary
Blood/Venous No Growth in 24 hours- Final report to follow
01/15/25 13:17 Blood Culture - Preliminary
Blood/Venous No Growth in 24 hours- Final report to follow
01/15/25 13:18 Urine Culture - Final
Urine NO GROWTH
01/15/25 22:08 Blood Culture - Pending
Blood/Venous
01/15/25 21:47 Blood Culture - Pending
Blood/Venous
Assessment / Plan
# RLE cellulitis
# Ruptured blister with wound RLE
# Leukocytosis
# Recent hx RLE puncture wound/cellulitis, cx Pseudomonas, GBS, treated with levofloxacin through 12/05.
# Lymphedema
# Cephalexin allergy
- First 2 blood cultures negative to date. Urine culture negative.
-Agree with Zosyn based on prior culture
- Elevate lower extremity.
- Continue with Lorne wrap compression while in hospital and local wound care.
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
COPD
Hypertension
Paroxysmal atrial fibrillation
HLD
Spinal stenosis
Neuropathy
JESSICA
Class III obesity BMI 40
Bilateral LE lymphedema, compliant with compression pumps
Venous insufficiency h/x ablation
Left knee meniscal repair
Anal fistulotomy and endorectal advancement flap
[2025-01-16] MEDS: COZAAR 100 MG PO (17:08)
[2025-01-16 23:06] LABS: Urine Character Clear (Clear)
[2025-01-16 23:24] VITALS: BP 122/76
[2025-01-17] MEDS: ZOSYN 50 IV ×2 (02:54→10:57)
[2025-01-17 07:55] LABS: Hematocrit 38.1 % (39.0-52.0); Hemoglobin 13.0 g/dL (13.0-18.0); Mean Corp Hgb Conc. 34.1 g/dL (33.0-37.0); Mean Corpuscular Volume 87.8 fL (80.0-94.0); Platelet Count 199 10^3/uL (130-400); Red Cell Dist. Width 14.6 % (11.5-14.5)
[2025-01-17 08:43] LABS: Blood Urea Nitrogen 33 mg/dl (9-20); Calcium 8.1 mg/dl (8.4-10.2); Carbon Dioxide 23 mmol/L (22-30); Chloride 104 mmol/L (98-107); Estimated Creatinine Clearance 79 ml/min; Glucose 115 mg/dl (70-99); Potassium 3.7 mmol/L (3.5-5.1); Sodium 136 mmol/L (135-145); eGFR > 60.00
[2025-01-17 08:51] VITALS: BP 101/59
--- NOTE | 2025-01-17 09:10 | W.PN.HOSP.TC ---
Addendum entered and electronically signed by Lionel Jeffries MD 01/17/25 09:20:
addendum
Blood work is back
SUSANA, resolved
Leukocytosis, resolved
End
Original Note:
Today's Communication/Plan
-
c/w Lasix
IV ABx
Assessment / Plan
Assessment / Plan
Physical Exam
General: Well Developed, Well Nourished, No Apparent Distress and Morbidly Obese
HEENT: Normocephalic, Moist mucous membranes and Atraumatic
Respiratory: Clear
Cardiac: S1/S2
GI: Soft, Non Tender, Non Distended and Normal Bowel Sounds, obese.
Rectal: NO bleeding.
Musculoskeletal: No Clubbing, No Cyanosis and Other (Rt HARLEY cellulitis, redness above knee to ankle, with punctured wound )
Skin: Rash and Other (Bilateral LE lymphedema)
Neuro: AAOX 3, Followed commands, Nonfocal/grossly intact
Psych: Calm
# Sepsis POA with lactic acidosis, due to RLE cellulitis due to puncture wound : potential Group A step vs Staph cellulitis
not septic shock, mild hypotension on admission but not c/w shock
I do not see much improvement in erythema, he feels less pain and better
WCC > 10, LA > 2.4. Normal lactic acid now
- HX allergic reaction to Keflex prior to admission and vancomycin in the ER
- HX of tolerance to PCN in the past and tolerated Zosyn
- started Zosyn.
- septic IVF maintainable
- follow BCxs
- trend leukocytosis/fever curve appreciate ID consul,
Bilateral LE lymphedema, compliant with compression pumps
Venous insufficiency h/x ablation
- continue Lasix
HX JESSICA use BiPAP HS ( own)
Morbid obesity due to excess calories
- ordered for BiPAP to use own
# Morbid obesity, BMI 39,
Check hemoglobin A1c
Discussed with patient about his weight, he is aware of his unhealthy weight and reported that inability to perform exercise contributing and reports(I do not eat a lot)
Other problems:
Afib, presumed paroxysmal: cont Eliquis
Essential HTN: Hold ARB/lasix
DVT Px: Eliquis
Total time spent to see the patient, examine the patient, review data and lab result, discuss treatment plan with patient, nursing staff around 55 minutes
Anticipated Discharge: > 48 hours
Subjective/Interval History
-
Date of Service: January 17, 2025
No chest pain
No sob
No fevers
Objective Data
-
Labs:
Laboratory Results
01/17/25
07:06
WBC 10.3
Hgb 13.0
Hct 38.1 L
Plt Count 199
Sodium 136
Potassium 3.7
Chloride 104
Carbon Dioxide 23
BUN 33 H
Creatinine 1.1
Glucose 115 H
Calcium 8.1 L
Vital Signs:
Vital Signs
Temp Pulse Resp BP Pulse Ox
98.3 F 79 17 101/59 97
01/17/25 08:51 01/17/25 08:51 01/17/25 08:51 01/17/25 08:51 01/17/25 08:51
I&O
01/16/25 01/17/25 01/18/25
06:59 06:59 06:59
Intake Total 1240 / 1240 1000 / 1000
Balance 1240 / 1240 1000 / 1000
[2025-01-17 09:53] LABS: Glycohemoglobin (HgbA1c) 5.7 % (4.0-5.6)
[2025-01-17] MEDS: LASIX 80 MG PO ×2 (10:57→17:09)
[2025-01-17] MEDS: ELIQUIS 5 MG PO ×2 (10:57→19:36)
--- NOTE | 2025-01-17 12:57 | W.PN.ID1 ---
Date of Service
Date of Service: January 17, 2025
Today's Communication
Continue Zosyn
Assessment / Plan
# RLE cellulitis
# Ruptured blister with wound RLE
# Leukocytosis resolved
# Recent hx RLE puncture wound/cellulitis, cx Pseudomonas, GBS, treated with levofloxacin through 12/05.
# Lymphedema
# Cephalosporin allergy
- blood cultures negative to date. Urine culture negative.
- Increase dose Zosyn (d3).
- Elevate lower extremity.
- Continue with Lorne wrap compression while in hospital and local wound care.
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
COPD
Hypertension
Paroxysmal atrial fibrillation
HLD
Spinal stenosis
Neuropathy
JESSICA
Class III obesity BMI 40
Bilateral LE lymphedema, compliant with compression pumps
Venous insufficiency h/x ablation
Left knee meniscal repair
Anal fistulotomy and endorectal advancement flap
Chief Complaint
-: Cellulitis
Subjective / Review of Systems
No complaints today.
Vital Signs / Physical Exam
Vital Signs
Vital Signs
Temp Pulse Resp BP Pulse Ox
98.3 F 79 17 101/59 97
01/17/25 08:51 01/17/25 08:51 01/17/25 08:51 01/17/25 08:51 01/17/25 08:51
Physical Exam
Constitutional: No Acute Distress and Comfortable
Cardiovascular: Regular Rate and S1/S2
Pulmonary: Clear
Gastrointestinal: Soft and Non Tender
Extremities: Edema (RLE) and Erythema (Ankle to distal thigh stable, + warmth)
Neurological: AO x 3
Objective Data
Lab Data
Lab Results
01/17/25 07:06
01/17/25 07:06
Estimated Creat Clear 79 ml/min 01/17/25 07:06
Lactic Acid Cancelled 01/16/25 05:11
Total Bilirubin 1.0 mg/dl (0.2-1.3) 01/16/25 08:18
AST 30 U/L (17-59) 01/16/25 08:18
ALT 22 U/L (0-50) 01/16/25 08:18
Alkaline Phosphatase 54 U/L (38-126) 01/16/25 08:18
Most recent labs reviewed.
Micro Results:
01/15/25 22:08 Blood Culture - Preliminary
Blood/Venous No Growth in 24 hours- Final report to follow
01/15/25 21:47 Blood Culture - Preliminary
Blood/Venous No Growth in 24 hours- Final report to follow
01/15/25 13:52 Blood Culture - Preliminary
Blood/Venous No Growth in 24 hours- Final report to follow
01/15/25 13:17 Blood Culture - Preliminary
Blood/Venous No Growth in 24 hours- Final report to follow
01/15/25 13:18 Urine Culture - Final
Urine NO GROWTH
[2025-01-17 15:37] VITALS: BP 112/74
[2025-01-17] MEDS: COZAAR 100 MG PO (17:10)
[2025-01-17] MEDS: ZOSYN 100 IV (18:42)
[2025-01-17 23:38] VITALS: BP 94/57
[2025-01-18] MEDS: ZOSYN 100 IV ×4 (00:18→17:37)
[2025-01-18] MEDS: ELIQUIS 5 MG PO ×2 (07:41→19:57)
[2025-01-18 07:51] VITALS: BP 99/62
[2025-01-18] MEDS: LASIX 80 MG PO ×2 (08:23→16:47)
--- NOTE | 2025-01-18 09:28 | W.PN.HOSP.TC ---
Today's Communication/Plan
-
.
Assessment / Plan
Assessment / Plan
Physical Exam
General: Well Developed, Well Nourished, No Apparent Distress and Morbidly Obese
HEENT: Normocephalic, Moist mucous membranes and Atraumatic
Respiratory: Clear
Cardiac: S1/S2
GI: Soft, Non Tender, Non Distended and Normal Bowel Sounds, obese.
Rectal: NO bleeding.
Musculoskeletal: No Clubbing, No Cyanosis and Other (Rt HARLEY cellulitis, redness is less today, with punctured wound- no discharge )
Skin: Rash and Other (Bilateral LE lymphedema)
Neuro: AAOX 3, Followed commands, Nonfocal/grossly intact
Psych: Calm
# Sepsis POA with lactic acidosis, due to RLE cellulitis due to puncture wound : potential Group A step vs Staph cellulitis
not septic shock, mild hypotension on admission but not c/w shock
I see mild much improvement in erythema, he feels less pain and better
WCC > 10, LA > 2.4. Normal lactic acid now
- HX allergic reaction to Keflex prior to admission and vancomycin in the ER
- HX of tolerance to PCN in the past and tolerated Zosyn
- started Zosyn.
Appreciate ID help
Bilateral LE lymphedema, compliant with compression pumps
Venous insufficiency h/x ablation
- continue Lasix
HX JESSICA use BiPAP HS ( own)
Morbid obesity due to excess calories
- ordered for BiPAP to use own
# Morbid obesity, BMI 39,
Hemoglobin A1c 5.7
Discussed with patient about his weight, he is aware of his unhealthy weight and reported that inability to perform exercise contributing and reports(I do not eat a lot)
Other problems:
Afib, presumed paroxysmal: cont Eliquis
Essential HTN: c/w ARB/Lasix
DVT Px: Eliquis
Total time spent to see the patient, examine the patient, review data and lab result, discuss treatment plan with patient, nursing staff around 55 minutes
Anticipated Discharge: 24 - 48 hours
Subjective/Interval History
-
Date of Service: January 18, 2025
No chest pain
No sob
No worsening pain in the leg
Objective Data
-
Vital Signs:
Vital Signs
Temp Pulse Resp BP Pulse Ox
98.5 F 64 17 99/62 97
01/18/25 07:51 01/18/25 07:51 01/18/25 07:51 01/18/25 07:51 01/18/25 07:51
I&O
01/17/25 01/18/25 01/19/25
06:59 06:59 06:59
Intake Total 1000 / 1000 1110 / 1110
Balance 1000 / 1000 1110 / 1110
--- NOTE | 2025-01-18 09:49 | WOUNDNOTE ---
WO RN note: Patient seen briefly to change RLE dressing while Dr. Smith was in to see patient. RLE wound pink and full thickness suspect to subcutaneous layer. There is a pink broken blister to R of wound (not new). R knee high Lorne wrap reapplied.
Dr. Smith stated RLE wound improved. Wound spice cleaner than wound photo from 01/16. Le's elevated on pillows. Skin on heels intact. Patient ambulates short distances. He stated he uses compression pumps to LE's at home, is followed by [facility] and has VN. He
lives with his . Wound care nursing to follow as needed.
--- NOTE | 2025-01-18 12:32 | CM ---
Patient seen at bedside on . Patient with no new issues and is still planning for discharge home with his and VN to follow. CM will continue to follow for discharge planning needs.
Plan; home with [facility] to follow
--- NOTE | 2025-01-18 13:44 | W.PN.ID1 ---
Date of Service
Date of Service: January 18, 2025
Today's Communication
Continue zosyn
Assessment / Plan
# RLE cellulitis, improving
# Ruptured blister with wound RLE
# Leukocytosis resolved
# Recent hx RLE puncture wound/cellulitis, cx Pseudomonas, GBS, treated with levofloxacin through 12/05.
# Lymphedema
# Cephalosporin allergy
- blood cultures negative to date. Urine culture negative.
- Continue Zosyn (d4).
- Elevate lower extremity.
- Continue with Lorne wrap compression while in hospital and local wound care.
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
COPD
Hypertension
Paroxysmal atrial fibrillation
HLD
Spinal stenosis
Neuropathy
JESSICA
Class III obesity BMI 40
Bilateral LE lymphedema, compliant with compression pumps
Venous insufficiency h/x ablation
Left knee meniscal repair
Anal fistulotomy and endorectal advancement flap
Chief Complaint
-: Cellulitis
Subjective / Review of Systems
Feeling better.
Vital Signs / Physical Exam
Vital Signs
Vital Signs
Temp Pulse Resp BP Pulse Ox
98.5 F 64 17 99/62 97
01/18/25 07:51 01/18/25 07:51 01/18/25 07:51 01/18/25 07:51 01/18/25 07:51
Physical Exam
Constitutional: No Acute Distress
Extremities: Edema (RLE decrease) and Erythema (RLE erythema/warmth decreasing)
Wound: Other (RLE wound granulation tissue, clean/dry)
Neurological: AO x 3
Objective Data
Lab Data
Lab Results
01/17/25 07:06
01/17/25 07:06
Estimated Creat Clear 79 ml/min 01/17/25 07:06
Lactic Acid Cancelled 01/16/25 05:11
Total Bilirubin 1.0 mg/dl (0.2-1.3) 01/16/25 08:18
AST 30 U/L (17-59) 01/16/25 08:18
ALT 22 U/L (0-50) 01/16/25 08:18
Alkaline Phosphatase 54 U/L (38-126) 01/16/25 08:18
Most recent labs reviewed.
Micro Results:
01/15/25 13:17 Blood Culture - Preliminary
Blood/Venous No Growth in 72 hours- Final report to follow
01/15/25 22:08 Blood Culture - Preliminary
Blood/Venous No Growth in 48 hours- Final report to follow
01/15/25 21:47 Blood Culture - Preliminary
Blood/Venous No Growth in 48 hours- Final report to follow
01/15/25 13:52 Blood Culture - Preliminary
Blood/Venous No Growth in 48 hours- Final report to follow
01/15/25 13:18 Urine Culture - Final
Urine NO GROWTH
Care Review
Plan reviewed with: Nurse (Milli)
[2025-01-18 16:03] VITALS: BP 102/65
[2025-01-18 23:40] VITALS: BP 124/74
[2025-01-19] MEDS: ZOSYN 100 IV ×5 (00:17→23:27)
[2025-01-19 07:30] VITALS: BP 133/83
[2025-01-19] MEDS: LASIX 80 MG PO ×2 (07:39→16:45)
[2025-01-19] MEDS: ELIQUIS 5 MG PO ×2 (07:39→20:18)
--- NOTE | 2025-01-19 08:36 | W.PN.HOSP.TC ---
Today's Communication/Plan
-
Hold losartan while in hospital
c/w IV Zosyn
Assessment / Plan
Assessment / Plan
Physical Exam
General: Well Developed, Well Nourished, No Apparent Distress and Morbidly Obese
HEENT: Normocephalic, Moist mucous membranes and Atraumatic
Respiratory: Clear
Cardiac: S1/S2
GI: Soft, Non Tender, Non Distended and Normal Bowel Sounds, obese.
Rectal: NO bleeding.
Musculoskeletal: No Clubbing, No Cyanosis and Other (Rt HARLEY cellulitis, redness is less today, with punctured wound- no discharge )
Skin: (Bilateral LE lymphedema)
Neuro: AAOX 3, Followed commands, Nonfocal/grossly intact
Psych: Calm
# Sepsis POA with lactic acidosis, due to RLE cellulitis due to puncture wound : potential Group A step vs Staph cellulitis
not septic shock, mild hypotension on admission but not c/w shock
good improvement in erythema, he feels less pain and better
WCC > 10, LA > 2.4. Normal lactic acid now
- HX allergic reaction to Keflex prior to admission and vancomycin in the ER
- HX of tolerance to PCN in the past and tolerated Zosyn
- started Zosyn.
Appreciate ID help
# essential HTN
Low BP in hospital
will hold losartan to c/w Lasix. Pt reported he had low BP in hospital before but better at home, might be food related.
Bilateral LE lymphedema, compliant with compression pumps
Venous insufficiency h/x ablation
- continue Lasix
HX JESSICA use BiPAP HS ( own)
Morbid obesity due to excess calories
- ordered for BiPAP to use own
# Morbid obesity, BMI 39,
Hemoglobin A1c 5.7
Discussed with patient about his weight, he is aware of his unhealthy weight and reported that inability to perform exercise contributing and reports(I do not eat a lot)
Other problems:
Afib, presumed paroxysmal: cont Eliquis
Essential HTN: c/w Lasix
DVT Px: Eliquis
Total time spent to see the patient, examine the patient, review data and lab result, discuss treatment plan with patient, ID doctor, , nursing staff around 55 minutes
Anticipated Discharge: 24 - 48 hours
Subjective/Interval History
-
Date of Service: January 19, 2025
he feels better
denies worsening pain in leg
Objective Data
-
Vital Signs:
Vital Signs
Temp Pulse Resp BP Pulse Ox
98.2 F 78 16 133/83 94
01/18/25 23:40 01/19/25 07:39 01/18/25 23:40 01/19/25 07:39 01/18/25 23:40
I&O
01/18/25 01/19/25 01/20/25
06:59 06:59 06:59
Intake Total 1110 / 1110 480 / 480
Balance 1110 / 1110 480 / 480
--- NOTE | 2025-01-19 11:10 | W.PN.ID1 ---
Date of Service
Date of Service: January 19, 2025
Today's Communication
Continue Zosyn
Assessment / Plan
# RLE cellulitis, improving
# Ruptured blister with wound RLE
# Leukocytosis resolved
# Recent hx RLE puncture wound/cellulitis, cx Pseudomonas, GBS, treated with levofloxacin through 12/05.
# Lymphedema
# Cephalosporin allergy
- blood cultures negative to date. Urine culture negative.
- Elevate lower extremity.
- Continue with Lorne wrap compression while in hospital and local wound care.
- Continue Zosyn (d5).
- At time of discharge, transition to levofloxacin 750mg po daily through 01/24/25.
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
COPD
Hypertension
Paroxysmal atrial fibrillation
HLD
Spinal stenosis
Neuropathy
JESSICA
Class III obesity BMI 40
Bilateral LE lymphedema, compliant with compression pumps
Venous insufficiency h/x ablation
Left knee meniscal repair
Anal fistulotomy and endorectal advancement flap
Chief Complaint
-: Cellulitis
Subjective / Review of Systems
Feels better.
Vital Signs / Physical Exam
Vital Signs
Vital Signs
Temp Pulse Resp BP Pulse Ox
97.6 F 78 18 133/83 97
01/19/25 07:30 01/19/25 07:39 01/19/25 07:30 01/19/25 07:39 01/19/25 07:30
Physical Exam
Constitutional: No Acute Distress and Comfortable
Pulmonary: Clear
Gastrointestinal: Soft, Non Tender and Non Distended
Extremities: Edema (RLE decrease) and Erythema (RLE erythema decreasing and receding)
Objective Data
Lab Data
Lab Results
01/17/25 07:06
01/17/25 07:06
Estimated Creat Clear 79 ml/min 01/17/25 07:06
Lactic Acid Cancelled 01/16/25 05:11
Total Bilirubin 1.0 mg/dl (0.2-1.3) 01/16/25 08:18
AST 30 U/L (17-59) 01/16/25 08:18
ALT 22 U/L (0-50) 01/16/25 08:18
Alkaline Phosphatase 54 U/L (38-126) 01/16/25 08:18
Most recent labs reviewed.
Micro Results:
01/15/25 22:08 Blood Culture - Preliminary
Blood/Venous No Growth in 72 hours- Final report to follow
01/15/25 21:47 Blood Culture - Preliminary
Blood/Venous No Growth in 72 hours- Final report to follow
01/15/25 13:52 Blood Culture - Preliminary
Blood/Venous No Growth in 72 hours- Final report to follow
01/15/25 13:17 Blood Culture - Preliminary
Blood/Venous No Growth in 72 hours- Final report to follow
01/15/25 13:18 Urine Culture - Final
Urine NO GROWTH
Care Review
Plan reviewed with: Physician (Dr. Jefrfies)
[2025-01-19 15:25] VITALS: BP 120/72
[2025-01-20] MEDS: ZOSYN 100 IV ×2 (05:57→12:20)
[2025-01-20 07:55] VITALS: BP 131/83
[2025-01-20] MEDS: LASIX 80 MG PO (08:20)
[2025-01-20] MEDS: ELIQUIS 5 MG PO (08:21)
[2025-01-20 08:41] LABS: Hematocrit 39.2 % (39.0-52.0); Hemoglobin 13.2 g/dL (13.0-18.0); Mean Corp Hgb Conc. 33.7 g/dL (33.0-37.0); Mean Corpuscular Volume 89.7 fL (80.0-94.0); Platelet Count 272 10^3/uL (130-400); Red Cell Dist. Width 14.1 % (11.5-14.5)
--- NOTE | 2025-01-20 09:13 | W.PN.HOSP.TC ---
Today's Communication/Plan
-
dc
Assessment / Plan
Assessment / Plan
Physical Exam
General: Well Developed, Well Nourished, No Apparent Distress and Morbidly Obese
HEENT: Normocephalic, Moist mucous membranes and Atraumatic
Respiratory: Clear
Cardiac: S1/S2
GI: Soft, Non Tender, Non Distended and Normal Bowel Sounds, obese.
Rectal: NO bleeding.
Musculoskeletal: No Clubbing, No Cyanosis and Other (Rt HARLEY cellulitis, redness is less today, with punctured wound- no discharge )
Skin: (Bilateral LE lymphedema)
Neuro: AAOX 3, Followed commands, Nonfocal/grossly intact
Psych: Calm
# Sepsis POA with lactic acidosis, due to RLE cellulitis due to puncture wound : potential Group A step vs Staph cellulitis
not septic shock, mild hypotension on admission but not c/w shock
good improvement in erythema, he feels less pain and better
WCC > 10, LA > 2.4. Normal lactic acid now
- HX allergic reaction to Keflex prior to admission and vancomycin in the ER
- HX of tolerance to PCN in the past and tolerated Zosyn
-
- started Zosyn, dc on Levaquin, counseled about potential side effects .
Appreciate ID help
# essential HTN
Low BP in hospital
Resume losartan upon dc. BP is stable now.
Bilateral LE lymphedema, compliant with compression pumps
Venous insufficiency h/x ablation
Advise to wear compression stocking as instructed
- continue Lasix
HX JESSICA use BiPAP HS ( own)
Morbid obesity due to excess calories
- ordered for BiPAP to use own
# Morbid obesity, BMI 39,
Hemoglobin A1c 5.7
Discussed with patient about his weight, he is aware of his unhealthy weight and reported that inability to perform exercise contributing and reports(I do not eat a lot)
Other problems:
Afib, presumed paroxysmal: cont Eliquis
Essential HTN: c/w Lasix
DVT Px: Eliquis
Total discharge time spent to see the patient, examine the patient, review data and lab result, discuss discharge plan with patient, ID doctor, nursing staff around 67 minutes
Anticipated Discharge: Today
Subjective/Interval History
-
Date of Service: January 20, 2025
no chest pain
No sob
No fevers
Feels better, wants to go home
Objective Data
-
Labs:
Laboratory Results
01/20/25
08:07
WBC 9.0
Hgb 13.2
Hct 39.2
Plt Count 272 D
Sodium Pending
Potassium Pending
Chloride Pending
Carbon Dioxide Pending
BUN Pending
Creatinine Pending
Glucose Pending
Calcium Pending
Vital Signs:
Vital Signs
Temp Pulse Resp BP Pulse Ox
98.1 F 76 20 131/83 96
01/20/25 07:55 01/20/25 08:20 01/20/25 07:55 01/20/25 08:20 01/20/25 07:55
I&O
01/19/25 01/20/25 01/21/25
06:59 06:59 06:59
Intake Total 480 / 480 1160 / 1160
Balance 480 / 480 1160 / 1160
[2025-01-20 09:24] LABS: Blood Urea Nitrogen 21 mg/dl (9-20); Calcium 8.5 mg/dl (8.4-10.2); Carbon Dioxide 27 mmol/L (22-30); Chloride 104 mmol/L (98-107); Estimated Creatinine Clearance 79 ml/min; Glucose 107 mg/dl (70-99); Potassium 4.3 mmol/L (3.5-5.1); Sodium 138 mmol/L (135-145); eGFR > 60.00
--- NOTE | 2025-01-20 10:44 | W.PN.ID1 ---
Addendum entered and electronically signed by Karine Smith MD 01/20/25 10:49:
Transition Zosyn to levofloxacin 750mg po daily through 01/24/25.
Original Note:
Date of Service
Date of Service: January 20, 2025
Today's Communication
- Transition Zosyn to levofloxacin 750mg po daily through 01/28/25.
Assessment / Plan
# RLE cellulitis, improving
# Ruptured blister with wound RLE
# Leukocytosis resolved
# Recent hx RLE puncture wound/cellulitis, cx Pseudomonas, GBS, treated with levofloxacin through 12/05.
# Lymphedema
# Cephalosporin allergy
- blood cultures negative to date. Urine culture negative.
- Continue with Lorne wrap compression while in hospital and local wound care.
- Transition Zosyn to levofloxacin 750mg po daily through 01/28/25. QTc is OK.
- Stressed importance of compliance with compression and leg elevation.
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
COPD
Hypertension
Paroxysmal atrial fibrillation
HLD
Spinal stenosis
Neuropathy
JESSICA
Class III obesity BMI 40
Bilateral LE lymphedema, compliant with compression pumps
Venous insufficiency h/x ablation
Left knee meniscal repair
Anal fistulotomy and endorectal advancement flap
Chief Complaint
-: Cellulitis
Subjective / Review of Systems
Feels well.
Vital Signs / Physical Exam
Vital Signs
Vital Signs
Temp Pulse Resp BP Pulse Ox
98.1 F 76 20 131/83 96
01/20/25 07:55 01/20/25 08:20 01/20/25 07:55 01/20/25 08:20 01/20/25 07:55
Physical Exam
Constitutional: No Acute Distress and Comfortable
Pulmonary: Clear
Gastrointestinal: Soft, Non Tender and Non Distended
Extremities: Edema (RLE decrease) and Erythema (RLE erythema decreasing and receding)
Objective Data
Lab Data
Lab Results
01/20/25 08:07
01/20/25 08:07
Estimated Creat Clear 79 ml/min 01/20/25 08:07
Lactic Acid Cancelled 01/16/25 05:11
Total Bilirubin 1.0 mg/dl (0.2-1.3) 01/16/25 08:18
AST 30 U/L (17-59) 01/16/25 08:18
ALT 22 U/L (0-50) 01/16/25 08:18
Alkaline Phosphatase 54 U/L (38-126) 01/16/25 08:18
Most recent labs reviewed.
Micro Results:
01/15/25 22:08 Blood Culture - Preliminary
Blood/Venous No Growth in 4 days- Final report to follow
01/15/25 21:47 Blood Culture - Preliminary
Blood/Venous No Growth in 4 days- Final report to follow
01/15/25 13:52 Blood Culture - Preliminary
Blood/Venous No Growth in 4 days- Final report to follow
01/15/25 13:17 Blood Culture - Preliminary
Blood/Venous No Growth in 4 days- Final report to follow
01/15/25 13:18 Urine Culture - Final
Urine NO GROWTH
--- NOTE | 2025-01-20 11:20 | CM ---
CM reviewed chart, patient seen bedside, for discharge today. Patient confirms will provide transportation home around 1:00 p.m. IMM reviewed, signed, placed in chart, denies need for copy. Patient will return services with VN. CM will
continue to follow for all discharge planning needs.
Plan; home with , VN
--- NOTE | 2025-01-20 11:40 | PTCARENOTE ---
Assumed care of pt from previous nurse. Pt denies pain. Pt for dc today. Wound care completed. Pt call taylor is within reach, pt rings maria g. will cont to monitor.
[2025-01-20 12:30] VITALS: BP 128/81
--- NOTE | 2025-01-20 13:25 | W.DCSUMMARY ---
Discharge Summary
Discharge Data
Date of Admission: 01/15/25
Date of Discharge: 01/20/25
-
Pending Results: No
Hospital Course
79 years old male presented with right lower extremity cellulitis. Patient was evaluated by infectious disease it infrastructure consultant. He had leukocytosis on admission. Blood culture did not show any growth. Patient received intravenous Zosyn while in the
hospital. Patient has bilateral lower extremity lymphedema. He was advised and counseled to continue with compression stocking use. Cellulitis started to improve with improvement in edema and erythema. He did not need pain killers for
discomfort. Patient remained hemodynamically stable was discharged home to finish course of treatment with Levaquin. Patient was counseled regarding potential side effects of Levaquin. Patient was discharged home in a stable condition.
Discharge Plan
-
Patient Disposition: Home (Routine Discharge)
Discharge Diagnosis/Procedures: -RLE cellulitis
- Ruptured blister with wound RLE
You received IV Zosyn, you were followed by ID doctor, You will need to take Levaquin at home. Potential side effects of Levaquin include tendinitis, stop taking Levaquin if you start to have unusual tendon/joint pain.
-Obesity with bilateral lower extremity lymphedema. Continue to wear compression stocking. Recommend to follow dietary regimen to lose weight.
Diet: As tolerated and Low Sodium
Activity Restrictions/Additional Instructions:
Wound Care Instructions Left Leg Wounds- Clean with Vashe moistened gauze. Apply no-sting barrier around both wounds. May apply adaptic PRN to open blister. Pack puncture wound with mesalt ribbon. Cover with dry dressing. Change daily.
Compression to left lower leg with DALJIT or Tubi-soup mixer
Keep heels off-loaded with pillow or air cushion under calf when in bed
Encourage frequent ambulation, turning and repositioning.
Follow up at wound care center call for an appointment.
Referrals:
Blaise Lizarraga PA-C [Family Provider, Family Practice] - in one to two weeks
Prescriptions:
New
levofloxacin 750 mg tablet
750 mg PO DAILY 4 Days Qty: 4 0RF
Continued
therapeutic multivitamin Tablet
1 tab PO DAILY
losartan 100 mg Tablet
100 mg PO QPM
Eliquis 5 mg tablet
5 mg PO BID
acetaminophen [Tylenol Extra Strength] 500 mg Tablet
1,000 mg PO Q6HPRN PRN (Reason: mild pain)
furosemide 80 mg Tablet
80 mg PO BID
Discontinued
tramadol 50 mg Tablet
50 mg PO DIRECTED
Patient Comments:
01/15/2025, pt. takes one tablet prior to his wound care appointments; filled on 12/23/2024 for 10 tablets for 3-day supply per [facility].
Discharge Orders:
Discharge Patient (As Directed); Ordered 01/20/25
Ordered By: Lionel Jeffries
Discharge Date and Time
Print Language: BAHAMIAN
--- NOTE | 2025-01-20 15:20 | PTCARENOTE ---
Pt dc'd to home with via their car, home with vn. Pt paperwork reviewed, copy provided iv removed, all belongings from room with pt.
== END 2025-01-20 16:49 | disposition home health service (06) | DRG 872 ==
LOC: 4 WEST ACU 14:54
PROVIDERS: ADMITTING PHYSICIAN Internal Medicine; ATTENDING PHYSICIAN Internal Medicine; EMERGENCY PHYSICIAN Emergency Medicine; FAMILY PHYSICIAN Physician Assistant Medical; OTHER PHYSICIAN Internal Medicine Infectious Disease
PROC: 5A09357 Assistance with Respiratory Ventilation, Less than 24 Consecutive Hours, Continuous Positive Airway Pressure (ICD-10-PCS; 2025-01-15)
DX: A41.9 Sepsis, unspecified organism (principal); L03.115 Cellulitis of right lower limb; Z68.41 Body mass index [BMI] 40.0-44.9, adult; E87.20 Acidosis, unspecified; N17.9 Acute kidney failure, unspecified; E66.813 Obesity, class 3; I10 Essential (primary) hypertension; G47.33 Obstructive sleep apnea (adult) (pediatric); I45.10 Unspecified right bundle-branch block; I89.0 Lymphedema, not elsewhere classified; M19.90 Unspecified osteoarthritis, unspecified site; J44.9 Chronic obstructive pulmonary disease, unspecified; I87.2 Venous insufficiency (chronic) (peripheral); I48.0 Paroxysmal atrial fibrillation; E78.5 Hyperlipidemia, unspecified; G62.9 Polyneuropathy, unspecified; S81.831A Puncture wound without foreign body, right lower leg, initial encounter; X58.XXXA Exposure to other specified factors, initial encounter; Y93.9 Activity, unspecified; Y92.9 Unspecified place or not applicable; Z87.891 Personal history of nicotine dependence; Z88.1 Allergy status to other antibiotic agents; Z91.040 Latex allergy status; Z79.01 Long term (current) use of anticoagulants
CPT/HCPCS: 80048; 80053; 81003; 81015; 83036; 83605; 84484; 85025; 85027; 87040; 87086; 93005; 94660; 96365; 99285

== ENCOUNTER → 2025-01-30 09:36 | Outpatient (REF) | payer MEDICARE, BC, SELFPAY | LOC: WOUND 09:36 | PROVIDERS: ATTENDING PHYSICIAN Surgery; FAMILY PHYSICIAN Physician Assistant Medical | DX: L97.222 Non-pressure chronic ulcer of left calf with fat layer exposed (principal); I73.9 Peripheral vascular disease, unspecified; I89.0 Lymphedema, not elsewhere classified; E66.01 Morbid (severe) obesity due to excess calories; J44.9 Chronic obstructive pulmonary disease, unspecified; Z87.891 Personal history of nicotine dependence | CPT/HCPCS: 11042 ==

== ENCOUNTER 2025-02-03 13:58 | Outpatient (RCR) | payer MEDICARE, BC, SELFPAY | END 2025-02-03 23:59 | disposition home or self-care (01) | LOC: RPT 13:58 | PROVIDERS: ATTENDING PHYSICIAN Physician Assistant Medical | DX: H81.12 Benign paroxysmal vertigo, left ear (principal); Z73.6 Limitation of activities due to disability | CPT/HCPCS: 97112 ==

== ENCOUNTER → 2025-02-06 08:32 | Outpatient (REF) | payer MEDICARE, BC, SELFPAY | LOC: WOUND 08:32 | PROVIDERS: ATTENDING PHYSICIAN Surgery | DX: L97.212 Non-pressure chronic ulcer of right calf with fat layer exposed (principal); I73.9 Peripheral vascular disease, unspecified; I89.0 Lymphedema, not elsewhere classified; E66.01 Morbid (severe) obesity due to excess calories; J44.9 Chronic obstructive pulmonary disease, unspecified; Z87.891 Personal history of nicotine dependence | CPT/HCPCS: 11042 ==

== ENCOUNTER → 2025-02-20 08:35 | Outpatient (REF) | payer MEDICARE, BC, SELFPAY | LOC: WOUND 08:35 | PROVIDERS: ATTENDING PHYSICIAN Surgery; FAMILY PHYSICIAN Physician Assistant Medical | DX: L97.212 Non-pressure chronic ulcer of right calf with fat layer exposed (principal); I73.9 Peripheral vascular disease, unspecified; I89.0 Lymphedema, not elsewhere classified; E66.01 Morbid (severe) obesity due to excess calories; J44.9 Chronic obstructive pulmonary disease, unspecified; Z87.891 Personal history of nicotine dependence | CPT/HCPCS: 99213 ==

== ENCOUNTER → 2025-03-06 10:10 | Outpatient (REF) | payer MEDICARE, BC, SELFPAY | LOC: WOUND 10:10 | PROVIDERS: ATTENDING PHYSICIAN Surgery; FAMILY PHYSICIAN Physician Assistant Medical | DX: L97.212 Non-pressure chronic ulcer of right calf with fat layer exposed (principal); I73.9 Peripheral vascular disease, unspecified; I89.0 Lymphedema, not elsewhere classified; E66.01 Morbid (severe) obesity due to excess calories; J44.9 Chronic obstructive pulmonary disease, unspecified; Z87.891 Personal history of nicotine dependence | CPT/HCPCS: 99212 ==